=== PATIENT | male | born 1965 | race Caucasian/White ===

== ENCOUNTER 2017-05-11 16:53 | Inpatient (IN) | payer BC, OTHER ==
[~2017-05-11] VITALS: Ht 193 cm; Wt 111.5 kg
[2017-05-11] MEDS ORDERED: SOD CHLORIDE 0.9% 1,000 ML IV STA (21:09)
[2017-05-11] MEDS ORDERED: ONDANSETRON 4 MG INJ IV STA (21:09)
[2017-05-11] MEDS ORDERED: morphine 4 MG/ML VIAL IV STA (21:09)
[2017-05-11 21:40] LABS: ADD SCAN DIFF NO
[2017-05-11 21:49] LABS: ABNORMAL IP MESSAGE 1; HEMATOCRIT 42.6 % (42.0-52.0); MEAN CORPUSCULAR HEMOGLOBIN 31.4 pg (29.0-33.0); MEAN CORPUSCULAR HGB CONC 35.2 g/dl (32.0-37.0); MEAN CORPUSCULAR VOLUME 89.3 fl (82.0-101.0); MEAN PLATELET VOLUME 13.9 fl (7.4-10.4); PLATELET COUNT 180 10^3/UL (140-415); RED BLOOD COUNT 4.77 10^6/ul (4.70-6.10); RED CELL DISTRIBUTION WIDTH 12.6 % (11.5-14.5); WHITE BLOOD COUNT 10.9 10^3/ul (4.8-10.8)
[2017-05-11 22:00] LABS: INR 0.99; PROTIME 13.1 Sec (12.2-14.2)
[2017-05-11 22:01] LABS: PARTIAL THROMBOPLASTIN TIME 26.3 Sec (25.0-35.0)
[2017-05-11 22:02] LABS: ALBUMIN 4.5 g/dl (3.3-4.9); ALBUMIN/GLOBULIN RATIO 1.6; BILIRUBIN,INDIRECT 0.2 mg/dl (0-1.1); BILIRUBIN,TOTAL 0.2 mg/dl (0.2-1.3); CALCIUM 9.9 mg/dl (8.4-10.2); CREATININE 0.79 mg/dl (0.61-1.24); POTASSIUM 3.8 mmol/L (3.5-5.1); TOTAL PROTEIN 7.3 g/dl (6.1-8.1)
[2017-05-11] MEDS ORDERED: IOHEXOL 300MG/ML 150 ML BTL ONE (22:27)
[2017-05-11] MEDS ORDERED: SOD CHLORIDE 0.9% 100 ML ONE (22:27)
[2017-05-11] MEDS ORDERED: HYDROmorphONE 1 MG/ML SYG IV STA (22:30)
[2017-05-11 22:58] LABS: EOSINOPHILS # 0.3 10^3/ul (0.0-0.5); LYMPHOCYTES # 3.5 10^3/ul (0.8-2.9); MONOCYTE # 0.8 10^3/ul (0.3-0.9); NEUTROPHIL # 6.3 10^3/ul (1.6-7.5)
--- NOTE | 2017-05-11 23:10 | RADRPT ---
PROCEDURE: XR Chest. CLINICAL INDICATION: Abdominal Pain TECHNIQUE: Single frontal view of the chest. COMPARISON: None. FINDINGS: The cardiomediastinal silhouette is within normal limits. Pulmonary vascular ingestion and bilateral lung base atelectasis versus airspace disease. findings suggest mild failure versus mild bilateral lung base pneumonias, left greater than right. No signs of pleural fluid or pneumothorax are seen. The osseous structures and soft tissues are unremarkable. IMPRESSION: Mild failure versus mild bilateral lung base pneumonias, left greater than right. RPTAT: [facility] Physician Asael Date Time Electronically viewed and signed by Physician Asael on 05/11/2017 23:10 RS/
--- NOTE | 2017-05-11 23:50 | RADRPT ---
PROCEDURE: CT Abdomen and Pelvis with contrast. CLINICAL INDICATION: Abdominal and back pain. TECHNIQUE: A CT scan of the abdomen and pelvis was performed with intravenous contrast. The patie nt was scanned following the uncomplicated intravenous administration of 100 cc of Omnipaque-300. C oronal and sagittal reformatted images were obtained from the axial source images. Images were revie wed on a high-resolution PACS workstation. CTDIvol: 21.28 mGy. DLP: 1440.07 mGy-cm. One or more of the following dose reduction techniques were used: - Automated exposure control. - Adjustment of the mA and/or kV according to patient size. - Use of iterative reconstruction technique. COMPARISON: None. FINDINGS: There is mild atelectasis in both lower lungs. A trace right pleural effusion is noted. There are scattered low attenuation hepatic lesions measuring up to 3.2 cm in the right hepatic lobe , nonspecific. The gallbladder is normal in appearance. The common bile duct is not dilated. A nonsp ecific 1.0 cm low-attenuation lesion is noted in the posterior spleen. There is a 4.6 x 6.5 x 4.9 cm hypoenhancing mass in the pancreas body and tail, suspicious for adeno carcinoma. The mass broadly abuts the posterior gastric body and encases the celiac and proximal spl enic arteries, without evidence of arterial occlusion. The splenic vein appears completely occluded as it courses through the lesion. Venous collaterals are noted in the left upper quadrant. The sup erior mesenteric and portal veins are widely patent. Several small peripancreatic and gastrohepatic lymph nodes are identified in the region of the mass. These are nonspecific but at least some of th em appear suspicious for metastatic disease. The kidneys are normal in size. There is no perinephric fat stranding. No hydronephrosis is seen. Th e adrenal glands are unremarkable. The small and large bowel are normal in caliber. There is no bowel wall thickening. The appendix is normal. The urinary bladder is unremarkable. The pelvic organs are within normal limits. There is no ascites. No pneumoperitoneum is seen. There are mild arterial calcifications. There is a very small fat-containing umbilical hernia. There are calcified injection granulomas in the subcutaneous fat of both buttocks. No suspicious osseous lesion is idenitified. Degenerative changes are noted at L5-S1, with moderate to severe bilateral neural foraminal narrowing. The patient status post prior internal fixation of the left femur. IMPRESSION: 1. 4.6 x 6.5 x 4.9 cm hypoenhancing mass in the pancreas body and tail, suspicious for adenocarcino ma. The mass broadly abuts the posterior gastric body and encases the celiac and proximal splenic ar teries, without evidence of arterial occlusion. The splenic vein appears completely occluded as it c ourses through the lesion. 2. Several small peripancreatic and gastrohepatic lymph nodes in the region of the mass. These are nonspecific but at least some of them appear suspicious for metastatic disease. 3. Scattered low attenuation hepatic lesions measuring up to 3.2 cm in the right hepatic lobe, nons pecific but suspicious for metastases. These could be further evaluated with [address] or contrast enhanced MRI if clinically warranted. 4. Nonspecific 1.0 cm low-attenuation lesion in the posterior spleen, also possibly representing a metastasis. This could be further evaluated with ultrasound or contrast enhanced MRI if clinically warranted. 5. Mild atherosclerotic arterial calcifications. 6. Moderate to severe bilateral neural foraminal narrowing at L5-S1. Call report: A call report of the findings was made to Dr. Everett at 11:46 p.m. on 05/11/2017. RPTAT: HTAR .[place] Londono MD, Date Time Electronically viewed and signed by .[place] Londono MD, MD on 05/11/2017 23:50 .R/
[2017-05-12] MEDS ORDERED: ACETAMINOPHEN 325 MG TAB PO PRN ×2 (00:30→03:00)
[2017-05-12] MEDS ORDERED: ONDANSETRON 4 MG INJ IV PRN (00:30)
[2017-05-12] MEDS ORDERED: HYDROmorphONE 1 MG/ML SYG IV STA (00:44)
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
[2017-05-12] MEDS ORDERED: DOCUSATE SODIUM 100 MG CAP PO PRN (03:00)
[2017-05-12] MEDS ORDERED: DEXTROSE 5%-0.9% NACL 1,000 ML IV SCH (03:00)
[2017-05-12] MEDS ORDERED: DEXTROSE 50% 50 ML SYRINGE IV PRN ×2 (03:15)
[2017-05-12] MEDS ORDERED: GLUCAGON 1 MG INJ IM PRN (03:15)
[2017-05-12] MEDS ORDERED: GLUCOSE GEL 15 GRAM TUBE BUCCAL PRN (03:15)
[2017-05-12] MEDS ORDERED: GLUCOSE GEL 15 GRAM TUBE PO PRN ×2 (03:15)
[2017-05-12] MEDS: HYDROmorphONE 1 MG/ML SYG IV PRN ×3 (03:22→09:40)
[2017-05-12 04:32] LABS: ADD SCAN DIFF NO
[2017-05-12 04:43] LABS: ABNORMAL IP MESSAGE 1; BASOPHILS % 0.4 % (0.0-2.0); EOSINOPHILS # 0.2 10^3/ul (0.0-0.5); EOSINOPHILS % 2.1 % (0.0-7.0); HEMATOCRIT 40.5 % (42.0-52.0); HEMOGLOBIN 13.5 g/dl (14.0-18.0); LYMPHOCYTES # 2.7 10^3/ul (0.8-2.9); LYMPHOCYTES % 26.3 % (15.0-51.0); MEAN CORPUSCULAR HEMOGLOBIN 30.4 pg (29.0-33.0); MEAN CORPUSCULAR HGB CONC 33.3 g/dl (32.0-37.0); MEAN CORPUSCULAR VOLUME 91.2 fl (82.0-101.0); MEAN PLATELET VOLUME 13.4 fl (7.4-10.4); MONOCYTE # 0.7 10^3/ul (0.3-0.9); MONOCYTES % 7.1 % (0.0-11.0); NEUTROPHIL # 6.6 10^3/ul (1.6-7.5); NEUTROPHILS % 63.3 % (39.0-77.0); PLATELET COUNT 174 10^3/UL (140-415); RED BLOOD COUNT 4.44 10^6/ul (4.70-6.10); RED CELL DISTRIBUTION WIDTH 12.7 % (11.5-14.5); WHITE BLOOD COUNT 10.4 10^3/ul (4.8-10.8)
[2017-05-12 04:58] LABS: ALBUMIN/GLOBULIN RATIO 1.66; BILIRUBIN,INDIRECT 0.1 mg/dl (0-1.1); BILIRUBIN,TOTAL 0.1 mg/dl (0.2-1.3); CALCIUM 8.8 mg/dl (8.4-10.2); CREATININE 0.83 mg/dl (0.61-1.24); POTASSIUM 4.1 mmol/L (3.5-5.1); TOTAL PROTEIN 6.4 g/dl (6.1-8.1)
[2017-05-12 06:13] LABS: ADD UMIC NO; UR ASCORBIC ACID NEGATIVE (NEGATIVE); UR BILIRUBIN (Dip) NEGATIVE (NEGATIVE); UR BLOOD (Dip) NEGATIVE (NEGATIVE); UR CLARITY CLEAR (CLEAR); UR COLOR YELLOW (YELLOW); UR GLUCOSE (Dip) NEGATIVE (NEGATIVE); UR KETONES (Dip) TRACE mg/dL (NEGATIVE); UR LEUKOCYTE ESTERASE (Dip) NEGATIVE Leu/ul (NEGATIVE); UR NITRITE (Dip) NEGATIVE (NEGATIVE); UR SPECIFIC GRAVITY (Dip) 1.059 (1.003-1.030); UR TOTAL PROTEIN (Dip) NEGATIVE (NEGATIVE); UR UROBILINOGEN (Dip) NEGATIVE (NEGATIVE)
[2017-05-12] MEDS: PANTOPRAZOLE 40 MG INJ IV SCH (06:28)
[2017-05-12 07:43] VITALS: BP 137/89; RESP 18
[2017-05-12] MEDS: NICOTINE (21 MG/24 HR) PATCH TRANSDERM SCH (08:49)
[2017-05-12] MEDS: INSULIN ASPART [NOVOLOG] 3 ML PEN SC SCH ×4 (08:49→21:00)
[2017-05-12] MEDS ORDERED: HYDROmorphONE 1 MG/ML SYG IV PRN (12:00)
[2017-05-12] MEDS: SOD CHLORIDE 0.9% 1,000 ML IV SCH (12:27)
[2017-05-12] MEDS: HYDROmorphONE 0.2 MG/ML PCA IV SCH ×2 (13:38→21:26)
[2017-05-12] MEDS: IBUPROFEN 400 MG TAB PO SCH ×2 (13:39→17:58)
--- NOTE | 2017-05-12 15:59 | QN ---
Documentation Comment [id number] ENRIQUE LOPEZ MD May 12, 2017 15:59
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
[2017-05-12 20:24] VITALS: BP 154/83; RESP 22
[2017-05-13] VITALS (7 sets, daily range): BP systolic 126–164; BP diastolic 77–94; PULSE 52–62; RESP 16–20
[2017-05-13] MEDS: IBUPROFEN 400 MG TAB PO SCH ×4 (00:59→17:54)
[2017-05-13] MEDS: ACCU-CHEK XX SCH (02:00)
[2017-05-13 05:02] LABS: ADD SCAN DIFF NO
[2017-05-13] MEDS: SOD CHLORIDE 0.9% 1,000 ML IV SCH ×3 (05:05→22:33)
[2017-05-13 05:06] LABS: ABNORMAL IP MESSAGE 1; BASOPHILS % 0.5 % (0.0-2.0); EOSINOPHILS # 0.2 10^3/ul (0.0-0.5); EOSINOPHILS % 2.2 % (0.0-7.0); HEMATOCRIT 38.4 % (42.0-52.0); HEMOGLOBIN 12.6 g/dl (14.0-18.0); LYMPHOCYTES # 2.6 10^3/ul (0.8-2.9); LYMPHOCYTES % 31.1 % (15.0-51.0); MEAN CORPUSCULAR HEMOGLOBIN 29.9 pg (29.0-33.0); MEAN CORPUSCULAR HGB CONC 32.8 g/dl (32.0-37.0); MEAN CORPUSCULAR VOLUME 91.2 fl (82.0-101.0); MEAN PLATELET VOLUME 13.7 fl (7.4-10.4); MONOCYTE # 0.6 10^3/ul (0.3-0.9); MONOCYTES % 7.2 % (0.0-11.0); NEUTROPHILS % 58.3 % (39.0-77.0); PLATELET COUNT 162 10^3/UL (140-415); RED BLOOD COUNT 4.21 10^6/ul (4.70-6.10); RED CELL DISTRIBUTION WIDTH 12.9 % (11.5-14.5); WHITE BLOOD COUNT 8.5 10^3/ul (4.8-10.8)
[2017-05-13 05:52] LABS: ALBUMIN 3.7 g/dl (3.3-4.9); ALBUMIN/GLOBULIN RATIO 1.54; BILIRUBIN,INDIRECT 0.1 mg/dl (0-1.1); BILIRUBIN,TOTAL 0.1 mg/dl (0.2-1.3); CREATININE 0.76 mg/dl (0.61-1.24); POTASSIUM 3.6 mmol/L (3.5-5.1); TOTAL PROTEIN 6.1 g/dl (6.1-8.1)
[2017-05-13] MEDS: HYDROmorphONE 0.2 MG/ML PCA IV SCH ×3 (06:04→22:30)
[2017-05-13] MEDS: PANTOPRAZOLE 40 MG INJ IV SCH (06:10)
[2017-05-13] MEDS: INSULIN ASPART [NOVOLOG] 3 ML PEN SC SCH ×4 (07:50→21:00)
[2017-05-13] MEDS: HYDROmorphONE 1 MG/ML SYG IV PRN ×2 (07:54→14:15)
[2017-05-13] MEDS ORDERED: NALOXONE (0.4 MG/ML) INJ IV PRN (08:00)
[2017-05-13] MEDS: NICOTINE (21 MG/24 HR) PATCH TRANSDERM SCH (08:22)
--- NOTE | 2017-05-13 10:45 | RADRPT ---
Echocardiogram Report Patient Name: ОЛЕГ ROBERTS Gender: Male Date: 1965 Study Date: 13-May-2017 Parts Counter Specialist: Joseph [facility] Location: [id number] Ref. Physician: ENRIQEU LOPEZ Quality: Adequate Procedures: Transthoracic echocardiogram with complete 2D, M-Mode, and doppler examination. Indications: Bradycardia. 2D/M Mode Doppler Measurement Value Normal Ranges Measurement Value Normal Ranges LVIDd 2D 4.7 3.5 - 5.6 cm AV Peak [place] 1.5 m/sec LVIDs 2D 3.2 2.1 - 4.1 cm AV Peak PG 9.0 mmHg FS 2D 31.0 % LVOT Peak [place] 1.3 m/sec LVPWd 2D 1.3 0.6 - 1.1 cm LVOT Peak PG 6.0 mmHg IVSd 2D 1.3 0.6 - 1.1 cm MV E Peak [place] 1.0 m/sec IVS/LVPW 2D 1.0 MV A Peak [place] 0.5 m/sec AoR Diam 2D 3.0 2.0 - 3.7 cm MV E/A 2.0 LA/Ao 2D 1 0 - 1 MV Decel Time 243 msec EDV 2D 101.0 cm3 MV E/A 2.0 ESV 2D 33.1 cm3 TR Peak [place] 2.8 m/sec LA Dimen 2D 4.0 2.3 - 4.0 cm TR Peak PG 31.0 mmHg RVSP 46.0 mmHg Findings Left Ventricle: Normal left ventricular systolic function. Normal left ventricular cavity size. Mild concentric left ventricular hypertrophy. Ejection fraction is visually estimated at 60 %. Abnormal Diastolic Function. Right Ventricle: Normal right ventricular size. Normal right ventricular systolic function. Left Atrium: The left atrium is normal in size. Right Atrium: The right atrium is normal in size. Mitral Valve: Mild mitral leaflet calcification. Mild mitral annular calcification. Trace mitral regurgitation. Aortic Valve: Normal appearance of the aortic valve. No significant aortic stenosis or insufficiency. Tricuspid Valve: Normal appearance of the tricuspid valve. Estimated peak PA systolic pressure 46 mmHg. There is mild tricuspid regurgitation. Pericardium: Normal pericardium with no significant pericardial effusion. Aorta: Normal aortic root. IVC: Dilated inferior vena cava with poor inspiratory collapse consistent with elevated right atrial pressures. Conclusions Normal left ventricular systolic function. Normal left ventricular cavity size. Mild concentric left ventricular hypertrophy. Ejection fraction is visually estimated at 60 %. Abnormal Diastolic Function. Mild mitral leaflet calcification. Mild mitral annular calcification. Trace mitral regurgitation. Normal appearance of the tricuspid valve. Estimated peak PA systolic pressure 46 mmHg. There is mild tricuspid regurgitation. Electronically Signed By: Juan Duval 13-May-2017 10:44:16 -0700 Patient Name: ОЛЕГ ROBERTS Study Date: 13-May-2017 [id number]
[2017-05-13 11:23] LABS: T3 UPTAKE 36.2 % (23.5-40.5)
[2017-05-13] MEDS ORDERED: DIPHENHYDRAMINE 50 MG INJ ONE (11:35)
[2017-05-13] MEDS ORDERED: MIDAZOLAM 1 MG/ML 2 ML INJ ONE (11:35)
[2017-05-13] MEDS ORDERED: LIDOCAINE 1% (MDV) 20 ML INJ ONE (11:35)
[2017-05-13] MEDS ORDERED: FENTAnyl 50 MCG/ML VIAL ONE (11:35)
[2017-05-13 11:37] LABS: TRIIODOTHYRONINE 1.39 ng/ml (0.97-1.69)
--- NOTE | 2017-05-13 11:54 | CONS ---
Date/Time of Note Date/Time of Note DATE: 05/13/17 TIME: 11:49 Assessment/Plan Assessment/Plan Chief Complaint/Hosp Course 51 yo male with a 4.6 x 6.5 x 4.9 cm hypoenhancing mass in the pancreas body and tail, suspicious for adenocarcinoma with several small peripancreatic and gastrohepatic lymph nodes in the region of the mass as well as scattered low attenuation hepatic lesions measuring up to 3.2 cm in the right hepatic lobe suspicious for metastases. CA 19-9 elevated at 2800 which is also very concerning for pancreatic adenocarcinoma -pt has been scheduled for a CT guided liver biopsy by IR -will f/w results -will consult hepatobiliary surgery to definitively rule out surgery as an option. -if confirmed to have pancreatic adenoca pt will need systemic chemotherapy , likely Folfirinox -will consult palliative care to assist with pain management Problems: Consultation Date/Type/Reason Admit Date/Time May 12, 2017 at 00:19 Initial Consult Date 05/12/17 Type of Consultation: oncology Reason for Consultation pancreatic mass and liver mass Referring Provider: ENRIQUE LOPEZ MD 24 HR Interval Summary Free Text/Dictation pt was in excruciating pain this morning. Dilaudid QUALITY CONTROL SUPERVISOR was increased. Bx done today Exam/Review of Systems Vital Signs Vitals Vital Signs Date Time Temp Pulse Resp B/P Pulse Ox O2 Delivery O2 Flow Rate FiO2 05/13/17 08:04 97.8 51 18 128/81 94 05/12/17 00:52 Room Air Intake and Output 05/12/17 05/12/17 05/13/17 15:00 23:00 07:00 Intake Total 490 ml 3950 ml 0 ml Output Total 800 ml Balance 490 ml 3950 ml -800 ml Exam Constitutional: alert, oriented Psych: no complaints Head: atraumatic, normocephalic ENMT: nl external ears & nose Neck: non-tender, supple Respiratory: clear to auscultation, normal air movement Cardiovascular: regular rate and rhythm Gastrointestinal: distended, tender Musculoskeletal: nl extremities to inspection Results Result Diagram: 05/13/17 0415 05/13/17 0415 Results 24 hrs Laboratory Tests Test 05/12/17 12:26 05/12/17 14:20 05/12/17 17:35 05/12/17 21:28 Bedside Glucose 123 137 135 CA 19-9 Antigen 2800.0 H Test 05/13/17 04:15 05/13/17 08:15 White Blood Count 8.5 Red Blood Count 4.21 L Hemoglobin 12.6 L Hematocrit 38.4 L Mean Corpuscular Volume 91.2 Mean Corpuscular Hemoglobin 29.9 Mean Corpuscular Hemoglobin Concent 32.8 Red Cell Distribution Width 12.9 Platelet Count 162 Mean Platelet Volume 13.7 H Neutrophils % 58.3 Lymphocytes % 31.1 Monocytes % 7.2 Eosinophils % 2.2 Basophils % 0.5 Nucleated Red Blood Cells % 0.0 Neutrophils # 5.0 Lymphocytes # 2.6 Monocytes # 0.6 Eosinophils # 0.2 Basophils # 0.0 Nucleated Red Blood Cells # 0.0 Sodium Level 139 Potassium Level 3.6 Chloride Level 99 Carbon Dioxide Level 27 Anion Gap 17 #H Blood Urea Nitrogen 12 Creatinine 0.76 Glucose Level 136 Calcium Level 9.0 Total Bilirubin 0.1 L Direct Bilirubin 0.00 Indirect Bilirubin 0.1 Aspartate Amino Transf (AST/SGOT) 19 Alanine Aminotransferase (ALT/SGPT) 36 Alkaline Phosphatase 94 Total Protein 6.1 Albumin 3.7 Globulin 2.40 Albumin/Globulin Ratio 1.54 Bedside Glucose 130 Medications Medications Current Medications Diagnostic Test (Pha) (Accu-Chek) 1 ea 02 XX ; Start 05/13/17 at 02:00 Hydromorphone HCl (Dilaudid) 0.5 mg Q3H PRN IV SEVERE PAIN LEVEL 7-10 Last administered on 05/13/17 07:54; Admin Dose 0.5 MG; Start 05/12/17 at 03:00 Ondansetron HCl (Zofran Inj) 4 mg Q4H PRN IV NAUSEA AND/OR VOMITING; Start 05/12 at 03:00 Bisacodyl (Dulcolax) 10 mg BID PRN PO CONSTIPATION; Start 05/12/17 at 03:00 Nicotine (Nicoderm 21 Mg/ 24hr) 1 patch DAILY TRANSDERM ; Start 05/12/17 at 09:00 Docusate Sodium (Colace) 100 mg BID PRN PO CONSTIPATION; Start 05/12/17 at 03:00 Acetaminophen (Tylenol Tab) 650 mg Q6H PRN PO PAIN AND OR ELEVATED TEMP Last administered on 05/12/17 11:52; Admin Dose 650 MG; Start 05/12/17 at 03:00 Pantoprazole (Protonix Iv) 40 mg DAILY@06 IV Last administered on 05/13/17 06: 10; Admin Dose 40 MG; Start 05/12/17 at 06:00 Miscellaneous Information 1 ea NOTE XX ; Start 05/12/17 at 03:15 Glucose (Glutose) 15 gm Q15M PRN PO DECREASED GLUCOSE; Start 05/12/17 at 03:15 Glucose (Glutose) 22.5 gm Q15M PRN PO DECREASED GLUCOSE; Start 05/12/17 at 03:15 Dextrose (D50w Syringe) 25 ml Q15M PRN IV DECREASED GLUCOSE; Start 05/12/17 at 03:15 Dextrose (D50w Syringe) 50 ml Q15M PRN IV DECREASED GLUCOSE; Start 05/12/17 at 03:15 Glucagon (Glucagen) 1 mg Q15M PRN IM DECREASED GLUCOSE; Start 05/12/17 at 03:15 Glucose 15 gm 15 gm Q15M PRN BUCCAL DECREASED GLUCOSE; Start 05/12/17 at 03:15 Sodium Chloride (NS) 1,000 ml @ 70 mls/hr [id number] IV Last administered on 05:05; Admin Dose 70 MLS/HR; Start 05/12/17 at 12:00 Hydromorphone HCl (Dilaudid) 1 mg Q3H PRN IV PAIN Last administered on 12:25; Admin Dose 1 MG; Start 05/12/17 at 12:00 Hydromorphone HCl (Dilaudid QUALITY CONTROL SUPERVISOR) 0.5 MG/HR CONTINUOUS R... Q4PCA IV Last administered on 05/13/17 06:04; Admin Dose 6 MG; Start 05/12/17 at 13:00 Ibuprofen (Motrin) 400 mg Q6 PO Last administered on 05/13/17 00:59; Admin Dose 400 MG; Start 05/12/17 at 13:00 Naloxone HCl (Narcan) 0.2 mg Q2M PRN IV DECREASED REPIRATORY RATE; Start at 08:00 PUJA ROMERO M.D. May 13, 2017 11:53
--- NOTE | 2017-05-13 13:45 | RADRPT ---
PROCEDURE: CT Chest with contrast. CLINICAL INDICATION: Pancreatic lesion. There is a question of metastatic disease. TECHNIQUE: CT scan of the chest was performed after the uneventful intravenous administration of 90 cc of Omnip aque-350 contrast. Coronal and sagittal reformatted images were obtained from the axial source imag es. The total exam CTDI equals 15.75 mGy and the total exam DLP equals 601.8 mGy-cm. One or more of the following dose reduction techniques were used: - Automated exposure control. - Adjustment of the mA and/or kV according to patient size. - Use of iterative reconstruction technique. COMPARISON: CT of the abdomen and pelvis dated 05/11/2017. FINDINGS: Lungs, pleura, airways, and thoracic inlet: There is a small to moderate right and a trace left pleural effusion with associated bibasilar compr essive atelectasis. There are scattered areas of ground-glass opacity with superimposed interlobular septal thickening in the left suprahilar region and bilateral lateral lung apices, left greater leyda n right. There are additional smaller scattered areas of ground-glass opacity with superimposed inte rlobular septal thickening scattered throughout both lungs. There is no pneumothorax. There is abno rmal nodularity along the right minor and major fissures. The tracheobronchial tree is patent and no rmal in course and caliber. Cardiovascular system, mediastinum, and lymphatics: The heart is normal in size without pericardial thickening or effusion. There are multivessel alonzo ry artery calcifications. The aorta is nonaneurysmal. There is no axillary, hilar, or mediastinal ad enopathy. Visualized upper abdomen: There is a 12 mm hypodense lesion with peripheral enhancement in segment 8 of the liver and a 3 cm l esion with similar imaging characteristics in segment 7. There are additional sub-centimeter hypode nsities in the liver that are too small to further characterize. A hypodense mass centered in the p ancreas body and tail is again identified. Peripancreatic and gastrohepatic ligament lymph nodes ar e again identified. There are multiple varices in the upper abdomen. Musculoskeletal system: There is mild to moderate multilevel degenerative spondylosis. There are no concerning osseous lesio ns. IMPRESSION: 1. Small to moderate right and small left pleural effusions with associated bibasilar compressive a telectasis. 2. Abnormal nodularity along the right minor and major fissures, which is nonspecific, but suspicio us for metastatic disease. attention on follow-up is recommended. 3. Patchy ground-glass opacity with superimposed interlobular septal thickening in the left suprahi lar region and at both lung apices, left greater than right, with additional smaller areas scattered throughout both lungs. This is nonspecific and could reflect early infection. 4. Hypodense mass centered in the pancreatic body and tail, highly concerning for pancreatic adenoc arcinoma. 5. Peripherally enhancing events hepatic lesions, the largest measuring 3 cm in segment 7, highly s uspicious for metastatic disease. Additional sub-centimeter hypodense lesions in the liver, also mendoza spicious for metastatic disease. these can be further characterize with MRI with E[facility]. 6. Nonspecific prominent peripancreatic and gastrohepatic ligament lymph nodes, also suspicious for metastatic disease. RPTAT: GG .Kush Do MD, MD Date Time Electronically viewed and signed by .Kush Do MD, on 05/13/2017 13:44 .P/
--- NOTE | 2017-05-13 13:54 | PN ---
Date/Time of Note Date/Time of Note DATE: 05/13/17 TIME: 13:51 Assessment/Plan VTE Prophylaxis VTE Prophylaxis Intervention: ambulation Lines/Catheters IV Catheter Type (from Nrs): Peripheral IV Urinary Cath still in place: No Assessment/Plan Chief Complaint/Hosp Course 1. DM uncontrolled 2. Possible adenocarcinoma of the pancreas with lymphadenopathy 3. S/p biopsy of abdomen 4. Obesity 5. Nocturnal bradycardia 6. Hepatic lesions Problems: Assessment/Plan 1. Pain control by dr Floyd 2. Consult by dr Duval Subjective 24 Hr Interval Summary Musculoskeletal: other (pain in right flank and avdomen) Exam/Review of Systems Vital Signs Vitals Vital Signs Date Time Temp Pulse Resp B/P Pulse Ox O2 Delivery O2 Flow Rate FiO2 05/13/17 08:04 97.8 51 18 128/81 94 05/12/17 00:52 Room Air Intake and Output 05/12/17 05/12/17 05/13/17 15:00 23:00 07:00 Intake Total 490 ml 3950 ml 0 ml Output Total 800 ml Balance 490 ml 3950 ml -800 ml Exam Constitutional: alert, oriented, well developed Psych: nl mood/affect, no complaints Head: atraumatic, normocephalic Eyes: EOMI, nl conjunctiva ENMT: nl external ears & nose, nl lips & teeth Neck: supple Respiratory: clear to auscultation Cardiovascular: regular rate and rhythm Gastrointestinal: soft Genitourinary - Male: nl penis Extremities: normal pulses Results Result Diagram: 05/13/17 0415 05/13/17 0415 Results 24 hrs Laboratory Tests Test 05/12/17 14:20 05/12/17 17:35 05/12/17 21:28 05/13/17 04:15 CA 19-9 Antigen 2800.0 H Bedside Glucose 137 135 White Blood Count 8.5 Red Blood Count 4.21 L Hemoglobin 12.6 L Hematocrit 38.4 L Mean Corpuscular Volume 91.2 Mean Corpuscular Hemoglobin 29.9 Mean Corpuscular Hemoglobin Concent 32.8 Red Cell Distribution Width 12.9 Platelet Count 162 Mean Platelet Volume 13.7 H Neutrophils % 58.3 Lymphocytes % 31.1 Monocytes % 7.2 Eosinophils % 2.2 Basophils % 0.5 Nucleated Red Blood Cells % 0.0 Neutrophils # 5.0 Lymphocytes # 2.6 Monocytes # 0.6 Eosinophils # 0.2 Basophils # 0.0 Nucleated Red Blood Cells # 0.0 Sodium Level 139 Potassium Level 3.6 Chloride Level 99 Carbon Dioxide Level 27 Anion Gap 17 #H Blood Urea Nitrogen 12 Creatinine 0.76 Glucose Level 136 Calcium Level 9.0 Total Bilirubin 0.1 L Direct Bilirubin 0.00 Indirect Bilirubin 0.1 Aspartate Amino Transf (AST/SGOT) 19 Alanine Aminotransferase (ALT/SGPT) 36 Alkaline Phosphatase 94 Total Protein 6.1 Albumin 3.7 Globulin 2.40 Albumin/Globulin Ratio 1.54 Test 05/13/17 08:15 05/13/17 09:11 05/13/17 13:32 Bedside Glucose 130 135 Free Thyroxine Index 4.49 H Thyroxine (T4) 12.4 H Total Triiodothyronine 1.39 Triiodothyronine (T3) Uptake 36.2 Medications Medications Current Medications Diagnostic Test (Pha) (Accu-Chek) 1 ea 02 XX ; Start 05/13/17 at 02:00 Hydromorphone HCl (Dilaudid) 0.5 mg Q3H PRN IV SEVERE PAIN LEVEL 7-10 Last administered on 05/13/17 07:54; Admin Dose 0.5 MG; Start 05/12/17 at 03:00 Ondansetron HCl (Zofran Inj) 4 mg Q4H PRN IV NAUSEA AND/OR VOMITING; Start 05/12 at 03:00 Bisacodyl (Dulcolax) 10 mg BID PRN PO CONSTIPATION; Start 05/12/17 at 03:00 Nicotine (Nicoderm 21 Mg/ 24hr) 1 patch DAILY TRANSDERM ; Start 05/12/17 at 09:00 Docusate Sodium (Colace) 100 mg BID PRN PO CONSTIPATION; Start 05/12/17 at 03:00 Acetaminophen (Tylenol Tab) 650 mg Q6H PRN PO PAIN AND OR ELEVATED TEMP Last administered on 05/12/17 11:52; Admin Dose 650 MG; Start 05/12/17 at 03:00 Pantoprazole (Protonix Iv) 40 mg DAILY@06 IV Last administered on 05/13/17 06: 10; Admin Dose 40 MG; Start 05/12/17 at 06:00 Miscellaneous Information 1 ea NOTE XX ; Start 05/12/17 at 03:15 Glucose (Glutose) 15 gm Q15M PRN PO DECREASED GLUCOSE; Start 05/12/17 at 03:15 Glucose (Glutose) 22.5 gm Q15M PRN PO DECREASED GLUCOSE; Start 05/12/17 at 03:15 Dextrose (D50w Syringe) 25 ml Q15M PRN IV DECREASED GLUCOSE; Start 05/12/17 at 03:15 Dextrose (D50w Syringe) 50 ml Q15M PRN IV DECREASED GLUCOSE; Start 05/12/17 at 03:15 Glucagon (Glucagen) 1 mg Q15M PRN IM DECREASED GLUCOSE; Start 05/12/17 at 03:15 Glucose 15 gm 15 gm Q15M PRN BUCCAL DECREASED GLUCOSE; Start 05/12/17 at 03:15 Sodium Chloride (NS) 1,000 ml @ 70 mls/hr [id number] IV Last administered on 05:05; Admin Dose 70 MLS/HR; Start 05/12/17 at 12:00 Hydromorphone HCl (Dilaudid) 1 mg Q3H PRN IV PAIN Last administered on 12:25; Admin Dose 1 MG; Start 05/12/17 at 12:00 Hydromorphone HCl (Dilaudid INFORMATION SUPPORT PROJECT MANAGER) 0.5 MG/HR CONTINUOUS R... Q4PCA IV Last administered on 05/13/17 06:04; Admin Dose 6 MG; Start 05/12/17 at 13:00 Ibuprofen (Motrin) 400 mg Q6 PO Last administered on 05/13/17 00:59; Admin Dose 400 MG; Start 05/12/17 at 13:00 Naloxone HCl (Narcan) 0.2 mg Q2M PRN IV DECREASED REPIRATORY RATE; Start at 08:00 ELIZABET ESPINOZA May 13, 2017 13:53
--- NOTE | 2017-05-13 14:22 | RADRPT ---
PROCEDURE: CT guided pancreas mass biopsy. CLINICAL INDICATION: Ass in the body of the pancreas. TECHNIQUE: Informed consent was obtained. The procedure, risks, benefits, complications and alternatives were e xplained to the patient. Risks including bleeding and infection were explained. The patient understo od and was willing to proceed. A procedural pause was performed. The patient's name, date of , and procedure to be performed were verified. One or more of the following dose reduction techniqu es were used: Automated exposure control, adjustment of the mA and/or kV according to patient size, use of iterative reconstruction technique. Using local anesthetic, sterile technique and CT guidance, a 20-gauge automated core biopsy needle w as used to biopsy the mass in the body of the pancreas. Multiple passes were made. Adequate tissue was obtained according to the pathologist present during the procedure. The needle was removed. A postprocedural scan was performed. A dressing was applied. The patient tolerated procedure well. COMPARISON: None. FINDINGS: Initial images demonstrate the tip of the needle at the anterior edge of the lesion in question. Post biopsy images demonstrate no immediate complication. IMPRESSION: 1. Successful CT guided pancreas mass biopsy. RPTAT: QQ .Douglas Archibald MD, MD Date Time Electronically viewed and signed by .Douglas Archibald MD, on 05/13/2017 14:22 .R/
[2017-05-13] MEDS: METHADONE (1 MG/ML 5 ML PO UD SYG) PO SCH ×2 (16:41→22:28)
--- NOTE | 2017-05-13 16:57 | RADRPT ---
Vent Rate: 53 bpm RR Interval: 0 msec [place] Interval: 124 msec QRS Duration: 92 msec QT Interval: 438 msec QTC Interval: 410 msec P-R-T Vernal: 39 - 52 - 58 degrees Sinus bradycardia Otherwise normal ECG Electronically Signed By: Armin Mcdowell [phone]
[2017-05-14] MEDS: IBUPROFEN 400 MG TAB PO SCH ×5 (00:12→23:48)
[2017-05-14] MEDS: ACCU-CHEK XX SCH (02:00)
[2017-05-14] MEDS: HYDROmorphONE 1 MG/ML SYG IV PRN (02:36)
[2017-05-14] MEDS: HYDROmorphONE 0.2 MG/ML PCA IV SCH ×5 (02:49→23:55)
[2017-05-14 05:23] LABS: ADD SCAN DIFF NO
[2017-05-14 05:30] LABS: ABNORMAL IP MESSAGE 1; BASOPHILS % 0.3 % (0.0-2.0); EOSINOPHILS # 0.1 10^3/ul (0.0-0.5); EOSINOPHILS % 1.1 % (0.0-7.0); HEMOGLOBIN 13.7 g/dl (14.0-18.0); LYMPHOCYTES # 1.8 10^3/ul (0.8-2.9); LYMPHOCYTES % 15.6 % (15.0-51.0); MEAN CORPUSCULAR HEMOGLOBIN 30.5 pg (29.0-33.0); MEAN CORPUSCULAR HGB CONC 34.3 g/dl (32.0-37.0); MEAN CORPUSCULAR VOLUME 89.1 fl (82.0-101.0); MEAN PLATELET VOLUME 14.1 fl (7.4-10.4); MONOCYTE # 0.8 10^3/ul (0.3-0.9); MONOCYTES % 7.1 % (0.0-11.0); NEUTROPHIL # 8.6 10^3/ul (1.6-7.5); NEUTROPHILS % 75.5 % (39.0-77.0); PLATELET COUNT 145 10^3/UL (140-415); RED BLOOD COUNT 4.49 10^6/ul (4.70-6.10); RED CELL DISTRIBUTION WIDTH 12.5 % (11.5-14.5); WHITE BLOOD COUNT 11.5 10^3/ul (4.8-10.8)
[2017-05-14 05:53] LABS: CALCIUM 9.2 mg/dl (8.4-10.2); CREATININE 0.75 mg/dl (0.61-1.24)
[2017-05-14 06:07] LABS: CHOL/HDL RATIO 7.1 RATIO
[2017-05-14] MEDS: PANTOPRAZOLE 40 MG INJ IV SCH (06:25)
[2017-05-14 07:00] VITALS: BP 127/83; RESP 18
--- NOTE | 2017-05-14 07:47 | CONS ---
Date/Time of Note Date/Time of Note DATE: 05/14/17 TIME: 07:42 Assessment/Plan Assessment/Plan Chief Complaint/Hosp Course IMP: 1.Bradycardia-NL TSH/trop negative x 2, overall improved 2.HTN 3.CHF-diatoloic acute on chronic 4.pancreatic mass 5.abd pain Recc: -Continue to follow HR closely -F/U path on pancreatic BX -Gentle lasix diuresis -Pain control Problems: Consultation Date/Type/Reason Admit Date/Time May 12, 2017 at 00:19 Initial Consult Date 05/12/17 Type of Consultation: cardiology Reason for Consultation Bradycardia Referring Provider: ENRIQUE LOPEZ MD Exam/Review of Systems Vital Signs Vitals Vital Signs Date Time Temp Pulse Resp B/P Pulse Ox O2 Delivery O2 Flow Rate FiO2 05/14/17 07:00 98.7 76 18 127/83 96 05/13/17 20:00 Nasal Cannula 2.0 Intake and Output 05/13/17 05/13/17 05/14/17 15:00 23:00 07:00 Intake Total 140 ml 1000 ml 500 ml Output Total 400 ml 800 ml Balance 140 ml 600 ml -300 ml Exam Review of Systems: CONSTITUTIONAL: No fevers, chills. PULMONARY: No sob CARDIOVASCULAR: No chest pain/palpitations GASTROINTESTINAL: No nausea/vomiting. GENITOURINARY: No hematuria/dysuria. MUSCULOSKELETAL: No myagias/arthalgias. PSYCHIATRIC: The patient denies depression. NEUROLOGIC: No weakness Constitutional: alert, oriented Psych: no complaints ENMT: mucosa pink and moist Neck: jvd (8-9 cm water), supple Respiratory: diminished breath sounds (at bases/B) Cardiovascular: regular rate and rhythm Gastrointestinal: non-tender, soft Musculoskeletal: muscle tone (normal) Extremities: edema (none) Neurological: other (No focal deficits) Results Result Diagram: 05/14/17 0455 05/14/17 0455 Results 24 hrs Laboratory Tests Test 05/13/17 08:15 05/13/17 09:11 05/13/17 13:32 05/13/17 17:57 Bedside Glucose 130 135 125 Thyroid Stimulating Hormone (TSH) 3.540 Free Thyroxine Index 4.49 H Thyroxine (T4) 12.4 H Total Triiodothyronine 1.39 Triiodothyronine (T3) Uptake 36.2 Test 05/13/17 18:10 05/13/17 21:26 05/14/17 00:50 05/14/17 04:55 Troponin I < 0.012 < 0.012 Bedside Glucose 132 White Blood Count 11.5 #H Red Blood Count 4.49 L Hemoglobin 13.7 L Hematocrit 40.0 L Mean Corpuscular Volume 89.1 Mean Corpuscular Hemoglobin 30.5 Mean Corpuscular Hemoglobin Concent 34.3 Red Cell Distribution Width 12.5 Platelet Count 145 Mean Platelet Volume 14.1 H Neutrophils % 75.5 Lymphocytes % 15.6 Monocytes % 7.1 Eosinophils % 1.1 Basophils % 0.3 Nucleated Red Blood Cells % 0.0 Neutrophils # 8.6 H Lymphocytes # 1.8 Monocytes # 0.8 Eosinophils # 0.1 Basophils # 0.0 Nucleated Red Blood Cells # 0.0 Sodium Level 139 Potassium Level 4.0 Chloride Level 100 Carbon Dioxide Level 25 Anion Gap 18 H Blood Urea Nitrogen 12 Creatinine 0.75 Glucose Level 132 Calcium Level 9.2 Triglycerides Level 168 H Cholesterol Level 186 LDL Cholesterol, Calculated 126 HDL Cholesterol 26 L Cholesterol/HDL Ratio 7.1 Medications Medications Current Medications Diagnostic Test (Pha) (Accu-Chek) 1 ea 02 XX ; Start 05/13/17 at 02:00 Ondansetron HCl (Zofran Inj) 4 mg Q4H PRN IV NAUSEA AND/OR VOMITING; Start 05/12 at 03:00 Bisacodyl (Dulcolax) 10 mg BID PRN PO CONSTIPATION; Start 05/12/17 at 03:00 Nicotine (Nicoderm 21 Mg/ 24hr) 1 patch DAILY TRANSDERM ; Start 05/12/17 at 09:00 Docusate Sodium (Colace) 100 mg BID PRN PO CONSTIPATION; Start 05/12/17 at 03:00 Acetaminophen (Tylenol Tab) 650 mg Q6H PRN PO PAIN AND OR ELEVATED TEMP Last administered on 05/12/17 11:52; Admin Dose 650 MG; Start 05/12/17 at 03:00 Pantoprazole (Protonix Iv) 40 mg DAILY@06 IV Last administered on 05/14/17 06: 25; Admin Dose 40 MG; Start 05/12/17 at 06:00 Miscellaneous Information 1 ea NOTE XX ; Start 05/12/17 at 03:15 Glucose (Glutose) 15 gm Q15M PRN PO DECREASED GLUCOSE; Start 05/12/17 at 03:15 Glucose (Glutose) 22.5 gm Q15M PRN PO DECREASED GLUCOSE; Start 05/12/17 at 03:15 Dextrose (D50w Syringe) 25 ml Q15M PRN IV DECREASED GLUCOSE; Start 05/12/17 at 03:15 Dextrose (D50w Syringe) 50 ml Q15M PRN IV DECREASED GLUCOSE; Start 05/12/17 at 03:15 Glucagon (Glucagen) 1 mg Q15M PRN IM DECREASED GLUCOSE; Start 05/12/17 at 03:15 Glucose 15 gm 15 gm Q15M PRN BUCCAL DECREASED GLUCOSE; Start 05/12/17 at 03:15 Sodium Chloride (NS) 1,000 ml @ 70 mls/hr [id number] IV Last administered on 22:33; Admin Dose 70 MLS/HR; Start 05/12/17 at 12:00 Hydromorphone HCl (Dilaudid PROVIDER ENGAGEMENT EXECUTIVE) 0.5 MG/HR CONTINUOUS RATE ... Q4PCA IV Last administered on 05/14/17 02:49; Admin Dose 6 MG; Start 05/12/17 at 13:00 Ibuprofen (Motrin) 400 mg Q6 PO Last administered on 05/14/17 06:25; Admin Dose 400 MG; Start 05/12/17 at 13:00 Naloxone HCl (Narcan) 0.2 mg Q2M PRN IV DECREASED REPIRATORY RATE; Start at 08:00 Methadone HCl (Methadone Liq) 3 mg BID PO Last administered on 05/13/17 22:28; Admin Dose 3 MG; Start 05/13/17 at 15:49 Hydromorphone HCl (Dilaudid) 0.5 mg Q1H PRN IV SEVERE PAIN LEVEL 7-10 Last administered on 05/14/17 02:36; Admin Dose 0.5 MG; Start 05/14/17 at 02:30 VASHTI KING May 14, 2017 07:47
[2017-05-14] MEDS: INSULIN ASPART [NOVOLOG] 3 ML PEN SC SCH ×4 (07:50→21:00)
[2017-05-14] MEDS: NICOTINE (21 MG/24 HR) PATCH TRANSDERM SCH (09:00)
[2017-05-14] MEDS: METHADONE (1 MG/ML 5 ML PO UD SYG) PO SCH ×2 (09:18→21:18)
[2017-05-14 12:00] VITALS: BP 138/80; PULSE 80; RESP 18
--- NOTE | 2017-05-14 12:54 | PN ---
Date/Time of Note Date/Time of Note DATE: 05/14/17 TIME: 12:53 Assessment/Plan VTE Prophylaxis VTE Prophylaxis Intervention: ambulation Lines/Catheters IV Catheter Type (from [facility]): Peripheral IV Urinary Cath still in place: No Assessment/Plan Chief Complaint/Hosp Course 1. DM uncontrolled 2. Possible adenocarcinoma of the pancreas with lymphadenopathy 3. S/p biopsy of abdomen 4. Obesity 5. Nocturnal bradycardia 6. Hepatic lesions 7. Dyslipidemia 8. SIRS Problems: Assessment/Plan 1. Better lipids control 2. Pain control 3. Stop IV fluids 4. Start a/b Subjective 24 Hr Interval Summary Constitutional: improved, no complaints Cardiovascular: no complaints Gastrointestinal: pain Genitourinary: no complaints Musculoskeletal: no complaints Exam/Review of Systems Vital Signs Vitals Vital Signs Date Time Temp Pulse Resp B/P Pulse Ox O2 Delivery O2 Flow Rate FiO2 05/14/17 07:00 98.7 76 18 127/83 96 05/13/17 20:00 Nasal Cannula 2.0 Intake and Output 05/13/17 05/13/17 05/14/17 15:00 23:00 07:00 Intake Total 140 ml 1000 ml 500 ml Output Total 400 ml 800 ml Balance 140 ml 600 ml -300 ml Exam ENMT: nl external ears & nose Neck: supple Respiratory: clear to auscultation Gastrointestinal: surgical scars Musculoskeletal: nl extremities to inspection Results Result Diagram: 05/14/17 0455 05/14/17 0455 Results 24 hrs Laboratory Tests Test 05/13/17 13:32 05/13/17 17:57 05/13/17 18:10 05/13/17 21:26 Bedside Glucose 135 125 132 Troponin I < 0.012 Test 05/14/17 00:50 05/14/17 04:55 05/14/17 08:03 05/14/17 12:01 Troponin I < 0.012 White Blood Count 11.5 #H Red Blood Count 4.49 L Hemoglobin 13.7 L Hematocrit 40.0 L Mean Corpuscular Volume 89.1 Mean Corpuscular Hemoglobin 30.5 Mean Corpuscular Hemoglobin Concent 34.3 Red Cell Distribution Width 12.5 Platelet Count 145 Mean Platelet Volume 14.1 H Neutrophils % 75.5 Lymphocytes % 15.6 Monocytes % 7.1 Eosinophils % 1.1 Basophils % 0.3 Nucleated Red Blood Cells % 0.0 Neutrophils # 8.6 H Lymphocytes # 1.8 Monocytes # 0.8 Eosinophils # 0.1 Basophils # 0.0 Nucleated Red Blood Cells # 0.0 Sodium Level 139 Potassium Level 4.0 Chloride Level 100 Carbon Dioxide Level 25 Anion Gap 18 H Blood Urea Nitrogen 12 Creatinine 0.75 Glucose Level 132 Calcium Level 9.2 Triglycerides Level 168 H Cholesterol Level 186 LDL Cholesterol, Calculated 126 HDL Cholesterol 26 L Cholesterol/HDL Ratio 7.1 Bedside Glucose 128 171 Medications Medications Current Medications Diagnostic Test (Pha) (Accu-Chek) 1 ea 02 XX ; Start 05/13/17 at 02:00 Ondansetron HCl (Zofran Inj) 4 mg Q4H PRN IV NAUSEA AND/OR VOMITING; Start 05/12 at 03:00 Bisacodyl (Dulcolax) 10 mg BID PRN PO CONSTIPATION; Start 05/12/17 at 03:00 Nicotine (Nicoderm 21 Mg/ 24hr) 1 patch DAILY TRANSDERM ; Start 05/12/17 at 09:00 Docusate Sodium (Colace) 100 mg BID PRN PO CONSTIPATION; Start 05/12/17 at 03:00 Acetaminophen (Tylenol Tab) 650 mg Q6H PRN PO PAIN AND OR ELEVATED TEMP Last administered on 05/12/17t 11:52; Admin Dose 650 MG; Start 05/12/17 at 03:00 Pantoprazole (Protonix Iv) 40 mg DAILY@06 IV Last administered on 05/14/17 06: 25; Admin Dose 40 MG; Start 05/12/17 at 06:00 Miscellaneous Information 1 ea NOTE XX ; Start 05/12/17 at 03:15 Glucose (Glutose) 15 gm Q15M PRN PO DECREASED GLUCOSE; Start 05/12/17 at 03:15 Glucose (Glutose) 22.5 gm Q15M PRN PO DECREASED GLUCOSE; Start 05/12/17 at 03:15 Dextrose (D50w Syringe) 25 ml Q15M PRN IV DECREASED GLUCOSE; Start 05/12/17 at 03:15 Dextrose (D50w Syringe) 50 ml Q15M PRN IV DECREASED GLUCOSE; Start 05/12/17 at 03:15 Glucagon (Glucagen) 1 mg Q15M PRN IM DECREASED GLUCOSE; Start 05/12/17 at 03:15 Glucose 15 gm 15 gm Q15M PRN BUCCAL DECREASED GLUCOSE; Start 05/12/17 at 03:15 Sodium Chloride (NS) 1,000 ml @ 10 mls/hr Q24H IV Last administered on 22:33; Admin Dose 70 MLS/HR; Start 05/12/17 at 12:00 Hydromorphone HCl (Dilaudid CALCINER OPERATOR) 0.5 MG/HR CONTINUOUS RATE ... Q4PCA IV Last administered on 05/14/17 08:07; Admin Dose 6 MG; Start 05/12/17 at 13:00 Ibuprofen (Motrin) 400 mg Q6 PO Last administered on 05/14/17 06:25; Admin Dose 400 MG; Start 05/12/17 at 13:00 Naloxone HCl (Narcan) 0.2 mg Q2M PRN IV DECREASED REPIRATORY RATE; Start at 08:00 Methadone HCl (Methadone Liq) 3 mg BID PO Last administered on 05/14/17 09:18; Admin Dose 3 MG; Start 05/13/17 at 15:49 Hydromorphone HCl (Dilaudid) 0.5 mg Q1H PRN IV SEVERE PAIN LEVEL 7-10 Last administered on 05/14/17 02:36; Admin Dose 0.5 MG; Start 05/14/17 at 02:30 ELIZABET ESPINOZA May 14, 2017 12:54
[2017-05-14] MEDS: FISH OIL 1,000 MG CAP PO SCH ×2 (13:09→21:18)
[2017-05-14] MEDS: CEFTRIAXONE 1 GM/50 ML (PMX) 50 ML IVPB SCH (13:09)
[2017-05-14] MEDS ORDERED: LINAGLIPTIN 5 MG TABLET PO SCH (14:00)
--- NOTE | 2017-05-14 14:23 | CONS ---
Date/Time of Note Date/Time of Note DATE: 05/14/17 TIME: 14:22 Assessment/Plan Assessment/Plan Chief Complaint/Hosp Course Mr. Hatfield is a pleasant 51 yo male with likely metastatic pancreatic cancer. Given these findings, pt will unfortunately not be a candidate for surgical intervention. Pt does however, have a strong family history of cancer, in particular breast cancer of her mother, sister, and aunt as well as others with thyroid disorders. Given his findings of pancreatic malignancy, pt should definitely be evaluated by genetics. Having his tumor evaluated by [facility] can definitely assist in treatment protocols. He has three children, and thus evaluation of his children may also be necessary at some point. For now I will follow along, patient and would like to follow up with me as an outpatient and I have provided them with my office information. I want to thank Dr. Pelayo for allowing me to partake in the care of this very pleasant but unfortunate man. Problems: Consultation Date/Type/Reason Admit Date/Time May 12, 2017 at 00:19 Date of Consultation: May 14, 2017 Type of Consultation: [facility] Surgery Reason for Consultation Pancreatic Body Mass Referring Provider: ANALILIA MUNOZ MD Hx of Present Illness Pt is a pleasant 51 yo male with findings of a large pancreatic body mass with multiple lesions in the liver and lungs concerning for malignancy. I have been asked to evaluate this pleasant 51 yo male from [facility] who presented with 3 months history of abdominal pain. The pain was localized to the epigastric area with radiation to the mid back. On presentation and workup he was found to have a 4.6 x 6.5 x 4.9 cm hypoenhancing mass in the pancreas body and tail, suspicious for adenocarcinoma with several small peripancreatic and gastrohepatic lymph nodes in the region of the mass as well as scattered low attenuation hepatic lesions measuring up to 3.2 cm in the right hepatic lobe suspicious for metastases. Lenoardo relates that he has been experiencing epigastric pain since January of this year. His pain was associated with occasional nausea, but no vomiting, diarrhea. No history of Jaundice, hepatitis, colitis, melena, hematemesis. His CA 19-9 on admission was 2800 and HgbA1C was 8.7 He is an active smoker 2 packs per day x >35 years. He currently drinks socially, but has a history of heavy drinking. He relates some weight loss of about 3-4 lbs. He initially self treated this with PPI's over the counter but to no avail. He then was seen at the ER in [place] where a CT scan was done which demonstrated a questionable mass vs pancreatitis. He was supposed to see a GI as an out patient but was not able to see the senior integration developer. He then presented to Dr. Munoz as an out patient where he was noted to have intractable abdominal pain. He was then admitted to [facility] for pain control and to establish a diagnosis. As stated above he had an Abdominal Pelvis CT which revealed the followin.A 4.6 x 6.5 x 4.9 cm hypoenhancing mass in the pancreas body and tail, suspicious for adenocarcinoma. The mass broadly abuts the posterior gastric body and encases the celiac and proximal splenic arteries, without evidence of arterial occlusion. The splenic vein appears completely occluded as it courses through the lesion. 2. Several small peripancreatic and gastrohepatic lymph nodes in the region of the mass. These are nonspecific but at least some of them appear suspicious for metastatic disease. 3. Scattered low attenuation hepatic lesions measuring up to 3.2 cm in the right hepatic lobe, nonspecific but suspicious for metastases. Of note, he was diagnosed with being christie-Diabetic about [address] Chest: IMPRESSION: 1. Small to moderate right and small left pleural effusions with associated bibasilar compressive atelectasis. 2. Abnormal nodularity along the right minor and major fissures, which is nonspecific, but suspicious for metastatic disease. attention on follow-up is recommended. 3. Patchy ground-glass opacity with superimposed interlobular septal thickening in the left suprahilar region and at both lung apices, left greater than right, with additional smaller areas scattered throughout both lungs. This is nonspecific and could reflect early infection. 4. Hypodense mass centered in the pancreatic body and tail, highly concerning for pancreatic adenocarcinoma. 5. Peripherally enhancing events hepatic lesions, the largest measuring 3 cm in segment 7, highly suspicious for metastatic disease. Additional sub- centimeter hypodense lesions in the liver, also suspicious for metastatic disease. these can be further characterize with MRI with [facility]. 6. Nonspecific prominent peripancreatic and gastrohepatic ligament lymph nodes , also suspicious for metastatic disease. Constitutional: improved, no complaints Eyes: no complaints ENT: no complaints Respiratory: no complaints Cardiovascular: no complaints Gastrointestinal: pain Genitourinary: no complaints Musculoskeletal: no complaints Skin: no complaints Neurologic: no complaints Psychological: no complaints Past Medical History Medical History: diabetes Past Surgical History Past Surgical Hx: no surgical history Family History Significant Family History: cancer (Mother had Breast cancer, so did his sister and maternal grandmother. There is also significant history of thyroid disease in the family. ) Social History Alcohol Use: occasionally Smoking Status: Current every day smoker (2 packs per day (>35 years)) Drug Use: none Exam/Review of Systems Vital Signs Vitals Vital Signs Date Time Temp Pulse Resp B/P Pulse Ox O2 Delivery O2 Flow Rate FiO2 05/14/17 13:15 18 05/14/17 07:00 98.7 76 127/83 96 05/13/17 20:00 Nasal Cannula 2.0 Intake and Output 05/13/17 05/13/17 05/14/17 15:00 23:00 07:00 Intake Total 140 ml 1000 ml 500 ml Output Total 400 ml 800 ml Balance 140 ml 600 ml -300 ml Exam Constitutional: alert, oriented, well developed Psych: anxiety Head: normocephalic Eyes: EOMI, nl conjunctiva ENMT: nl external ears & nose Neck: supple Respiratory: clear to auscultation, normal air movement Cardiovascular: nl pulses, regular rate and rhythm Gastrointestinal: bowel sounds (normal), non-tender, soft Musculoskeletal: nl extremities to inspection, nl gait and stance Extremities: normal pulses Neurological: LOAN TELLER II-XII intact, nl mental status, nl speech Skin: nl turgor Lymph: nl lymph nodes Results Result Diagram: 05/14/17 0455 05/14/17 0455 Results 24 hrs Laboratory Tests Test 05/13/17 17:57 05/13/17 18:10 05/13/17 21:26 05/14/17 00:50 Bedside Glucose 125 132 Troponin I < 0.012 < 0.012 Test 05/14/17 04:55 05/14/17 08:03 05/14/17 12:01 White Blood Count 11.5 #H Red Blood Count 4.49 L Hemoglobin 13.7 L Hematocrit 40.0 L Mean Corpuscular Volume 89.1 Mean Corpuscular Hemoglobin 30.5 Mean Corpuscular Hemoglobin Concent 34.3 Red Cell Distribution Width 12.5 Platelet Count 145 Mean Platelet Volume 14.1 H Neutrophils % 75.5 Lymphocytes % 15.6 Monocytes % 7.1 Eosinophils % 1.1 Basophils % 0.3 Nucleated Red Blood Cells % 0.0 Neutrophils # 8.6 H Lymphocytes # 1.8 Monocytes # 0.8 Eosinophils # 0.1 Basophils # 0.0 Nucleated Red Blood Cells # 0.0 Sodium Level 139 Potassium Level 4.0 Chloride Level 100 Carbon Dioxide Level 25 Anion Gap 18 H Blood Urea Nitrogen 12 Creatinine 0.75 Glucose Level 132 Calcium Level 9.2 Triglycerides Level 168 H Cholesterol Level 186 LDL Cholesterol, Calculated 126 HDL Cholesterol 26 L Cholesterol/HDL Ratio 7.1 Bedside Glucose 128 171 Medications Medications Current Medications Diagnostic Test (Pha) (Accu-Chek) 1 ea 02 XX ; Start 05/13/17 at 02:00 Ondansetron HCl (Zofran Inj) 4 mg Q4H PRN IV NAUSEA AND/OR VOMITING; Start 05/12 at 03:00 Bisacodyl (Dulcolax) 10 mg BID PRN PO CONSTIPATION; Start 05/12/17 at 03:00 Nicotine (Nicoderm 21 Mg/ 24hr) 1 patch DAILY TRANSDERM ; Start 05/12/17 at 09:00 Docusate Sodium (Colace) 100 mg BID PRN PO CONSTIPATION; Start 05/12/17 at 03:00 Acetaminophen (Tylenol Tab) 650 mg Q6H PRN PO PAIN AND OR ELEVATED TEMP Last administered on 05/12/17 11:52; Admin Dose 650 MG; Start 05/12/17 at 03:00 Pantoprazole (Protonix Iv) 40 mg DAILY@06 IV Last administered on 05/14/17 06: 25; Admin Dose 40 MG; Start 05/12/17 at 06:00 Miscellaneous Information 1 ea NOTE XX ; Start 05/12/17 at 03:15 Glucose (Glutose) 15 gm Q15M PRN PO DECREASED GLUCOSE; Start 05/12/17 at 03:15 Glucose (Glutose) 22.5 gm Q15M PRN PO DECREASED GLUCOSE; Start 05/12/17 at 03:15 Dextrose (D50w Syringe) 25 ml Q15M PRN IV DECREASED GLUCOSE; Start 05/12/17 at 03:15 Dextrose (D50w Syringe) 50 ml Q15M PRN IV DECREASED GLUCOSE; Start 05/12/17 at 03:15 Glucagon (Glucagen) 1 mg Q15M PRN IM DECREASED GLUCOSE; Start 05/12/17 at 03:15 Glucose 15 gm 15 gm Q15M PRN BUCCAL DECREASED GLUCOSE; Start 05/12/17 at 03:15 Sodium Chloride (NS) 1,000 ml @ 10 mls/hr Q24H IV Last administered on 22:33; Admin Dose 70 MLS/HR; Start 05/12/17 at 12:00 Hydromorphone HCl (Dilaudid LAND SURVEYING SURVEY WORKER) 0.5 MG/HR CONTINUOUS RATE ... Q4PCA IV Last administered on 05/14/17 13:00; Admin Dose 6 MG; Start 05/12/17 at 13:00 Ibuprofen (Motrin) 400 mg Q6 PO Last administered on 05/14/17 13:00; Admin Dose 400 MG; Start 05/12/17 at 13:00 Naloxone HCl (Narcan) 0.2 mg Q2M PRN IV DECREASED REPIRATORY RATE; Start at 08:00 Methadone HCl (Methadone Liq) 3 mg BID PO Last administered on 05/14/17 09:18; Admin Dose 3 MG; Start 05/13/17 at 15:49 Hydromorphone HCl (Dilaudid) 0.5 mg Q1H PRN IV SEVERE PAIN LEVEL 7-10 Last administered on 05/14/17 02:36; Admin Dose 0.5 MG; Start 05/14/17 at 02:30 Fish Oil 1000 mg 1,000 mg BID PO Last administered on 05/14/17 13:09; Admin Dose 1,000 MG; Start 05/14/17 at 13:00 Ceftriaxone Sodium (Rocephin) 50 ml @ 100 mls/hr Q24H IVPB Last administered on 05/14/17 13:09; Admin Dose 100 MLS/HR; Start 05/14/17 at 13:00 Linagliptin (Tradjenta) 5 mg DAILY PO ; Start 05/14/17 at 14:00 MIRIAM PIERSON May 14, 2017 14:22 MIRIAM PIERSON May 14, 2017 14:22
[2017-05-14 16:00] VITALS: BP 138/84; PULSE 84; RESP 18
[2017-05-14] MEDS ORDERED: MAGNESIUM HYDROXIDE 30ML CUP PO PRN (17:00)
[2017-05-14] MEDS ORDERED: DOCUSATE SODIUM 100 MG CAP PO ONE (17:00)
[2017-05-14] MEDS: SOD CHLORIDE 0.9% 1,000 ML IV SCH (17:53)
[2017-05-14 20:00] VITALS: BP 139/92; RESP 19
[2017-05-14] MEDS: DOCUSATE SODIUM 100 MG CAP PO SCH (21:18)
[2017-05-15] MEDS: ACCU-CHEK XX SCH (02:00)
[2017-05-15 05:36] LABS: ADD SCAN DIFF NO
[2017-05-15 05:42] LABS: ABNORMAL IP MESSAGE 1; BASOPHILS % 0.2 % (0.0-2.0); EOSINOPHILS # 0.1 10^3/ul (0.0-0.5); HEMOGLOBIN 13.3 g/dl (14.0-18.0); LYMPHOCYTES # 1.5 10^3/ul (0.8-2.9); LYMPHOCYTES % 11.1 % (15.0-51.0); MEAN CORPUSCULAR HEMOGLOBIN 30.2 pg (29.0-33.0); MEAN CORPUSCULAR HGB CONC 34.1 g/dl (32.0-37.0); MEAN CORPUSCULAR VOLUME 88.4 fl (82.0-101.0); MEAN PLATELET VOLUME 14.4 fl (7.4-10.4); MONOCYTE # 0.9 10^3/ul (0.3-0.9); MONOCYTES % 6.8 % (0.0-11.0); NEUTROPHIL # 10.5 10^3/ul (1.6-7.5); NEUTROPHILS % 80.5 % (39.0-77.0); PLATELET COUNT 140 10^3/UL (140-415); RED BLOOD COUNT 4.41 10^6/ul (4.70-6.10); RED CELL DISTRIBUTION WIDTH 12.7 % (11.5-14.5)
[2017-05-15] MEDS: HYDROmorphONE 0.2 MG/ML PCA IV SCH ×3 (05:45→20:14)
[2017-05-15] MEDS: SOD CHLORIDE 0.9% 1,000 ML IV SCH ×2 (06:00→12:36)
[2017-05-15] MEDS: PANTOPRAZOLE 40 MG INJ IV SCH (06:07)
[2017-05-15] MEDS: IBUPROFEN 400 MG TAB PO SCH ×3 (06:07→19:30)
[2017-05-15 06:12] LABS: CREATININE 0.72 mg/dl (0.61-1.24); POTASSIUM 3.8 mmol/L (3.5-5.1)
[2017-05-15] MEDS: INSULIN ASPART [NOVOLOG] 3 ML PEN SC SCH ×4 (08:50→21:32)
[2017-05-15] MEDS: FISH OIL 1,000 MG CAP PO SCH ×2 (08:56→21:20)
[2017-05-15] MEDS: DOCUSATE SODIUM 100 MG CAP PO SCH ×2 (08:56→21:20)
[2017-05-15] MEDS: METHADONE (1 MG/ML 5 ML PO UD SYG) PO SCH ×2 (08:57→21:21)
[2017-05-15] MEDS: NICOTINE (21 MG/24 HR) PATCH TRANSDERM SCH (08:58)
[2017-05-15] MEDS: CEFTRIAXONE 1 GM/50 ML (PMX) 50 ML IVPB SCH (12:34)
--- NOTE | 2017-05-15 12:39 | CONS ---
Date/Time of Note Date/Time of Note DATE: 05/15/17 TIME: 12:35 Assessment/Plan Assessment/Plan Chief Complaint/Hosp Course IMP: 1.Bradycardia-NL TSH/trop negative x 2, overall improved 2.HTN-labile somewhat? component of pain 3.CHF-diatoloic acute on chronic 4.pancreatic mass 5.abd pain Recc: -Continue to follow HR closely -F/U path on pancreatic BX/ongoing surgical eval -Follow volume status closely -start low dose ACEI to improve overall BP control -Pain control as you are doing Problems: Consultation Date/Type/Reason Admit Date/Time May 12, 2017 at 00:19 Initial Consult Date 05/12/17 Type of Consultation: cardiology Reason for Consultation bradycardia Referring Provider: ANALILIA GUEVARA MD Exam/Review of Systems Vital Signs Vitals Vital Signs Date Time Temp Pulse Resp B/P Pulse Ox O2 Delivery O2 Flow Rate FiO2 05/15/17 05:47 16 05/14/17 20:00 97.6 70 139/92 93 05/14/17 16:00 Nasal Cannula 2.0 Intake and Output 05/14/17 05/14/17 05/15/17 15:00 23:00 07:00 Intake Total 1910 ml 1200 ml Output Total 1200 ml 1300 ml Balance 710 ml -100 ml Exam Review of Systems: CONSTITUTIONAL: No fevers, chills. PULMONARY: No sob CARDIOVASCULAR: No chest pain/palpitations GASTROINTESTINAL: mild abd pain GENITOURINARY: No hematuria/dysuria. MUSCULOSKELETAL: No myagias/arthalgias. PSYCHIATRIC: The patient denies depression. NEUROLOGIC: No weakness Constitutional: alert Psych: no complaints Head: normocephalic ENMT: mucosa pink and moist Neck: jvd (8 cm water), supple Respiratory: clear to auscultation Cardiovascular: regular rate and rhythm Gastrointestinal: other (mild TTP), soft Musculoskeletal: muscle tone (normal) Extremities: edema (none) Neurological: other (No focal deficits) Results Result Diagram: 05/15/17 0425 05/15/17 0425 Results 24 hrs Laboratory Tests Test 05/14/17 17:45 05/14/17 21:22 05/15/17 04:25 05/15/17 08:44 Bedside Glucose 136 148 161 White Blood Count 13.0 H Red Blood Count 4.41 L Hemoglobin 13.3 L Hematocrit 39.0 L Mean Corpuscular Volume 88.4 Mean Corpuscular Hemoglobin 30.2 Mean Corpuscular Hemoglobin Concent 34.1 Red Cell Distribution Width 12.7 Platelet Count 140 Mean Platelet Volume 14.4 H Neutrophils % 80.5 H Lymphocytes % 11.1 L Monocytes % 6.8 Eosinophils % 1.0 Basophils % 0.2 Nucleated Red Blood Cells % 0.0 Neutrophils # 10.5 H Lymphocytes # 1.5 Monocytes # 0.9 Eosinophils # 0.1 Basophils # 0.0 Nucleated Red Blood Cells # 0.0 Sodium Level 138 Potassium Level 3.8 Chloride Level 97 Carbon Dioxide Level 27 Anion Gap 18 H Blood Urea Nitrogen 11 Creatinine 0.72 Glucose Level 165 Calcium Level 9.0 Medications Medications Current Medications Diagnostic Test (Pha) (Accu-Chek) 1 ea 02 XX ; Start 05/13/17 at 02:00 Ondansetron HCl (Zofran Inj) 4 mg Q4H PRN IV NAUSEA AND/OR VOMITING; Start 05/12 at 03:00 Bisacodyl (Dulcolax) 10 mg BID PRN PO CONSTIPATION; Start 05/12/17 at 03:00 Nicotine (Nicoderm 21 Mg/ 24hr) 1 patch DAILY TRANSDERM ; Start 05/12/17 at 09:00 Docusate Sodium (Colace) 100 mg BID PRN PO CONSTIPATION; Start 05/12/17 at 03:00 Acetaminophen (Tylenol Tab) 650 mg Q6H PRN PO PAIN AND OR ELEVATED TEMP Last administered on 05/12/17 11:52; Admin Dose 650 MG; Start 05/12/17 at 03:00 Pantoprazole (Protonix Iv) 40 mg DAILY@06 IV Last administered on 05/15/17 06: 07; Admin Dose 40 MG; Start 05/12/17 at 06:00 Miscellaneous Information 1 ea NOTE XX ; Start 05/12/17 at 03:15 Glucose (Glutose) 15 gm Q15M PRN PO DECREASED GLUCOSE; Start 05/12/17 at 03:15 Glucose (Glutose) 22.5 gm Q15M PRN PO DECREASED GLUCOSE; Start 05/12/17 at 03:15 Dextrose (D50w Syringe) 25 ml Q15M PRN IV DECREASED GLUCOSE; Start 05/12/17 at 03:15 Dextrose (D50w Syringe) 50 ml Q15M PRN IV DECREASED GLUCOSE; Start 05/12/17 at 03:15 Glucagon (Glucagen) 1 mg Q15M PRN IM DECREASED GLUCOSE; Start 05/12/17 at 03:15 Glucose 15 gm 15 gm Q15M PRN BUCCAL DECREASED GLUCOSE; Start 05/12/17 at 03:15 Sodium Chloride (NS) 1,000 ml @ 10 mls/hr Q24H IV Last administered on 06:00; Admin Dose 100 MLS/HR; Start 05/12/17 at 12:00 Hydromorphone HCl (Dilaudid LOGISTICS VICE PRESIDENT) 0.5 MG/HR CONTINUOUS RATE ... Q4PCA IV Last administered on 05/15/17 05:45; Admin Dose 6 MG; Start 05/12/17 at 13:00 Ibuprofen (Motrin) 400 mg Q6 PO Last administered on 05/15/17 06:07; Admin Dose 400 MG; Start 05/12/17 at 13:00 Naloxone HCl (Narcan) 0.2 mg Q2M PRN IV DECREASED REPIRATORY RATE; Start at 08:00 Methadone HCl (Methadone Liq) 3 mg BID PO Last administered on 05/15/17 08:57; Admin Dose 3 MG; Start 05/13/17 at 15:49 Hydromorphone HCl (Dilaudid) 0.5 mg Q1H PRN IV SEVERE PAIN LEVEL 7-10 Last administered on 05/14/17 02:36; Admin Dose 0.5 MG; Start 05/14/17 at 02:30 Fish Oil 1000 mg 1,000 mg BID PO Last administered on 05/15/17 08:56; Admin Dose 1,000 MG; Start 05/14/17 at 13:00 Ceftriaxone Sodium (Rocephin) 50 ml @ 100 mls/hr Q24H IVPB Last administered on 05/14/17 13:09; Admin Dose 100 MLS/HR; Start 05/14/17 at 13:00 Docusate Sodium (Colace) 200 mg BID PO Last administered on 05/15/17 08:56; Admin Dose 200 MG; Start 05/14/17 at 21:00 Magnesium Hydroxide (Milk Of Mag) 30 ml DAILY PRN PO CONSTIPATION; Start at 17:00 VASHTI KING 9, 2017 12:38
--- NOTE | 2017-05-15 14:50 | PN ---
Date/Time of Note Date/Time of Note DATE: 05/15/17 TIME: 14:49 Assessment/Plan VTE Prophylaxis VTE Prophylaxis Intervention: other Lines/Catheters IV Catheter Type (from Nrs): Peripheral IV Urinary Cath still in place: No Assessment/Plan Chief Complaint/Hosp Course PANCREATIC MASS PNEUMONIA LEUCOCYTOSIS PLAN ANTIBIOTIC PER SURGERY Problems: Subjective 24 Hr Interval Summary Respiratory: no complaints Cardiovascular: no complaints Exam/Review of Systems Vital Signs Vitals Vital Signs Date Time Temp Pulse Resp B/P Pulse Ox O2 Delivery O2 Flow Rate FiO2 05/15/17 13:55 18 05/14/17 20:00 97.6 70 139/92 93 05/14/17 16:00 Nasal Cannula 2.0 Intake and Output 05/14/17 05/14/17 05/15/17 15:00 23:00 07:00 Intake Total 1910 ml 1200 ml Output Total 1200 ml 1300 ml Balance 710 ml -100 ml Exam Neck: supple Respiratory: diminished breath sounds Cardiovascular: regular rate and rhythm Gastrointestinal: bowel sounds (+), soft Musculoskeletal: nl extremities to inspection Results Result Diagram: 05/15/17 0425 05/15/17 0425 Results 24 hrs Laboratory Tests Test 05/14/17 17:45 05/14/17 21:22 05/15/17 04:25 05/15/17 08:44 Bedside Glucose 136 148 161 White Blood Count 13.0 H Red Blood Count 4.41 L Hemoglobin 13.3 L Hematocrit 39.0 L Mean Corpuscular Volume 88.4 Mean Corpuscular Hemoglobin 30.2 Mean Corpuscular Hemoglobin Concent 34.1 Red Cell Distribution Width 12.7 Platelet Count 140 Mean Platelet Volume 14.4 H Neutrophils % 80.5 H Lymphocytes % 11.1 L Monocytes % 6.8 Eosinophils % 1.0 Basophils % 0.2 Nucleated Red Blood Cells % 0.0 Neutrophils # 10.5 H Lymphocytes # 1.5 Monocytes # 0.9 Eosinophils # 0.1 Basophils # 0.0 Nucleated Red Blood Cells # 0.0 Sodium Level 138 Potassium Level 3.8 Chloride Level 97 Carbon Dioxide Level 27 Anion Gap 18 H Blood Urea Nitrogen 11 Creatinine 0.72 Glucose Level 165 Calcium Level 9.0 Test 05/15/17 13:05 Bedside Glucose 129 Medications Medications Current Medications Diagnostic Test (Pha) (Accu-Chek) 1 ea 02 XX ; Start 05/13/17 at 02:00 Ondansetron HCl (Zofran Inj) 4 mg Q4H PRN IV NAUSEA AND/OR VOMITING; Start 05/12 at 03:00 Bisacodyl (Dulcolax) 10 mg BID PRN PO CONSTIPATION; Start 05/12/17 at 03:00 Nicotine (Nicoderm 21 Mg/ 24hr) 1 patch DAILY TRANSDERM ; Start 05/12/17 at 09:00 Docusate Sodium (Colace) 100 mg BID PRN PO CONSTIPATION; Start 05/12/17 at 03:00 Acetaminophen (Tylenol Tab) 650 mg Q6H PRN PO PAIN AND OR ELEVATED TEMP Last administered on 05/12/17 11:52; Admin Dose 650 MG; Start 05/12/17 at 03:00 Pantoprazole (Protonix Iv) 40 mg DAILY@06 IV Last administered on 05/15/17 06: 07; Admin Dose 40 MG; Start 05/12/17 at 06:00 Miscellaneous Information 1 ea NOTE XX ; Start 05/12/17 at 03:15 Glucose (Glutose) 15 gm Q15M PRN PO DECREASED GLUCOSE; Start 05/12/17 at 03:15 Glucose (Glutose) 22.5 gm Q15M PRN PO DECREASED GLUCOSE; Start 05/12/17 at 03:15 Dextrose (D50w Syringe) 25 ml Q15M PRN IV DECREASED GLUCOSE; Start 05/12/17 at 03:15 Dextrose (D50w Syringe) 50 ml Q15M PRN IV DECREASED GLUCOSE; Start 05/12/17 at 03:15 Glucagon (Glucagen) 1 mg Q15M PRN IM DECREASED GLUCOSE; Start 05/12/17 at 03:15 Glucose 15 gm 15 gm Q15M PRN BUCCAL DECREASED GLUCOSE; Start 05/12/17 at 03:15 Sodium Chloride (NS) 1,000 ml @ 10 mls/hr Q24H IV Last administered on 12:36; Admin Dose 10 MLS/HR; Start 05/12/17 at 12:00 Hydromorphone HCl (Dilaudid PROP WORKER) 0.5 MG/HR CONTINUOUS RATE ... Q4PCA IV Last administered on 05/15/17 13:49; Admin Dose 6 MG; Start 05/12/17 at 13:00 Ibuprofen (Motrin) 400 mg Q6 PO Last administered on 05/15/17 12:34; Admin Dose 400 MG; Start 05/12/17 at 13:00 Naloxone HCl (Narcan) 0.2 mg Q2M PRN IV DECREASED REPIRATORY RATE; Start at 08:00 Methadone HCl (Methadone Liq) 3 mg BID PO Last administered on 05/15/17 08:57; Admin Dose 3 MG; Start 05/13/17 at 15:49 Hydromorphone HCl (Dilaudid) 0.5 mg Q1H PRN IV SEVERE PAIN LEVEL 7-10 Last administered on 05/14/17 02:36; Admin Dose 0.5 MG; Start 05/14/17 at 02:30 Fish Oil 1000 mg 1,000 mg BID PO Last administered on 05/15/17 08:56; Admin Dose 1,000 MG; Start 05/14/17 at 13:00 Ceftriaxone Sodium (Rocephin) 50 ml @ 100 mls/hr Q24H IVPB Last administered on 05/15/17 12:34; Admin Dose 100 MLS/HR; Start 05/14/17 at 13:00 Docusate Sodium (Colace) 200 mg BID PO Last administered on 05/15/17 08:56; Admin Dose 200 MG; Start 05/14/17 at 21:00 Magnesium Hydroxide (Milk Of Mag) 30 ml DAILY PRN PO CONSTIPATION; Start at 17:00 Benazepril HCl (Lotensin) 10 mg BID PO ; Start 05/15/17 at 21:00 ENRIQUE LOPEZ MD May 15, 2017 14:50
[2017-05-15 19:18] VITALS: BP 139/87; RESP 18
[2017-05-15] MEDS: BENAZEPRIL 10 MG TAB PO SCH (21:21)
[2017-05-15] MEDS: BISACODYL (EC) 5 MG TAB PO PRN (21:21)
[2017-05-16] MEDS: IBUPROFEN 400 MG TAB PO SCH ×4 (00:49→17:24)
[2017-05-16] MEDS: ACCU-CHEK XX SCH (02:34)
[2017-05-16] MEDS: HYDROmorphONE 0.2 MG/ML PCA IV SCH ×3 (03:17→17:05)
[2017-05-16 05:05] LABS: ADD SCAN DIFF NO
[2017-05-16 05:12] LABS: ABNORMAL IP MESSAGE 1; BASOPHILS % 0.3 % (0.0-2.0); EOSINOPHILS # 0.2 10^3/ul (0.0-0.5); EOSINOPHILS % 1.5 % (0.0-7.0); HEMATOCRIT 38.4 % (42.0-52.0); HEMOGLOBIN 12.9 g/dl (14.0-18.0); LYMPHOCYTES # 1.9 10^3/ul (0.8-2.9); LYMPHOCYTES % 13.6 % (15.0-51.0); MEAN CORPUSCULAR HEMOGLOBIN 30.1 pg (29.0-33.0); MEAN CORPUSCULAR HGB CONC 33.6 g/dl (32.0-37.0); MEAN CORPUSCULAR VOLUME 89.5 fl (82.0-101.0); MEAN PLATELET VOLUME 14.2 fl (7.4-10.4); MONOCYTES % 7.2 % (0.0-11.0); NEUTROPHIL # 10.4 10^3/ul (1.6-7.5); NEUTROPHILS % 76.9 % (39.0-77.0); PLATELET COUNT 133 10^3/UL (140-415); RED BLOOD COUNT 4.29 10^6/ul (4.70-6.10); RED CELL DISTRIBUTION WIDTH 12.9 % (11.5-14.5); WHITE BLOOD COUNT 13.6 10^3/ul (4.8-10.8)
[2017-05-16 05:36] LABS: ALBUMIN 3.7 g/dl (3.3-4.9); ALBUMIN/GLOBULIN RATIO 1.48; BILIRUBIN,INDIRECT 0.2 mg/dl (0-1.1); BILIRUBIN,TOTAL 0.2 mg/dl (0.2-1.3); CALCIUM 8.8 mg/dl (8.4-10.2); CREATININE 0.68 mg/dl (0.61-1.24); POTASSIUM 3.6 mmol/L (3.5-5.1); TOTAL PROTEIN 6.2 g/dl (6.1-8.1)
[2017-05-16] MEDS: PANTOPRAZOLE 40 MG INJ IV SCH (06:13)
[2017-05-16] MEDS: SOD CHLORIDE 0.9% 1,000 ML IV SCH (06:54)
[2017-05-16] MEDS: INSULIN ASPART [NOVOLOG] 3 ML PEN SC SCH ×4 (08:17→21:00)
[2017-05-16] MEDS: NICOTINE (21 MG/24 HR) PATCH TRANSDERM SCH (09:00)
[2017-05-16 09:04] VITALS: BP 131/78; RESP 20
[2017-05-16] MEDS: METHADONE (1 MG/ML 5 ML PO UD SYG) PO SCH ×2 (09:09→21:03)
[2017-05-16] MEDS: FISH OIL 1,000 MG CAP PO SCH ×2 (09:09→21:02)
[2017-05-16] MEDS: DOCUSATE SODIUM 100 MG CAP PO SCH ×2 (09:10→21:00)
[2017-05-16] MEDS: BENAZEPRIL 10 MG TAB PO SCH ×2 (09:11→21:02)
[2017-05-16] MEDS: BISACODYL (EC) 5 MG TAB PO PRN (09:17)
[2017-05-16] MEDS ORDERED: BISACODYL 10 MG SUPP PR PRN (12:00)
[2017-05-16] MEDS: CEFTRIAXONE 1 GM/50 ML (PMX) 50 ML IVPB SCH (12:32)
[2017-05-16 14:17] VITALS: Ht 193 cm; Wt 111.5 kg
--- NOTE | 2017-05-16 14:35 | CONS ---
Date/Time of Note Date/Time of Note DATE: 05/16/17 TIME: 14:31 Assessment/Plan Assessment/Plan Chief Complaint/Hosp Course 51 yo male with a 4.6 x 6.5 x 4.9 cm hypoenhancing mass in the pancreas body and tail, suspicious for adenocarcinoma with several small peripancreatic and gastrohepatic lymph nodes in the region of the mass as well as scattered low attenuation hepatic lesions measuring up to 3.2 cm in the right hepatic lobe suspicious for metastases. CA 19-9 elevated at 2800 which is also very concerning for pancreatic adenocarcinoma. Preliminary path consistent with pancreatic ca, Extensive family discussion was had with patient , and son regarding the poor prognosis of pancreatic ca. I did discuss that chemotherapy could help to alleviate some pain and control the disease. they understand the risks and benefits of chemotherapy and would like to start chemotherapy in the hospital -port a cath ordered -Folfirinox ordered. to start tomorrow. orders sent to pharmacy -will consult palliative care to assist with pain management. pt is currently on very high doses of dilaudid LENS COATER. will need to transition to oral medications so he can go home later this week Problems: Consultation Date/Type/Reason Admit Date/Time May 12, 2017 at 00:19 Initial Consult Date 05/12/17 Type of Consultation: hematology/oncology Reason for Consultation pancreatic ca Referring Provider: ANALILIA GUEVARA MD 24 HR Interval Summary Free Text/Dictation preliminary path consistent with adenocarcinoma Exam/Review of Systems Vital Signs Vitals Vital Signs Date Time Temp Pulse Resp B/P Pulse Ox O2 Delivery O2 Flow Rate FiO2 05/16/17 09:04 98.3 77 20 131/78 99 05/14/17 16:00 Nasal Cannula 2.0 Intake and Output 05/15/17 05/15/17 05/16/17 15:00 23:00 07:00 Intake Total 550 ml 1470 ml 920 ml Balance 550 ml 1470 ml 920 ml Exam Constitutional: alert, oriented Psych: anxiety, no complaints Head: normocephalic Eyes: nl conjunctiva ENMT: nl external ears & nose Neck: non-tender, supple Respiratory: clear to auscultation, normal air movement Cardiovascular: regular rate and rhythm Gastrointestinal: soft Musculoskeletal: nl extremities to inspection, nl gait and stance Extremities: normal pulses Results Result Diagram: 05/16/17 0415 05/16/17 0415 Results 24 hrs Laboratory Tests Test 05/15/17 18:07 05/15/17 21:29 05/16/17 02:17 05/16/17 04:15 Bedside Glucose 118 184 176 White Blood Count 13.6 H Red Blood Count 4.29 L Hemoglobin 12.9 L Hematocrit 38.4 L Mean Corpuscular Volume 89.5 Mean Corpuscular Hemoglobin 30.1 Mean Corpuscular Hemoglobin Concent 33.6 Red Cell Distribution Width 12.9 Platelet Count 133 L Mean Platelet Volume 14.2 H Neutrophils % 76.9 Lymphocytes % 13.6 L Monocytes % 7.2 Eosinophils % 1.5 Basophils % 0.3 Nucleated Red Blood Cells % 0.0 Neutrophils # 10.4 H Lymphocytes # 1.9 Monocytes # 1.0 H Eosinophils # 0.2 Basophils # 0.0 Nucleated Red Blood Cells # 0.0 Sodium Level 138 Potassium Level 3.6 Chloride Level 98 Carbon Dioxide Level 28 Anion Gap 16 Blood Urea Nitrogen 12 Creatinine 0.68 Glucose Level 153 Calcium Level 8.8 Total Bilirubin 0.2 Direct Bilirubin 0.00 Indirect Bilirubin 0.2 Aspartate Amino Transf (AST/SGOT) 26 Alanine Aminotransferase (ALT/SGPT) 41 Alkaline Phosphatase 121 Total Protein 6.2 Albumin 3.7 Globulin 2.50 Albumin/Globulin Ratio 1.48 Test 05/16/17 07:29 05/16/17 12:29 Bedside Glucose 147 180 Medications Medications Current Medications Diagnostic Test (Pha) (Accu-Chek) 1 ea 02 XX Last administered on 05/16/17 02: 34; Admin Dose 1 EA; Start 05/13/17 at 02:00 Ondansetron HCl (Zofran Inj) 4 mg Q4H PRN IV NAUSEA AND/OR VOMITING; Start 05/12 at 03:00 Bisacodyl (Dulcolax) 10 mg BID PRN PO CONSTIPATION Last administered on 09:17; Admin Dose 10 MG; Start 05/12/17 at 03:00 Nicotine (Nicoderm 21 Mg/ 24hr) 1 patch DAILY TRANSDERM ; Start 05/12/17 at 09:00 Docusate Sodium (Colace) 100 mg BID PRN PO CONSTIPATION; Start 05/12/17 at 03:00 Acetaminophen (Tylenol Tab) 650 mg Q6H PRN PO PAIN AND OR ELEVATED TEMP Last administered on 05/12/17 11:52; Admin Dose 650 MG; Start 05/12/17 at 03:00 Miscellaneous Information 1 ea NOTE XX ; Start 05/12/17 at 03:15 Glucose (Glutose) 15 gm Q15M PRN PO DECREASED GLUCOSE; Start 05/12/17 at 03:15 Glucose (Glutose) 22.5 gm Q15M PRN PO DECREASED GLUCOSE; Start 05/12/17 at 03:15 Dextrose (D50w Syringe) 25 ml Q15M PRN IV DECREASED GLUCOSE; Start 05/12/17 at 03:15 Dextrose (D50w Syringe) 50 ml Q15M PRN IV DECREASED GLUCOSE; Start 05/12/17 at 03:15 Glucagon (Glucagen) 1 mg Q15M PRN IM DECREASED GLUCOSE; Start 05/12/17 at 03:15 Glucose 15 gm 15 gm Q15M PRN BUCCAL DECREASED GLUCOSE; Start 05/12/17 at 03:15 Sodium Chloride (NS) 1,000 ml @ 10 mls/hr Q24H IV Last administered on 12:36; Admin Dose 10 MLS/HR; Start 05/12/17 at 12:00 Hydromorphone HCl (Dilaudid LENS COATER) 0.5 MG/HR CONTINUOUS RATE ... Q4PCA IV Last administered on 05/16/17 09:28; Admin Dose 6 MG; Start 05/12/17 at 13:00 Ibuprofen (Motrin) 400 mg Q6 PO Last administered on 05/16/17 12:32; Admin Dose 400 MG; Start 05/12/17 at 13:00 Naloxone HCl (Narcan) 0.2 mg Q2M PRN IV DECREASED REPIRATORY RATE; Start at 08:00 Methadone HCl (Methadone Liq) 3 mg BID PO Last administered on 05/16/17 09:09 ; Admin Dose 3 MG; Start 05/13/17 at 15:49 Hydromorphone HCl (Dilaudid) 0.5 mg Q1H PRN IV SEVERE PAIN LEVEL 7-10 Last administered on 05/14/17 02:36; Admin Dose 0.5 MG; Start 05/14/17 at 02:30 Fish Oil 1000 mg 1,000 mg BID PO Last administered on 05/16/17 09:09; Admin Dose 1,000 MG; Start 05/14/17 at 13:00 Ceftriaxone Sodium (Rocephin) 50 ml @ 100 mls/hr Q24H IVPB Last administered on 05/16/17 12:32; Admin Dose 100 MLS/HR; Start 05/14/17 at 13:00 Docusate Sodium (Colace) 200 mg BID PO Last administered on 05/16/17 09:10; Admin Dose 200 MG; Start 05/14/17 at 21:00 Magnesium Hydroxide (Milk Of Mag) 30 ml DAILY PRN PO CONSTIPATION Last administered on 05/15/17 15:12; Admin Dose 30 ML; Start 05/14/17 at 17:00 Benazepril HCl (Lotensin) 10 mg BID PO Last administered on 05/16/17 09:11; Admin Dose 10 MG; Start 05/15/17 at 21:00 Bisacodyl (Dulcolax Supp) 10 mg DAILY PRN [place] CONSTIPATION; Start 05/16/17 at 12 :00 Pantoprazole (Protonix Tab) 40 mg DAILY@06 PO ; Start 05/17/17 at 06:00 PUJA ROMERO M.D. May 16, 2017 14:35
--- NOTE | 2017-05-16 17:50 | CONS ---
Date/Time of Note Date/Time of Note DATE: 05/16/17 TIME: 17:47 Assessment/Plan Assessment/Plan Chief Complaint/Hosp Course IMP: 1.Bradycardia-NL TSH/trop negative x 2, overall improved 2.HTN-reasonable control 3.CHF-diatoloic acute on chronic 4.pancreatic mass 5.abd pain Recc: -Continue to follow HR closely -To be started on CTX -ONC following -Follow volume status closely -Continue ACEI -Pain control as you are doing Problems: Consultation Date/Type/Reason Admit Date/Time May 12, 2017 at 00:19 Initial Consult Date 05/12/17 Type of Consultation: cardiology Reason for Consultation BRadycardia Referring Provider: ANALILIA GUEVARA MD Exam/Review of Systems Vital Signs Vitals Vital Signs Date Time Temp Pulse Resp B/P Pulse Ox O2 Delivery O2 Flow Rate FiO2 05/16/17 17:00 16 05/16/17 09:04 98.3 77 131/78 99 05/14/17 16:00 Nasal Cannula 2.0 Intake and Output 05/15/17 05/15/17 05/16/17 15:00 23:00 07:00 Intake Total 550 ml 1470 ml 920 ml Balance 550 ml 1470 ml 920 ml Exam Review of Systems: CONSTITUTIONAL: No fevers, chills. PULMONARY: No sob CARDIOVASCULAR: No chest pain/palpitations GASTROINTESTINAL: pos abd pain GENITOURINARY: No hematuria/dysuria. MUSCULOSKELETAL: No myagias/arthalgias. PSYCHIATRIC: The patient denies depression. NEUROLOGIC: No weakness Constitutional: alert Psych: no complaints Head: normocephalic ENMT: mucosa pink and moist Neck: jvd (9 cm water), supple Respiratory: clear to auscultation Cardiovascular: regular rate and rhythm Gastrointestinal: other (mild TTP), soft Musculoskeletal: muscle tone (normal) Extremities: edema (none) Neurological: other (NO focal deficits) Results Result Diagram: 05/16/17 0415 05/16/17 0415 Results 24 hrs Laboratory Tests Test 05/15/17 18:07 05/15/17 21:29 05/16/17 02:17 05/16/17 04:15 Bedside Glucose 118 184 176 White Blood Count 13.6 H Red Blood Count 4.29 L Hemoglobin 12.9 L Hematocrit 38.4 L Mean Corpuscular Volume 89.5 Mean Corpuscular Hemoglobin 30.1 Mean Corpuscular Hemoglobin Concent 33.6 Red Cell Distribution Width 12.9 Platelet Count 133 L Mean Platelet Volume 14.2 H Neutrophils % 76.9 Lymphocytes % 13.6 L Monocytes % 7.2 Eosinophils % 1.5 Basophils % 0.3 Nucleated Red Blood Cells % 0.0 Neutrophils # 10.4 H Lymphocytes # 1.9 Monocytes # 1.0 H Eosinophils # 0.2 Basophils # 0.0 Nucleated Red Blood Cells # 0.0 Sodium Level 138 Potassium Level 3.6 Chloride Level 98 Carbon Dioxide Level 28 Anion Gap 16 Blood Urea Nitrogen 12 Creatinine 0.68 Glucose Level 153 Calcium Level 8.8 Total Bilirubin 0.2 Direct Bilirubin 0.00 Indirect Bilirubin 0.2 Aspartate Amino Transf (AST/SGOT) 26 Alanine Aminotransferase (ALT/SGPT) 41 Alkaline Phosphatase 121 Total Protein 6.2 Albumin 3.7 Globulin 2.50 Albumin/Globulin Ratio 1.48 Test 05/16/17 07:29 05/16/17 12:29 05/16/17 17:17 Bedside Glucose 147 180 166 Medications Medications Current Medications Diagnostic Test (Pha) (Accu-Chek) 1 ea 02 XX Last administered on 05/16/17 02: 34; Admin Dose 1 EA; Start 05/13/17 at 02:00 Ondansetron HCl (Zofran Inj) 4 mg Q4H PRN IV NAUSEA AND/OR VOMITING; Start 05/12 at 03:00 Bisacodyl (Dulcolax) 10 mg BID PRN PO CONSTIPATION Last administered on 09:17; Admin Dose 10 MG; Start 05/12/17 at 03:00 Nicotine (Nicoderm 21 Mg/ 24hr) 1 patch DAILY TRANSDERM ; Start 05/12/17 at 09:00 Docusate Sodium (Colace) 100 mg BID PRN PO CONSTIPATION; Start 05/12/17 at 03:00 Acetaminophen (Tylenol Tab) 650 mg Q6H PRN PO PAIN AND OR ELEVATED TEMP Last administered on 05/12/17 11:52; Admin Dose 650 MG; Start 05/12/17 at 03:00 Miscellaneous Information 1 ea NOTE XX ; Start 05/12/17 at 03:15 Glucose (Glutose) 15 gm Q15M PRN PO DECREASED GLUCOSE; Start 05/12/17 at 03:15 Glucose (Glutose) 22.5 gm Q15M PRN PO DECREASED GLUCOSE; Start 05/12/17 at 03:15 Dextrose (D50w Syringe) 25 ml Q15M PRN IV DECREASED GLUCOSE; Start 05/12/17 at 03:15 Dextrose (D50w Syringe) 50 ml Q15M PRN IV DECREASED GLUCOSE; Start 05/12/17 at 03:15 Glucagon (Glucagen) 1 mg Q15M PRN IM DECREASED GLUCOSE; Start 05/12/17 at 03:15 Glucose 15 gm 15 gm Q15M PRN BUCCAL DECREASED GLUCOSE; Start 05/12/17 at 03:15 Sodium Chloride (NS) 1,000 ml @ 10 mls/hr Q24H IV Last administered on 12:36; Admin Dose 10 MLS/HR; Start 05/12/17 at 12:00 Hydromorphone HCl (Dilaudid DEPUTY COMMISSIONER) 0.5 MG/HR CONTINUOUS RATE ... Q4PCA IV Last administered on 05/16/17 17:05; Admin Dose 6 MG; Start 05/12/17 at 13:00 Ibuprofen (Motrin) 400 mg Q6 PO Last administered on 05/16/17 17:24; Admin Dose 400 MG; Start 05/12/17 at 13:00 Naloxone HCl (Narcan) 0.2 mg Q2M PRN IV DECREASED REPIRATORY RATE; Start at 08:00 Methadone HCl (Methadone Liq) 3 mg BID PO Last administered on 05/16/17 09:09 ; Admin Dose 3 MG; Start 05/13/17 at 15:49 Hydromorphone HCl (Dilaudid) 0.5 mg Q1H PRN IV SEVERE PAIN LEVEL 7-10 Last administered on 05/14/17 02:36; Admin Dose 0.5 MG; Start 05/14/17 at 02:30 Fish Oil 1000 mg 1,000 mg BID PO Last administered on 05/16/17 09:09; Admin Dose 1,000 MG; Start 05/14/17 at 13:00 Ceftriaxone Sodium (Rocephin) 50 ml @ 100 mls/hr Q24H IVPB Last administered on 05/16/17 12:32; Admin Dose 100 MLS/HR; Start 05/14/17 at 13:00 Docusate Sodium (Colace) 200 mg BID PO Last administered on 05/16/17 09:10; Admin Dose 200 MG; Start 05/14/17 at 21:00 Magnesium Hydroxide (Milk Of Mag) 30 ml DAILY PRN PO CONSTIPATION Last administered on 05/15/17 15:12; Admin Dose 30 ML; Start 05/14/17 at 17:00 Benazepril HCl (Lotensin) 10 mg BID PO Last administered on 05/16/17 09:11; Admin Dose 10 MG; Start 05/15/17 at 21:00 Bisacodyl (Dulcolax Supp) 10 mg DAILY PRN [place] CONSTIPATION Last administered on 05/16/17 17:30; Admin Dose 10 MG; Start 05/16/17 at 12:00 Pantoprazole (Protonix Tab) 40 mg DAILY@06 PO ; Start 05/17/17 at 06:00 VASHTI KING May 16, 2017 17:50
[2017-05-16 19:38] VITALS: BP 131/78; RESP 18
--- NOTE | 2017-05-16 20:53 | PN ---
Date/Time of Note Date/Time of Note DATE: 05/16/17 TIME: 20:52 Assessment/Plan VTE Prophylaxis VTE Prophylaxis Intervention: other Lines/Catheters [facility] IV Urinary Cath still in place: No Assessment/Plan Chief Complaint/Hosp Course PANCREATIC MASS PNEUMONIA LEUCOCYTOSIS PLAN ANTIBIOTIC PER SURGERY chemo soon Problems: Subjective 24 Hr Interval Summary Cardiovascular: no complaints Gastrointestinal: no complaints Exam/Review of Systems Vital Signs Vitals Vital Signs Date Time Temp Pulse Resp B/P Pulse Ox O2 Delivery O2 Flow Rate FiO2 05/16/17 19:38 97.8 75 18 131/78 93 05/14/17 16:00 Nasal Cannula 2.0 Intake and Output 05/15/17 05/15/17 05/16/17 15:00 23:00 07:00 Intake Total 550 ml 1470 ml 920 ml Balance 550 ml 1470 ml 920 ml Exam Respiratory: clear to auscultation Cardiovascular: regular rate and rhythm Gastrointestinal: soft Musculoskeletal: nl extremities to inspection Extremities: normal pulses Results Result Diagram: 05/16/17 0415 05/16/17 0415 Results 24 hrs Laboratory Tests Test 05/15/17 21:29 05/16/17 02:17 05/16/17 04:15 05/16/17 07:29 Bedside Glucose 184 176 147 White Blood Count 13.6 H Red Blood Count 4.29 L Hemoglobin 12.9 L Hematocrit 38.4 L Mean Corpuscular Volume 89.5 Mean Corpuscular Hemoglobin 30.1 Mean Corpuscular Hemoglobin Concent 33.6 Red Cell Distribution Width 12.9 Platelet Count 133 L Mean Platelet Volume 14.2 H Neutrophils % 76.9 Lymphocytes % 13.6 L Monocytes % 7.2 Eosinophils % 1.5 Basophils % 0.3 Nucleated Red Blood Cells % 0.0 Neutrophils # 10.4 H Lymphocytes # 1.9 Monocytes # 1.0 H Eosinophils # 0.2 Basophils # 0.0 Nucleated Red Blood Cells # 0.0 Sodium Level 138 Potassium Level 3.6 Chloride Level 98 Carbon Dioxide Level 28 Anion Gap 16 Blood Urea Nitrogen 12 Creatinine 0.68 Glucose Level 153 Calcium Level 8.8 Total Bilirubin 0.2 Direct Bilirubin 0.00 Indirect Bilirubin 0.2 Aspartate Amino Transf (AST/SGOT) 26 Alanine Aminotransferase (ALT/SGPT) 41 Alkaline Phosphatase 121 Total Protein 6.2 Albumin 3.7 Globulin 2.50 Albumin/Globulin Ratio 1.48 Test 05/16/17 12:29 05/16/17 17:17 Bedside Glucose 180 166 Medications Medications Current Medications Diagnostic Test (Pha) (Accu-Chek) 1 ea 02 XX Last administered on 05/16/17 02: 34; Admin Dose 1 EA; Start 05/13/17 at 02:00 Ondansetron HCl (Zofran Inj) 4 mg Q4H PRN IV NAUSEA AND/OR VOMITING; Start 05/12 at 03:00 Bisacodyl (Dulcolax) 10 mg BID PRN PO CONSTIPATION Last administered on 09:17; Admin Dose 10 MG; Start 05/12/17 at 03:00 Nicotine (Nicoderm 21 Mg/ 24hr) 1 patch DAILY TRANSDERM ; Start 05/12/17 at 09:00 Docusate Sodium (Colace) 100 mg BID PRN PO CONSTIPATION; Start 05/12/17 at 03:00 Acetaminophen (Tylenol Tab) 650 mg Q6H PRN PO PAIN AND OR ELEVATED TEMP Last administered on 05/12/17 11:52; Admin Dose 650 MG; Start 05/12/17 at 03:00 Miscellaneous Information 1 ea NOTE XX ; Start 05/12/17 at 03:15 Glucose (Glutose) 15 gm Q15M PRN PO DECREASED GLUCOSE; Start 05/12/17 at 03:15 Glucose (Glutose) 22.5 gm Q15M PRN PO DECREASED GLUCOSE; Start 05/12/17 at 03:15 Dextrose (D50w Syringe) 25 ml Q15M PRN IV DECREASED GLUCOSE; Start 05/12/17 at 03:15 Dextrose (D50w Syringe) 50 ml Q15M PRN IV DECREASED GLUCOSE; Start 05/12/17 at 03:15 Glucagon (Glucagen) 1 mg Q15M PRN IM DECREASED GLUCOSE; Start 05/12/17 at 03:15 Glucose 15 gm 15 gm Q15M PRN BUCCAL DECREASED GLUCOSE; Start 05/12/17 at 03:15 Sodium Chloride (NS) 1,000 ml @ 10 mls/hr Q24H IV Last administered on 12:36; Admin Dose 10 MLS/HR; Start 05/12/17 at 12:00 Hydromorphone HCl (Dilaudid COLLAR RUNNER) 0.5 MG/HR CONTINUOUS RATE ... Q4PCA IV Last administered on 05/16/17 17:05; Admin Dose 6 MG; Start 05/12/17 at 13:00 Ibuprofen (Motrin) 400 mg Q6 PO Last administered on 05/16/17 17:24; Admin Dose 400 MG; Start 05/12/17 at 13:00 Naloxone HCl (Narcan) 0.2 mg Q2M PRN IV DECREASED REPIRATORY RATE; Start at 08:00 Methadone HCl (Methadone Liq) 3 mg BID PO Last administered on 05/16/17 09:09 ; Admin Dose 3 MG; Start 05/13/17 at 15:49 Hydromorphone HCl (Dilaudid) 0.5 mg Q1H PRN IV SEVERE PAIN LEVEL 7-10 Last administered on 05/14/17 02:36; Admin Dose 0.5 MG; Start 05/14/17 at 02:30 Fish Oil 1000 mg 1,000 mg BID PO Last administered on 05/16/17 09:09; Admin Dose 1,000 MG; Start 05/14/17 at 13:00 Ceftriaxone Sodium (Rocephin) 50 ml @ 100 mls/hr Q24H IVPB Last administered on 05/16/17 12:32; Admin Dose 100 MLS/HR; Start 05/14/17 at 13:00 Docusate Sodium (Colace) 200 mg BID PO Last administered on 05/16/17 09:10; Admin Dose 200 MG; Start 05/14/17 at 21:00 Magnesium Hydroxide (Milk Of Mag) 30 ml DAILY PRN PO CONSTIPATION Last administered on 05/15/17 15:12; Admin Dose 30 ML; Start 05/14/17 at 17:00 Benazepril HCl (Lotensin) 10 mg BID PO Last administered on 05/16/17 09:11; Admin Dose 10 MG; Start 05/15/17 at 21:00 Bisacodyl (Dulcolax Supp) 10 mg DAILY PRN [place] CONSTIPATION Last administered on 05/16/17 17:30; Admin Dose 10 MG; Start 05/16/17 at 12:00 Pantoprazole (Protonix Tab) 40 mg DAILY@06 PO ; Start 05/17/17 at 06:00 ENRIQUE LOPEZ MD May 16, 2017 20:53
[2017-05-17] VITALS (19 sets, daily range): BP systolic 123–162; BP diastolic 64–96; PULSE 58–82; RESP 18–20
[2017-05-17] MEDS: HYDROmorphONE 0.2 MG/ML PCA IV SCH ×4 (00:44→20:23)
[2017-05-17] MEDS: ACCU-CHEK XX SCH (01:39)
[2017-05-17] MEDS: PANTOPRAZOLE (EC) 40 MG TAB PO SCH (06:00)
[2017-05-17] MEDS: IBUPROFEN 400 MG TAB PO SCH ×5 (06:00→23:28)
[2017-05-17] MEDS: SOD CHLORIDE 0.9% 1,000 ML IV SCH ×2 (07:09→18:17)
[2017-05-17] MEDS: INSULIN ASPART [NOVOLOG] 3 ML PEN SC SCH ×4 (07:50→20:27)
[2017-05-17] MEDS ORDERED: POLYMYXIN/BACITRACIN 1L IRRIG IRR SCH (08:30)
[2017-05-17] MEDS: FISH OIL 1,000 MG CAP PO SCH ×2 (09:00→20:19)
[2017-05-17] MEDS: DOCUSATE SODIUM 100 MG CAP PO SCH ×2 (09:00→20:19)
[2017-05-17] MEDS: METHADONE (1 MG/ML 5 ML PO UD SYG) PO SCH ×2 (09:27→20:20)
[2017-05-17] MEDS: NICOTINE (21 MG/24 HR) PATCH TRANSDERM SCH (09:29)
[2017-05-17] MEDS: BENAZEPRIL 10 MG TAB PO SCH ×2 (09:29→20:19)
[2017-05-17] MEDS ORDERED: HEPARIN 1000 UNITS/ML 10 ML INJ ONE (11:04)
[2017-05-17] MEDS ORDERED: LIDOCAINE 2%/EPI 30 ML INJ ONE (11:04)
[2017-05-17] MEDS ORDERED: FENTAnyl 50 MCG/ML VIAL ONE (11:36)
[2017-05-17] MEDS ORDERED: CEFAZOLIN 1 GM/50 ML (PMX) 50 ML IVPB ONE (11:36)
[2017-05-17] MEDS ORDERED: MIDAZOLAM 1 MG/ML 2 ML INJ ONE (11:36)
[2017-05-17] MEDS ORDERED: DIPHENHYDRAMINE 50 MG INJ ONE (11:36)
--- NOTE | 2017-05-17 13:11 | RADRPT ---
PROCEDURE: FLUOROSCOPIC AND ULTRASONOGRAPHIC-GUIDED PLACEMENT OF RIGHT CHEST PORT. CLINICAL INDICATION: History of pancreas cancer. Venous access for chemotherapy. TECHNIQUE: INTRAPROCEDURE MEDICATIONS: PB antibiotic solution 40 cc applied topically. 1 gram Ancef intravenous ly, intra-op. IV Versed and Fentanyl per protocol. Informed consent was obtained. The procedure, risks, benefits, complications and alternatives were explained to the patient. Risks including bleeding, infection, and pneumothorax were explained. The patient understood and was willing to proceed. A procedural pause was performed. The patient's name , date of , and procedure to be performed were verified. The central line was inserted with al l elements of maximal sterile barrier technique. All of the following were used: head covering, faci al mask, sterile gown, sterile gloves, a large sterile sheet, hand hygiene, and 2% chlorhexidine fo r cutaneous antisepsis. The right neck and anterior/superior chest wall were prepped and draped in usual sterile fashion. Limited sonography of the right neck was then performed. Noted is a patent right internal jugular ve in. Following the local injection of 1% lidocaine, the right internal jugular vein was punctured under s onographic guidance with a 20-gauge needle through which a 0.018 inch floppy tip guidewire was advan ross into the superior vena cava with fluoroscopic guidance. The tract was dilated to 5 Cymro and the wire was then replaced with a 0.035 in Amplatz guidewire. Serial dilatation was then performed and a 7 Cymro peel away sheath was introduced. A site just inferior to the clavicle in the superior anterior right chest wall was localized. One pe rcent lidocaine was used as local anesthesia. A transverse 2.5 cm incision was made utilizing a 15 b lade scalpel. Utilizing blunt dissection a subcutaneous pocket was created inferior to the incision. The cavity was flushed with approximately 40 cc of PB antibiotic solution. The catheter was tunneled underneath the skin from the newly created pocket to the puncture site in the neck. The central line catheter was pulled through the tract. The catheter was then advanced thr ough the sheath until the tip was positioned in the right atrium. The peel-away sheath was removed. The catheter was flushed and clamped. The 6.6 Cymro catheter was then connected to the Angiodynamics power port. The port was then placed into the pocket. Prior to closing the instrument and sponge count was verified and was correct. The subcutaneous tissue was closed with 3-0 Vicryl interrupted suture. The skin at the site of the pock et and in the neck was closed with 4-0 Vicryl suture in a running subcuticular technique. The port w as flushed with 1500 units of heparin in 1.5 cc utilizing a Campos needle. The needle was removed. A dressing was applied. The patient tolerated procedure well. COMPARISON: None. FINDINGS: Ultrasound images were recorded and stored in the patient's medical record. Final radiographic images demonstrate the tip of the catheter in the upper right atrium. A total of 0.2 minutes of fluoroscopy time was used. 5 images were obtained with the image intensifier. The ultrasound images demonstrate the needle entering the internal jugular vein. IMPRESSION: 1. Successful ultrasonographic and fluoroscopic guided placement of right chest power port. RPTAT: QQ .Douglas Archibald MD, MD Date Time Electronically viewed and signed by .Douglas Archibald MD, on 05/17/2017 13:11 .R/
--- NOTE | 2017-05-17 13:12 | RADRPT ---
PROCEDURE: Ultrasound guidance for placement of needle in right internal jugular vein. CLINICAL INDICATION: Venous access. TECHNIQUE: Prior to the procedure, informed consent was obtained. Risks including bleeding, infection, and pneu mothorax were explained to the patient. The patient understood and was willing to proceed. A procedu ral pause was performed. The patient's name, date of , and procedure to be performed were verif ied. The central line was inserted with all elements of maximal sterile barrier technique. All of th e following were used: head covering, facial mask, sterile gown, sterile gloves, a large sterile she et, hand hygiene, and 2% chlorhexidine for cutaneous antisepsis. The right neck and anterior/super ior chest wall was prepped and draped in usual sterile fashion. Limited sonography of the right neck was then performed. Noted is a patent right internal jugular ve in. Ultrasound images were recorded and stored in the patient's medical record. Following the local injection of Xylocaine, the right internal jugular vein was punctured under sono graphic guidance with a 20-gauge needle through which a 0.018 inch floppy tip guidewire was advanced into the superior vena cava. The patient tolerated the procedure well. The remainder of the proce dure was performed and dictated under separate cover. COMPARISON: None. FINDINGS: The ultrasound images demonstrate a patent right internal jugular vein. The subsequent images demon strate the needle entering the right internal jugular vein. IMPRESSION: 1. Ultrasound guidance for a needle placement in right internal jugular vein. RPTAT: QQ .Douglas Archibald MD, Date Time Electronically viewed and signed by .Douglas Archibald MD, on 05/17/2017 13:11 .R/
[2017-05-17] MEDS: CEFTRIAXONE 1 GM/50 ML (PMX) 50 ML IVPB SCH (13:32)
--- NOTE | 2017-05-17 14:04 | CONS ---
Date/Time of Note Date/Time of Note DATE: 05/17/17 TIME: 14:02 Assessment/Plan Assessment/Plan Chief Complaint/Hosp Course 51 yo male with a 4.6 x 6.5 x 4.9 cm hypoenhancing mass in the pancreas body and tail, suspicious for adenocarcinoma with several small peripancreatic and gastrohepatic lymph nodes in the region of the mass as well as scattered low attenuation hepatic lesions measuring up to 3.2 cm in the right hepatic lobe suspicious for metastases. CA 19-9 elevated at 2800 which is also very concerning for pancreatic adenocarcinoma. Preliminary path consistent with pancreatic ca, Extensive family discussion was had with patient , and son regarding the poor prognosis of pancreatic ca. I did discuss that chemotherapy could help to alleviate some pain and control the disease. they understand the risks and benefits of chemotherapy and would like to start chemotherapy in the hospital -port a cath ordered -Folfirinox ordered. to start this evening or tomorrow. Chemotherapy based on BSA of 2.3 -will consult palliative care to assist with pain management. 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 will need to transition to oral medications so he can go home later this week Problems: Consultation Date/Type/Reason Admit Date/Time May 12, 2017 at 00:19 Initial Consult Date 05/12/17 Type of Consultation: Hematology Reason for Consultation pancreatic cancer Referring Provider: ANALILIA GUEVARA MD 24 HR Interval Summary Free Text/Dictation pt remains on his PHP MAGENTO DEVELOPER,. port a cath was placed Exam/Review of Systems Vital Signs Vitals Vital Signs Date Time Temp Pulse Resp B/P Pulse Ox O2 Delivery O2 Flow Rate FiO2 05/17/17 08:42 98.7 77 20 147/78 99 05/17/17 03:08 Nasal Cannula 3.0 Intake and Output 05/16/17 05/16/17 05/17/17 15:00 23:00 07:00 Intake Total 750 ml 770 ml Balance 750 ml 770 ml Exam Constitutional: alert, oriented Psych: nl mood/affect, no complaints Head: normocephalic Eyes: nl conjunctiva ENMT: nl external ears & nose Neck: non-tender, supple Respiratory: clear to auscultation, normal air movement, other (port a cath in place) Cardiovascular: nl pulses, regular rate and rhythm Gastrointestinal: soft Musculoskeletal: nl extremities to inspection, nl gait and stance Results Result Diagram: 05/16/17 0415 05/16/17 0415 Results 24 hrs Laboratory Tests Test 05/16/17 17:17 05/16/17 21:06 05/17/17 08:03 05/17/17 11:10 Bedside Glucose 166 108 128 110 Medications Medications Current Medications Diagnostic Test (Pha) (Accu-Chek) 1 ea 02 XX Last administered on 05/16/17 02: 34; Admin Dose 1 EA; Start 05/13/17 at 02:00 Ondansetron HCl (Zofran Inj) 4 mg Q4H PRN IV NAUSEA AND/OR VOMITING; Start 05/12 at 03:00 Bisacodyl (Dulcolax) 10 mg BID PRN PO CONSTIPATION Last administered on 09:17; Admin Dose 10 MG; Start 05/12/17 at 03:00 Nicotine (Nicoderm 21 Mg/ 24hr) 1 patch DAILY TRANSDERM Last administered on 09:29; Admin Dose 1 PATCH; Start 05/12/17 at 09:00 Docusate Sodium (Colace) 100 mg BID PRN PO CONSTIPATION; Start 05/12/17 at 03:00 Acetaminophen (Tylenol Tab) 650 mg Q6H PRN PO PAIN AND OR ELEVATED TEMP Last administered on 05/12/17 11:52; Admin Dose 650 MG; Start 05/12/17 at 03:00 Miscellaneous Information 1 ea NOTE XX ; Start 05/12/17 at 03:15 Glucose (Glutose) 15 gm Q15M PRN PO DECREASED GLUCOSE; Start 05/12/17 at 03:15 Glucose (Glutose) 22.5 gm Q15M PRN PO DECREASED GLUCOSE; Start 05/12/17 at 03:15 Dextrose (D50w Syringe) 25 ml Q15M PRN IV DECREASED GLUCOSE; Start 05/12/17 at 03:15 Dextrose (D50w Syringe) 50 ml Q15M PRN IV DECREASED GLUCOSE; Start 05/12/17 at 03:15 Glucagon (Glucagen) 1 mg Q15M PRN IM DECREASED GLUCOSE; Start 05/12/17 at 03:15 Glucose 15 gm 15 gm Q15M PRN BUCCAL DECREASED GLUCOSE; Start 05/12/17 at 03:15 Sodium Chloride (NS) 1,000 ml @ 10 mls/hr Q24H IV Last administered on 07:09; Admin Dose 10 MLS/HR; Start 05/12/17 at 12:00 Hydromorphone HCl (Dilaudid PHP MAGENTO DEVELOPER) 0.5 MG/HR CONTINUOUS RATE ... Q4PCA IV Last administered on 05/17/17 10:52; Admin Dose 6 MG; Start 05/12/17 at 13:00 Ibuprofen (Motrin) 400 mg Q6 PO Last administered on 05/16/17 17:24; Admin Dose 400 MG; Start 05/12/17 at 13:00 Naloxone HCl (Narcan) 0.2 mg Q2M PRN IV DECREASED REPIRATORY RATE; Start at 08:00 Methadone HCl (Methadone Liq) 3 mg BID PO Last administered on 05/17/17 09:27 ; Admin Dose 3 MG; Start 05/13/17 at 15:49 Hydromorphone HCl (Dilaudid) 0.5 mg Q1H PRN IV SEVERE PAIN LEVEL 7-10 Last administered on 05/14/17 02:36; Admin Dose 0.5 MG; Start 05/14/17 at 02:30 Fish Oil 1000 mg 1,000 mg BID PO Last administered on 05/16/17 21:02; Admin Dose 1,000 MG; Start 05/14/17 at 13:00 Ceftriaxone Sodium (Rocephin) 50 ml @ 100 mls/hr Q24H IVPB Last administered on 05/17/17 13:32; Admin Dose 100 MLS/HR; Start 05/14/17 at 13:00 Docusate Sodium (Colace) 200 mg BID PO Last administered on 05/16/17 09:10; Admin Dose 200 MG; Start 05/14/17 at 21:00 Magnesium Hydroxide (Milk Of Mag) 30 ml DAILY PRN PO CONSTIPATION Last administered on 05/15/17 15:12; Admin Dose 30 ML; Start 05/14/17 at 17:00 Benazepril HCl (Lotensin) 10 mg BID PO Last administered on 05/17/17 09:29; Admin Dose 10 MG; Start 05/15/17 at 21:00 Bisacodyl (Dulcolax Supp) 10 mg DAILY PRN [place] CONSTIPATION Last administered on 05/16/17 17:30; Admin Dose 10 MG; Start 05/16/17 at 12:00 Pantoprazole (Protonix Tab) 40 mg DAILY@06 PO ; Start 05/17/17 at 06:00 PUJA ROMERO M.D. May 17, 2017 14:03
--- NOTE | 2017-05-17 17:17 | RADRPT ---
Vent Rate: 68 bpm RR Interval: 0 msec SC Interval: 114 msec QRS Duration: 94 msec QT Interval: 396 msec QTC Interval: 421 msec P-R-T [place]: 23 - 30 - 35 degrees Normal sinus rhythm Normal ECG Electronically Signed By: aLwrence Jenkins [id number]
--- NOTE | 2017-05-17 20:44 | PN ---
Date/Time of Note Date/Time of Note DATE: 05/17/17 TIME: 20:43 Assessment/Plan VTE Prophylaxis VTE Prophylaxis Intervention: other Lines/Catheters IV Catheter Type (from Nrsg): Peripheral IV Urinary Cath still in place: No Assessment/Plan Chief Complaint/Hosp Course PANCREATIC MASS metastatic ca pancrease PNEUMONIA LEUCOCYTOSIS pul edema PLAN ANTIBIOTIC PER SURGERY chemo cardio f/u Problems: Subjective 24 Hr Interval Summary Cardiovascular: other (cw pain+) Exam/Review of Systems Vital Signs Vitals Vital Signs Date Time Temp Pulse Resp B/P Pulse Ox O2 Delivery O2 Flow Rate FiO2 05/17/17 20:28 18 05/17/17 19:36 98.2 82 134/80 97 05/17/17 15:00 Nasal Cannula 2.0 Intake and Output 05/16/17 05/16/17 05/17/17 15:00 23:00 07:00 Intake Total 750 ml 770 ml Balance 750 ml 770 ml Exam Neck: supple Respiratory: diminished breath sounds Cardiovascular: regular rate and rhythm Gastrointestinal: soft Musculoskeletal: nl extremities to inspection Extremities: normal pulses Results Result Diagram: 05/16/17 0415 05/16/17 0415 Results 24 hrs Laboratory Tests Test 05/16/17 21:06 05/17/17 08:03 05/17/17 11:10 05/17/17 17:41 Bedside Glucose 108 128 110 165 Test 05/17/17 20:26 Bedside Glucose 160 Medications Medications Current Medications Diagnostic Test (Pha) (Accu-Chek) 1 ea 02 XX Last administered on 05/16/17 02: 34; Admin Dose 1 EA; Start 05/13/17 at 02:00 Ondansetron HCl (Zofran Inj) 4 mg Q4H PRN IV NAUSEA AND/OR VOMITING; Start 05/12 at 03:00 Bisacodyl (Dulcolax) 10 mg BID PRN PO CONSTIPATION Last administered on 09:17; Admin Dose 10 MG; Start 05/12/17 at 03:00 Nicotine (Nicoderm 21 Mg/ 24hr) 1 patch DAILY TRANSDERM Last administered on 09:29; Admin Dose 1 PATCH; Start 05/12/17 at 09:00 Docusate Sodium (Colace) 100 mg BID PRN PO CONSTIPATION; Start 05/12/17 at 03:00 Acetaminophen (Tylenol Tab) 650 mg Q6H PRN PO PAIN AND OR ELEVATED TEMP Last administered on 05/12/17 11:52; Admin Dose 650 MG; Start 05/12/17 at 03:00 Miscellaneous Information 1 ea NOTE XX ; Start 05/12/17 at 03:15 Glucose (Glutose) 15 gm Q15M PRN PO DECREASED GLUCOSE; Start 05/12/17 at 03:15 Glucose (Glutose) 22.5 gm Q15M PRN PO DECREASED GLUCOSE; Start 05/12/17 at 03:15 Dextrose (D50w Syringe) 25 ml Q15M PRN IV DECREASED GLUCOSE; Start 05/12/17 at 03:15 Dextrose (D50w Syringe) 50 ml Q15M PRN IV DECREASED GLUCOSE; Start 05/12/17 at 03:15 Glucagon (Glucagen) 1 mg Q15M PRN IM DECREASED GLUCOSE; Start 05/12/17 at 03:15 Glucose 15 gm 15 gm Q15M PRN BUCCAL DECREASED GLUCOSE; Start 05/12/17 at 03:15 Sodium Chloride (NS) 1,000 ml @ 10 mls/hr Q24H IV Last administered on 07:09; Admin Dose 10 MLS/HR; Start 05/12/17 at 12:00 Hydromorphone HCl (Dilaudid DRUPAL PROGRAMMER) 0.5 MG/HR CONTINUOUS RATE ... Q4PCA IV Last administered on 05/17/17 20:23; Admin Dose 6 MG; Start 05/12/17 at 13:00 Ibuprofen (Motrin) 400 mg Q6 PO Last administered on 05/17/17 18:10; Admin Dose 400 MG; Start 05/12/17 at 13:00 Naloxone HCl (Narcan) 0.2 mg Q2M PRN IV DECREASED REPIRATORY RATE; Start at 08:00 Methadone HCl (Methadone Liq) 3 mg BID PO Last administered on 05/17/17 20:20 ; Admin Dose 3 MG; Start 05/13/17 at 15:49 Hydromorphone HCl (Dilaudid) 0.5 mg Q1H PRN IV SEVERE PAIN LEVEL 7-10 Last administered on 05/14/17 02:36; Admin Dose 0.5 MG; Start 05/14/17 at 02:30 Fish Oil 1000 mg 1,000 mg BID PO Last administered on 05/17/17 20:19; Admin Dose 1,000 MG; Start 05/14/17 at 13:00 Ceftriaxone Sodium (Rocephin) 50 ml @ 100 mls/hr Q24H IVPB Last administered on 05/17/17 13:32; Admin Dose 100 MLS/HR; Start 05/14/17 at 13:00 Docusate Sodium (Colace) 200 mg BID PO Last administered on 05/17/17 20:19; Admin Dose 200 MG; Start 05/14/17 at 21:00 Magnesium Hydroxide (Milk Of Mag) 30 ml DAILY PRN PO CONSTIPATION Last administered on 05/15/17 15:12; Admin Dose 30 ML; Start 05/14/17 at 17:00 Benazepril HCl (Lotensin) 10 mg BID PO Last administered on 05/17/17 20:19; Admin Dose 10 MG; Start 05/15/17 at 21:00 Bisacodyl (Dulcolax Supp) 10 mg DAILY PRN [place] CONSTIPATION Last administered on 05/16/17 17:30; Admin Dose 10 MG; Start 05/16/17 at 12:00 Pantoprazole 40 mg 40 mg DAILY@06 PO ; Start 05/17/17 at 06:00 Sodium Chloride 1,000 ml @ 100 mls/hr Q10H IV Last administered on 05/17/17 18:17; Admin Dose 100 MLS/HR; Start 05/17/17 at 19:00 Ondansetron HCl/ Dexamethasone/ Dextrose (Zofran Inj/ Decadron/D5W) 60.5 ml @ 252 mls/hr ONCE IV ; Start 05/17/17 at 20:45; Stop 05/17/17 at 21:00 Diphenhydramine HCl 25 mg 25 mg 2045 IV ; Start 05/17/17 at 20:45; Stop at 20:46 Oxaliplatin 195 mg/Dextrose 250 ml @ 125 mls/hr 21 IV ; Start 05/17/17 at 21:00 ; Stop 05/17/17 at 22:59 Leucovorin Calcium 920 mg/ Sodium Chloride 250 ml @ 125 mls/hr 23 IV ; Start at 23:00; Stop 05/18/17 at 00:59 Irinotecan HCl 400 mg/Dextrose 270 ml @ 180 mls/hr 2330 IV ; Start 05/17/17 at 23:30; Stop 05/18/17 at 00:59 Fluorouracil 920 mg/Sodium Chloride 118.4 ml @ 473.6 mls/ hr IV IVPB ; Start at 01:00; Stop 05/18/17 at 01:14 Fluorouracil/ Sodium Chloride (Fluorouracil/NS) 550 ml @ 23.913 mls/ hr Q23H IVPB ; Start 05/18/17 at 01:15; Stop 05/19/17 at 23:14 ENRIQUE LOEPZ MD May 17, 2017 20:44
[2017-05-17] MEDS ORDERED: ONDANSETRON INJ 16 MG, DEXAMETHASONE 4 MG/ML 10 MG in DEXTROSE 5% 50 ML IV SCH (20:45)
[2017-05-17] MEDS ORDERED: DIPHENHYDRAMINE 50 MG INJ IV SCH (20:45)
[2017-05-17] MEDS ORDERED: OXALIPLATIN IV SCH (21:00)
[2017-05-17] MEDS ORDERED: DEXTROSE 5% IV SCH ×2 (21:00→23:30)
[2017-05-17] MEDS ORDERED: SOD CHLORIDE 0.9% IV SCH (23:00)
[2017-05-17] MEDS ORDERED: LEUCOVORIN CALCIUM IV SCH (23:00)
[2017-05-17] MEDS ORDERED: IRINOTECAN IV SCH (23:30)
[2017-05-18] VITALS (12 sets, daily range): BP systolic 122–143; BP diastolic 68–81; PULSE 52–72; RESP 18–20
[2017-05-18] MEDS ORDERED: SOD CHLORIDE 0.9% IVPB SCH (01:00)
[2017-05-18] MEDS ORDERED: FLUOROURACIL IVPB SCH (01:00)
[2017-05-18] MEDS: ACCU-CHEK XX SCH (02:40)
[2017-05-18] MEDS: ONDANSETRON 4 MG INJ IV PRN (03:05)
[2017-05-18] MEDS: HYDROmorphONE 0.2 MG/ML PCA IV SCH ×3 (03:34→17:32)
[2017-05-18] MEDS: FLUOROURACIL IVPB SCH (03:52)
[2017-05-18] MEDS: SOD CHLORIDE 0.9% IVPB SCH (03:52)
[2017-05-18] MEDS: IBUPROFEN 400 MG TAB PO SCH ×3 (06:00→18:08)
[2017-05-18] MEDS: PANTOPRAZOLE (EC) 40 MG TAB PO SCH (06:24)
[2017-05-18] MEDS: SOD CHLORIDE 0.9% 1,000 ML IV SCH ×4 (06:24→16:37)
[2017-05-18] MEDS: FISH OIL 1,000 MG CAP PO SCH ×2 (08:55→20:51)
[2017-05-18] MEDS: INSULIN ASPART [NOVOLOG] 3 ML PEN SC SCH ×4 (08:56→20:54)
[2017-05-18] MEDS: DOCUSATE SODIUM 100 MG CAP PO SCH ×2 (09:00→20:51)
[2017-05-18] MEDS: NICOTINE (21 MG/24 HR) PATCH TRANSDERM SCH (09:00)
[2017-05-18] MEDS: METHADONE (1 MG/ML 5 ML PO UD SYG) PO SCH ×2 (09:01→20:51)
[2017-05-18] MEDS: BENAZEPRIL 10 MG TAB PO SCH ×2 (09:02→20:48)
[2017-05-18] MEDS ORDERED: DIPHENHYDRAMINE 50 MG INJ IV PRN (09:30)
[2017-05-18] MEDS ORDERED: METHYLPREDNISOLONE 125 MG INJ IV PRN (09:30)
[2017-05-18] MEDS: CEFTRIAXONE 1 GM/50 ML (PMX) 50 ML IVPB SCH (13:13)
--- NOTE | 2017-05-18 14:32 | CONS ---
Date/Time of Note Date/Time of Note DATE: 05/18/17 TIME: 14:31 Assessment/Plan Assessment/Plan Chief Complaint/Hosp Course 51 yo male with a 4.6 x 6.5 x 4.9 cm hypoenhancing mass in the pancreas body and tail, suspicious for adenocarcinoma with several small peripancreatic and gastrohepatic lymph nodes in the region of the mass as well as scattered low attenuation hepatic lesions measuring up to 3.2 cm in the right hepatic lobe suspicious for metastases. CA 19-9 elevated at 2800 which is also very concerning for pancreatic adenocarcinoma. Preliminary path consistent with pancreatic ca, Extensive family discussion was had with patient , and son regarding the poor prognosis of pancreatic ca. I did discuss that chemotherapy could help to alleviate some pain and control the disease. they understand the risks and benefits of chemotherapy and would like to start chemotherapy in the hospital -Folfirinox ordered. continue with day 2 Chemotherapy based on BSA of 2.3 -will consult palliative care to assist with pain management. 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 will need to transition to oral medications so he can go home later this week Problems: Consultation Date/Type/Reason Admit Date/Time May 12, 2017 at 00:19 Initial Consult Date 05/12/17 Type of Consultation: Hematology Reason for Consultation pancreatic ca Referring Provider: ANALILIA GUEVARA MD 24 HR Interval Summary Free Text/Dictation pt was started on chemotherapy yesterday. states pain is under control Exam/Review of Systems Vital Signs Vitals Vital Signs Date Time Temp Pulse Resp B/P Pulse Ox O2 Delivery O2 Flow Rate FiO2 05/18/17 08:00 Simple Mask 5.0 05/18/17 07:00 97.7 68 20 124/70 94 Intake and Output 05/17/17 05/17/17 05/18/17 15:00 23:00 07:00 Intake Total 800 ml 2912.3 ml Output Total 1550 ml Balance 800 ml 1362.3 ml Exam Constitutional: alert, oriented Psych: nl mood/affect, no complaints Head: atraumatic, normocephalic Eyes: nl conjunctiva ENMT: nl external ears & nose Neck: non-tender, supple Respiratory: clear to auscultation, normal air movement Cardiovascular: nl pulses, regular rate and rhythm Gastrointestinal: soft Musculoskeletal: nl extremities to inspection, nl gait and stance Results Result Diagram: 05/16/17 0415 05/16/17 0415 Results 24 hrs Laboratory Tests Test 05/17/17 17:41 05/17/17 20:26 05/18/17 08:45 05/18/17 12:55 Bedside Glucose 165 160 195 147 Medications Medications Current Medications Diagnostic Test (Pha) (Accu-Chek) 1 ea 02 XX Last administered on 05/16/17 02: 34; Admin Dose 1 EA; Start 05/13/17 at 02:00 Ondansetron HCl (Zofran Inj) 4 mg Q4H PRN IV NAUSEA AND/OR VOMITING Last administered on 05/18/17 03:05; Admin Dose 4 MG; Start 05/12/17 at 03:00 Bisacodyl (Dulcolax) 10 mg BID PRN PO CONSTIPATION Last administered on 09:17; Admin Dose 10 MG; Start 05/12/17 at 03:00 Nicotine (Nicoderm 21 Mg/ 24hr) 1 patch DAILY TRANSDERM Last administered on 09:29; Admin Dose 1 PATCH; Start 05/12/17 at 09:00 Docusate Sodium (Colace) 100 mg BID PRN PO CONSTIPATION; Start 05/12/17 at 03:00 Acetaminophen (Tylenol Tab) 650 mg Q6H PRN PO PAIN AND OR ELEVATED TEMP Last administered on 05/12/17 11:52; Admin Dose 650 MG; Start 05/12/17 at 03:00 Miscellaneous Information 1 ea NOTE XX ; Start 05/12/17 at 03:15 Glucose (Glutose) 15 gm Q15M PRN PO DECREASED GLUCOSE; Start 05/12/17 at 03:15 Glucose (Glutose) 22.5 gm Q15M PRN PO DECREASED GLUCOSE; Start 05/12/17 at 03:15 Dextrose (D50w Syringe) 25 ml Q15M PRN IV DECREASED GLUCOSE; Start 05/12/17 at 03:15 Dextrose (D50w Syringe) 50 ml Q15M PRN IV DECREASED GLUCOSE; Start 05/12/17 at 03:15 Glucagon (Glucagen) 1 mg Q15M PRN IM DECREASED GLUCOSE; Start 05/12/17 at 03:15 Glucose 15 gm 15 gm Q15M PRN BUCCAL DECREASED GLUCOSE; Start 05/12/17 at 03:15 Sodium Chloride (NS) 1,000 ml @ 10 mls/hr Q24H IV Last administered on 07:09; Admin Dose 10 MLS/HR; Start 05/12/17 at 12:00 Hydromorphone HCl (Dilaudid PHYSICIAN EXECUTIVE) 0.5 MG/HR CONTINUOUS RATE ... Q4PCA IV Last administered on 05/18/17 11:51; Admin Dose 6 MG; Start 05/12/17 at 13:00 Ibuprofen (Motrin) 400 mg Q6 PO Last administered on 05/18/17 11:51; Admin Dose 400 MG; Start 05/12/17 at 13:00 Naloxone HCl (Narcan) 0.2 mg Q2M PRN IV DECREASED REPIRATORY RATE; Start at 08:00 Methadone HCl (Methadone Liq) 3 mg BID PO Last administered on 05/18/17 09:01 ; Admin Dose 3 MG; Start 05/13/17 at 15:49 Hydromorphone HCl (Dilaudid) 0.5 mg Q1H PRN IV SEVERE PAIN LEVEL 7-10 Last administered on 05/14/17 02:36; Admin Dose 0.5 MG; Start 05/14/17 at 02:30 Fish Oil 1000 mg 1,000 mg BID PO Last administered on 05/18/17 08:55; Admin Dose 1,000 MG; Start 05/14/17 at 13:00 Ceftriaxone Sodium (Rocephin) 50 ml @ 100 mls/hr Q24H IVPB Last administered on 05/18/17 13:13; Admin Dose 100 MLS/HR; Start 05/14/17 at 13:00 Docusate Sodium (Colace) 200 mg BID PO Last administered on 05/17/17 20:19; Admin Dose 200 MG; Start 05/14/17 at 21:00 Magnesium Hydroxide (Milk Of Mag) 30 ml DAILY PRN PO CONSTIPATION Last administered on 05/15/17 15:12; Admin Dose 30 ML; Start 05/14/17 at 17:00 Benazepril HCl (Lotensin) 10 mg BID PO Last administered on 05/18/17 09:02; Admin Dose 10 MG; Start 05/15/17 at 21:00 Bisacodyl (Dulcolax Supp) 10 mg DAILY PRN [place] CONSTIPATION Last administered on 05/16/17 17:30; Admin Dose 10 MG; Start 05/16/17 at 12:00 Pantoprazole 40 mg 40 mg DAILY@06 PO Last administered on 05/18/17 06:24; Admin Dose 40 MG; Start 05/17/17 at 06:00 Sodium Chloride 1,000 ml @ 100 mls/hr Q10H IV Last administered on 05/18/17 06:24; Admin Dose 100 MLS/HR; Start 05/17/17 at 19:00 Fluorouracil/ Sodium Chloride (Fluorouracil/NS) 550 ml @ 23.913 mls/ hr Q23H IVPB Last administered on 05/18/17 03:52; Admin Dose 23.913 MLS/HR; Start 10/23 at 01:15; Stop 05/19/17 at 23:14 Methylprednisolone Sodium Succinate (Solu-Medrol) 60 mg Q2H PRN IV ALLERGIC REACTION; Start 05/18/17 at 09:30 Diphenhydramine HCl (Benadryl) 25 mg Q2H PRN IV ALLERGIC REACTION; Start at 09:30 PUJA ROMERO M.D. May 18, 2017 14:32
--- NOTE | 2017-05-18 14:45 | CONS ---
Date/Time of Note Date/Time of Note DATE: 05/18/17 TIME: 14:42 Assessment/Plan Assessment/Plan Chief Complaint/Hosp Course IMP: 1.Bradycardia-NL TSH/trop negative x 2, overall improved 2.HTN-reasonable control 3.CHF-diatoloic acute on chronic 4.pancreatic mass 5.abd pain 6. chest pain-of onset 05/17 now improving Recc: -Continue to follow HR closely -Continue CTX/steroids -Continue abx's -ONC following -Follow volume status closely -Continue ACEI -Pain control as you are doing -check trop Q6 x 2/serial ecg/PRN SL NTG Problems: Consultation Date/Type/Reason Admit Date/Time May 12, 2017 at 00:19 Initial Consult Date 05/12/17 Type of Consultation: cardiology Reason for Consultation bradycardia/chest pain Referring Provider: ANALILIA GUEVARA MD Exam/Review of Systems Vital Signs Vitals Vital Signs Date Time Temp Pulse Resp B/P Pulse Ox O2 Delivery O2 Flow Rate FiO2 05/18/17 08:00 Simple Mask 5.0 05/18/17 07:00 97.7 68 20 124/70 94 Intake and Output 05/17/17 05/17/17 05/18/17 15:00 23:00 07:00 Intake Total 800 ml 2912.3 ml Output Total 1550 ml Balance 800 ml 1362.3 ml Exam Review of Systems: CONSTITUTIONAL: No fevers, chills. PULMONARY: No sob CARDIOVASCULAR: No chest pain/palpitations GASTROINTESTINAL: No nausea/vomiting. GENITOURINARY: No hematuria/dysuria. MUSCULOSKELETAL: No myagias/arthalgias. PSYCHIATRIC: The patient denies depression. NEUROLOGIC: No weakness Constitutional: alert Psych: no complaints Head: normocephalic ENMT: mucosa pink and moist Neck: jvd (9 cm water), supple Respiratory: diminished breath sounds (at bases/B) Cardiovascular: regular rate and rhythm Gastrointestinal: non-tender, soft Musculoskeletal: muscle tone (normal) Extremities: edema (none) Neurological: other (No focal deficts) Results Result Diagram: 05/16/17 0415 05/16/17 0415 Results 24 hrs Laboratory Tests Test 05/17/17 17:41 05/17/17 20:26 05/18/17 08:45 05/18/17 12:55 Bedside Glucose 165 160 195 147 Medications Medications Current Medications Diagnostic Test (Pha) (Accu-Chek) 1 ea 02 XX Last administered on 05/16/17 02: 34; Admin Dose 1 EA; Start 05/13/17 at 02:00 Ondansetron HCl (Zofran Inj) 4 mg Q4H PRN IV NAUSEA AND/OR VOMITING Last administered on 05/18/17 03:05; Admin Dose 4 MG; Start 05/12/17 at 03:00 Bisacodyl (Dulcolax) 10 mg BID PRN PO CONSTIPATION Last administered on 09:17; Admin Dose 10 MG; Start 05/12/17 at 03:00 Nicotine (Nicoderm 21 Mg/ 24hr) 1 patch DAILY TRANSDERM Last administered on 09:29; Admin Dose 1 PATCH; Start 05/12/17 at 09:00 Docusate Sodium (Colace) 100 mg BID PRN PO CONSTIPATION; Start 05/12/17 at 03:00 Acetaminophen (Tylenol Tab) 650 mg Q6H PRN PO PAIN AND OR ELEVATED TEMP Last administered on 05/12/17 11:52; Admin Dose 650 MG; Start 05/12/17 at 03:00 Miscellaneous Information 1 ea NOTE XX ; Start 05/12/17 at 03:15 Glucose (Glutose) 15 gm Q15M PRN PO DECREASED GLUCOSE; Start 05/12/17 at 03:15 Glucose (Glutose) 22.5 gm Q15M PRN PO DECREASED GLUCOSE; Start 05/12/17 at 03:15 Dextrose (D50w Syringe) 25 ml Q15M PRN IV DECREASED GLUCOSE; Start 05/12/17 at 03:15 Dextrose (D50w Syringe) 50 ml Q15M PRN IV DECREASED GLUCOSE; Start 05/12/17 at 03:15 Glucagon (Glucagen) 1 mg Q15M PRN IM DECREASED GLUCOSE; Start 05/12/17 at 03:15 Glucose 15 gm 15 gm Q15M PRN BUCCAL DECREASED GLUCOSE; Start 05/12/17 at 03:15 Sodium Chloride (NS) 1,000 ml @ 10 mls/hr Q24H IV Last administered on 07:09; Admin Dose 10 MLS/HR; Start 05/12/17 at 12:00 Hydromorphone HCl (Dilaudid LIQUID WASTE TREATMENT PLANT OPERATOR) 0.5 MG/HR CONTINUOUS RATE ... Q4PCA IV Last administered on 05/18/17 11:51; Admin Dose 6 MG; Start 05/12/17 at 13:00 Ibuprofen (Motrin) 400 mg Q6 PO Last administered on 05/18/17 11:51; Admin Dose 400 MG; Start 05/12/17 at 13:00 Naloxone HCl (Narcan) 0.2 mg Q2M PRN IV DECREASED REPIRATORY RATE; Start at 08:00 Methadone HCl (Methadone Liq) 3 mg BID PO Last administered on 05/18/17 09:01 ; Admin Dose 3 MG; Start 05/13/17 at 15:49 Hydromorphone HCl (Dilaudid) 0.5 mg Q1H PRN IV SEVERE PAIN LEVEL 7-10 Last administered on 05/14/17 02:36; Admin Dose 0.5 MG; Start 05/14/17 at 02:30 Fish Oil 1000 mg 1,000 mg BID PO Last administered on 05/18/17 08:55; Admin Dose 1,000 MG; Start 05/14/17 at 13:00 Ceftriaxone Sodium (Rocephin) 50 ml @ 100 mls/hr Q24H IVPB Last administered on 05/18/17 13:13; Admin Dose 100 MLS/HR; Start 05/14/17 at 13:00 Docusate Sodium (Colace) 200 mg BID PO Last administered on 05/17/17 20:19; Admin Dose 200 MG; Start 05/14/17 at 21:00 Magnesium Hydroxide (Milk Of Mag) 30 ml DAILY PRN PO CONSTIPATION Last administered on 05/15/17 15:12; Admin Dose 30 ML; Start 05/14/17 at 17:00 Benazepril HCl (Lotensin) 10 mg BID PO Last administered on 05/18/17 09:02; Admin Dose 10 MG; Start 05/15/17 at 21:00 Bisacodyl (Dulcolax Supp) 10 mg DAILY PRN OR CONSTIPATION Last administered on 05/16/17 17:30; Admin Dose 10 MG; Start 05/16/17 at 12:00 Pantoprazole 40 mg 40 mg DAILY@06 PO Last administered on 05/18/17 06:24; Admin Dose 40 MG; Start 05/17/17 at 06:00 Sodium Chloride 1,000 ml @ 100 mls/hr Q10H IV Last administered on 05/18/17 06:24; Admin Dose 100 MLS/HR; Start 05/17/17 at 19:00 Fluorouracil/ Sodium Chloride (Fluorouracil/NS) 550 ml @ 23.913 mls/ hr Q23H IVPB Last administered on 05/18/17 03:52; Admin Dose 23.913 MLS/HR; Start 10/23 at 01:15; Stop 05/19/17 at 23:14 Methylprednisolone Sodium Succinate (Solu-Medrol) 60 mg Q2H PRN IV ALLERGIC REACTION; Start 05/18/17 at 09:30 Diphenhydramine HCl (Benadryl) 25 mg Q2H PRN IV ALLERGIC REACTION; Start at 09:30 VASHTI KING May 18, 2017 14:44
[2017-05-18] MEDS ORDERED: NITROGLYCERIN (SL) 0.4 MG TAB SL PRN (15:00)
--- NOTE | 2017-05-18 20:41 | PN ---
Date/Time of Note Date/Time of Note DATE: 05/18/17 TIME: 20:40 Assessment/Plan VTE Prophylaxis VTE Prophylaxis Intervention: other Lines/Catheters IV Catheter Type (from Nrs): port-a-cath Urinary Cath still in place: No Assessment/Plan Chief Complaint/Hosp Course PANCREATIC MASS metastatic ca pancrease PNEUMONIA LEUCOCYTOSIS pul edema PLAN ANTIBIOTIC PER SURGERY chemo cardio f/u Problems: Subjective 24 Hr Interval Summary Subjective hx not possible: other (on chemo) Exam/Review of Systems Vital Signs Vitals Vital Signs Date Time Temp Pulse Resp B/P Pulse Ox O2 Delivery O2 Flow Rate FiO2 05/18/17 19:30 97.6 56 18 143/81 95 05/18/17 16:00 Nasal Cannula 3.0 Intake and Output 05/17/17 05/17/17 05/18/17 15:00 23:00 07:00 Intake Total 800 ml 2912.3 ml Output Total 1550 ml Balance 800 ml 1362.3 ml Exam Neck: supple Respiratory: clear to auscultation Cardiovascular: regular rate and rhythm Gastrointestinal: soft Musculoskeletal: nl extremities to inspection Extremities: normal pulses Results Result Diagram: 05/16/17 0415 05/16/17 0415 Results 24 hrs Laboratory Tests Test 05/18/17 08:45 05/18/17 12:55 05/18/17 17:40 05/18/17 18:15 Bedside Glucose 195 147 138 Troponin I < 0.012 Medications Medications Current Medications Diagnostic Test (Pha) (Accu-Chek) 1 ea 02 XX Last administered on 05/16/17 02: 34; Admin Dose 1 EA; Start 05/13/17 at 02:00 Ondansetron HCl (Zofran Inj) 4 mg Q4H PRN IV NAUSEA AND/OR VOMITING Last administered on 05/18/17 03:05; Admin Dose 4 MG; Start 05/12/17 at 03:00 Bisacodyl (Dulcolax) 10 mg BID PRN PO CONSTIPATION Last administered on 09:17; Admin Dose 10 MG; Start 05/12/17 at 03:00 Nicotine (Nicoderm 21 Mg/ 24hr) 1 patch DAILY TRANSDERM Last administered on 09:29; Admin Dose 1 PATCH; Start 05/12/17 at 09:00 Docusate Sodium (Colace) 100 mg BID PRN PO CONSTIPATION; Start 05/12/17 at 03:00 Acetaminophen (Tylenol Tab) 650 mg Q6H PRN PO PAIN AND OR ELEVATED TEMP Last administered on 05/12/17 11:52; Admin Dose 650 MG; Start 05/12/17 at 03:00 Miscellaneous Information 1 ea NOTE XX ; Start 05/12/17 at 03:15 Glucose (Glutose) 15 gm Q15M PRN PO DECREASED GLUCOSE; Start 05/12/17 at 03:15 Glucose (Glutose) 22.5 gm Q15M PRN PO DECREASED GLUCOSE; Start 05/12/17 at 03:15 Dextrose (D50w Syringe) 25 ml Q15M PRN IV DECREASED GLUCOSE; Start 05/12/17 at 03:15 Dextrose (D50w Syringe) 50 ml Q15M PRN IV DECREASED GLUCOSE; Start 05/12/17 at 03:15 Glucagon (Glucagen) 1 mg Q15M PRN IM DECREASED GLUCOSE; Start 05/12/17 at 03:15 Glucose 15 gm 15 gm Q15M PRN BUCCAL DECREASED GLUCOSE; Start 05/12/17 at 03:15 Sodium Chloride (NS) 1,000 ml @ 10 mls/hr Q24H IV Last administered on 07:09; Admin Dose 10 MLS/HR; Start 05/12/17 at 12:00 Hydromorphone HCl (Dilaudid PARTS COUNTER SALES PERSON) 0.5 MG/HR CONTINUOUS RATE ... Q4PCA IV Last administered on 05/18/17 17:32; Admin Dose 6 MG; Start 05/12/17 at 13:00 Ibuprofen (Motrin) 400 mg Q6 PO Last administered on 05/18/17 18:08; Admin Dose 400 MG; Start 05/12/17 at 13:00 Naloxone HCl (Narcan) 0.2 mg Q2M PRN IV DECREASED REPIRATORY RATE; Start at 08:00 Methadone HCl (Methadone Liq) 3 mg BID PO Last administered on 05/18/17 09:01 ; Admin Dose 3 MG; Start 05/13/17 at 15:49 Hydromorphone HCl (Dilaudid) 0.5 mg Q1H PRN IV SEVERE PAIN LEVEL 7-10 Last administered on 05/14/17 02:36; Admin Dose 0.5 MG; Start 05/14/17 at 02:30 Fish Oil 1000 mg 1,000 mg BID PO Last administered on 05/18/17 08:55; Admin Dose 1,000 MG; Start 05/14/17 at 13:00 Ceftriaxone Sodium (Rocephin) 50 ml @ 100 mls/hr Q24H IVPB Last administered on 05/18/17 13:13; Admin Dose 100 MLS/HR; Start 05/14/17 at 13:00 Docusate Sodium (Colace) 200 mg BID PO Last administered on 05/17/17 20:19; Admin Dose 200 MG; Start 05/14/17 at 21:00 Magnesium Hydroxide (Milk Of Mag) 30 ml DAILY PRN PO CONSTIPATION Last administered on 05/15/17 15:12; Admin Dose 30 ML; Start 05/14/17 at 17:00 Benazepril HCl (Lotensin) 10 mg BID PO Last administered on 05/18/17 09:02; Admin Dose 10 MG; Start 05/15/17 at 21:00 Bisacodyl (Dulcolax Supp) 10 mg DAILY PRN [place] CONSTIPATION Last administered on 05/16/17 17:30; Admin Dose 10 MG; Start 05/16/17 at 12:00 Pantoprazole 40 mg 40 mg DAILY@06 PO Last administered on 05/18/17 06:24; Admin Dose 40 MG; Start 05/17/17 at 06:00 Sodium Chloride 1,000 ml @ 100 mls/hr Q10H IV Last administered on 05/18/17 16:37; Admin Dose 100 MLS/HR; Start 05/17/17 at 19:00 Fluorouracil/ Sodium Chloride (Fluorouracil/NS) 550 ml @ 23.913 mls/ hr Q23H IVPB Last administered on 05/18/17 03:52; Admin Dose 23.913 MLS/HR; Start 10/23 at 01:15; Stop 05/19/17 at 23:14 Methylprednisolone Sodium Succinate (Solu-Medrol) 60 mg Q2H PRN IV ALLERGIC REACTION; Start 05/18/17 at 09:30 Diphenhydramine HCl (Benadryl) 25 mg Q2H PRN IV ALLERGIC REACTION; Start at 09:30 Nitroglycerin (Nitroglycerin (Sl Tab) 0.4 Mg) 1 tab Q5M PRN SL ANGINA; Start at 15:00 ENRIQUE LOPEZ MD May 18, 2017 20:41
[2017-05-19] VITALS (9 sets, daily range): BP systolic 123–142; BP diastolic 58–96; PULSE 61–68; RESP 17–20
[2017-05-19] MEDS: SOD CHLORIDE 0.9% 1,000 ML IV SCH ×4 (00:51→20:45)
[2017-05-19] MEDS: SOD CHLORIDE 0.9% IVPB SCH (01:36)
[2017-05-19] MEDS: FLUOROURACIL IVPB SCH (01:36)
[2017-05-19] MEDS: HYDROmorphONE 0.2 MG/ML PCA IV SCH ×2 (01:59→09:56)
[2017-05-19] MEDS: ACCU-CHEK XX SCH (02:00)
[2017-05-19] MEDS: PANTOPRAZOLE (EC) 40 MG TAB PO SCH (06:00)
[2017-05-19] MEDS: IBUPROFEN 400 MG TAB PO SCH ×4 (06:00→19:06)
[2017-05-19 06:17] LABS: ADD SCAN DIFF NO
[2017-05-19 06:30] LABS: ABNORMAL IP MESSAGE 1; BASOPHILS % 0.2 % (0.0-2.0); EOSINOPHILS % 0.3 % (0.0-7.0); HEMATOCRIT 40.3 % (42.0-52.0); HEMOGLOBIN 13.3 g/dl (14.0-18.0); LYMPHOCYTES # 1.8 10^3/ul (0.8-2.9); LYMPHOCYTES % 14.5 % (15.0-51.0); MEAN CORPUSCULAR HEMOGLOBIN 30.5 pg (29.0-33.0); MEAN CORPUSCULAR VOLUME 92.4 fl (82.0-101.0); MEAN PLATELET VOLUME 14.5 fl (7.4-10.4); MONOCYTE # 0.7 10^3/ul (0.3-0.9); MONOCYTES % 5.7 % (0.0-11.0); NEUTROPHIL # 9.6 10^3/ul (1.6-7.5); NEUTROPHILS % 78.7 % (39.0-77.0); PLATELET COUNT 154 10^3/UL (140-415); RED BLOOD COUNT 4.36 10^6/ul (4.70-6.10); RED CELL DISTRIBUTION WIDTH 12.4 % (11.5-14.5); WHITE BLOOD COUNT 12.3 10^3/ul (4.8-10.8)
[2017-05-19 06:44] LABS: ALBUMIN 3.7 g/dl (3.3-4.9); ALBUMIN/GLOBULIN RATIO 1.37; BILIRUBIN,INDIRECT 0.1 mg/dl (0-1.1); BILIRUBIN,TOTAL 0.1 mg/dl (0.2-1.3); CREATININE 0.67 mg/dl (0.61-1.24); POTASSIUM 4.1 mmol/L (3.5-5.1); TOTAL PROTEIN 6.4 g/dl (6.1-8.1)
[2017-05-19] MEDS: INSULIN ASPART [NOVOLOG] 3 ML PEN SC SCH ×4 (08:30→20:52)
[2017-05-19] MEDS: METHADONE (1 MG/ML 5 ML PO UD SYG) PO SCH ×2 (09:00→20:34)
[2017-05-19] MEDS: NICOTINE (21 MG/24 HR) PATCH TRANSDERM SCH (09:00)
[2017-05-19] MEDS: FISH OIL 1,000 MG CAP PO SCH ×2 (09:00→20:40)
[2017-05-19] MEDS: DOCUSATE SODIUM 100 MG CAP PO SCH ×2 (09:00→20:40)
[2017-05-19] MEDS: BENAZEPRIL 10 MG TAB PO SCH ×2 (09:45→20:41)
[2017-05-19] MEDS: ONDANSETRON 4 MG INJ IV PRN ×3 (09:45→19:06)
--- NOTE | 2017-05-19 12:58 | HP ---
HISTORY AND PHYSICAL DATE OF ADMISSION: 05/12/2017 HISTORY OF PRESENT ILLNESS: Mr. Rob Hatfield is a 51-year- old male who presented with abdominal pain for the last few months. The patient had seen his primary care doctor, had referral to GI and a surgeon, who saw Dr. Rosas and sent him to the ER for repeat scan. The patient's blood pressure 157/88, potassium 3.8 and BUN 10, creatinine 0.79. The patient had hematocrit 40.5. Sodium 136, potassium 4.1. The patient's hemoglobin A1c 8.7. The patient had chest x-ray, shows mild failure versus mild bilateral lung base pneumonia, left greater than right. The patient had a CT of the abdomen, shows 4.6 x 6.5 cm x 4.9 cm hypo-enhancing mass in the pancreas body and the tail, suspicious for adenocarcinoma, the mass broadly abuts the posterior gastric body and encases the celiac and splenic arteries, without evidence of arterial occlusion. The splenic vein appears completely occluded as it courses to the left lesion. Several small peripancreatic and gastrohepatic lymph nodes in the region of the mass. for metastatic disease. Scattered low attenuation hepatic lesions measuring up to 3.2 cm in the right hepatic lobe. Nonspecific 1 cm low attenuation lesion in the posterior spleen. The patient had moderate to severe bilateral narrowing. PAST MEDICAL HISTORY: Positive for diabetes. ALLERGIES: NEGATIVE. FAMILY HISTORY: Positive for breast CA. SOCIAL HISTORY: Positive for smoking 2 packs a day. MEDICATIONS AT HOME: Does not list any of his medications. REVIEW OF SYSTEMS: HEENT: Normal. RESPIRATORY: Unremarkable for cough, shortness of breath or fever. CARDIOVASCULAR: No chest pain or palpitations. GASTROINTESTINAL: Abdominal pain. NEG melena. EXTREMITIES: Unremarkable. CENTRAL NERVOUS SYSTEM: Unremarkable. GENITOURINARY: Unremarkable. MUSCULOSKELETAL: Unremarkable. PHYSICAL EXAMINATION: GENERAL: The patient is awake and alert. VITAL SIGNS: Blood pressure 137/89. HEENT: Head is atraumatic, normocephalic. Pupils equal and reactive to light. NECK: Supple. No JVD. LUNGS: Clear. CARDIAC: S1, S2 is normal. ABDOMEN: Soft. Bowel sounds positive. Tenderness in the epigastric area. EXTREMITIES: Clubbing, cyanosis or edema. NEUROLOGIC: The patient is awake and alert, with no focal deficits. LABORATORY DATA: Hematocrit 40.5. IMPRESSION: 1. The patient has a pancreatic mass. 2. Rule out metastatic cancer. 3. Diabetes mellitus history. PLAN: Give this patient gentle IV fluids, oncology consultation, cancer markers. CT of the chest will be obtained as well as orders were done. Dictated By: Chele Bojorquez MD /fnt/ec /Document#: [id number] Conf#:[id number] DID#: [id number] MTDD
--- NOTE | 2017-05-19 13:04 | PN ---
DATE: FOLLOW UP: This follow up is from general surgical team including Dr. Munoz and . The patient is a 51-year- old gentleman was admitted because of severe continuous epigastric pain and back pain, and was found to have a mass in the body in the tail of the pancreas with elevated CA 19-9 of 20,800. A percutaneous biopsy was taken and today the preliminary report is back as a moderately differentiated adenocarcinoma, with the original site not being identified yet. They are doing color staining, which will take a few days for the final report. SUBJECTIVE: Pain is under control with high doses of Dilaudid, GLASS LAMINATING OPERATOR. VITAL SIGNS: Temperature 98.3, heart rate 77, respirations 20, blood pressure 131/38, saturation 99 percent on room air. LABORATORY DATA: WBC 15,600 with 76 percent segmented, hemoglobin 12.9, hematocrit 38.4. Chemistry, sodium, potassium, BUN, creatinine within normal limits. ASSESSMENT AND PLAN: A 51-year-old gentleman with tumor on the pancreas with possible metastasis to the liver and even lung. The preliminary report of the percutaneous needle biopsy is adenocarcinoma moderately differentiated. Final report which showed after colon staining done. Meanwhile, the oncologist, has seen the patient. She has ordered Port-A-Cath and she is planning to start chemotherapy for the patient after having had discussion with the family, and the patient wants to start chemotherapy as soon as possible in the hospital. We are planning to have help of the pain management so that we can control the patient's pain with oral medication. In preparation we are sending the patient home by the end of this week. From a general surgery point of view it appears that there is not much that can be done at this time. Even so will continue to follow the patient . Dictated By: Olivier Thornton MD /usha/kenia /Document#: [id number] CC: Patrick Munoz MD;*EndCC*
[2017-05-19] MEDS: CEFTRIAXONE 1 GM/50 ML (PMX) 50 ML IVPB SCH (13:34)
[2017-05-19] MEDS: HYDROmorphONE 2 MG TAB PO SCH ×2 (16:30→21:53)
--- NOTE | 2017-05-19 16:33 | RADRPT ---
Vent Rate: 59 bpm RR Interval: 0 msec CO Interval: 108 msec QRS Duration: 82 msec QT Interval: 430 msec QTC Interval: 425 msec P-R-T [place]: 26 - 34 - 40 degrees Sinus bradycardia with short CO Otherwise normal ECG Electronically Signed By: Lawrence Jenkins [id number]
[2017-05-19] MEDS: METOCLOPRAMIDE 10 MG TAB PO PRN (17:13)
--- NOTE | 2017-05-19 18:32 | CONS ---
Date/Time of Note Date/Time of Note DATE: 05/19/17 TIME: 18:29 Assessment/Plan Assessment/Plan Chief Complaint/Hosp Course 51 yo male with a 4.6 x 6.5 x 4.9 cm hypoenhancing mass in the pancreas body and tail, suspicious for adenocarcinoma with several small peripancreatic and gastrohepatic lymph nodes in the region of the mass as well as scattered low attenuation hepatic lesions measuring up to 3.2 cm in the right hepatic lobe suspicious for metastases. CA 19-9 elevated at 2800 which is also very concerning for pancreatic adenocarcinoma. Preliminary path consistent with pancreatic ca, Extensive family discussion was had with patient , and son regarding the poor prognosis of pancreatic ca. I did discuss that chemotherapy could help to alleviate some pain and control the disease. they understand the risks and benefits of chemotherapy and would like to start chemotherapy in the hospital -Folfirinox has been give. today is day 3. Chemotherapy based on BSA of 2.3 -appreciate Dr. Bojorquez's help with pain management. pt is currently on Dilaudid 6 mg q 4 hours prn pain. I can continue this as an out patient -continue Zofran 8mg q 8 hours prn nausea. Reglan 10mg q 4 hours also ordered -prescription for Zofran and Reglan written and in chart for when patient is discharged Problems: Consultation Date/Type/Reason Admit Date/Time May 12, 2017 at 00:19 Initial Consult Date 05/12/17 Type of Consultation: oncology Reason for Consultation pancreatic ca Referring Provider: ANALILIA GUEVARA MD 24 HR Interval Summary Free Text/Dictation pt is now off TOBACCO DIPPER. on Dilaudid 6 mg as needed for pain. c/o nausea Exam/Review of Systems Vital Signs Vitals Vital Signs Date Time Temp Pulse Resp B/P Pulse Ox O2 Delivery O2 Flow Rate FiO2 05/19/17 08:36 97.9 72 18 137/84 99 05/19/17 07:45 Nasal Cannula 5.0 Intake and Output 05/18/17 05/18/17 05/19/17 15:00 23:00 07:00 Intake Total 50 ml 2112.64 ml 2269.11 ml Output Total 100 ml 300 ml Balance 50 ml 2012.64 ml 1969.11 ml Exam Constitutional: alert, frail Psych: anxiety Head: normocephalic Eyes: nl conjunctiva ENMT: nl external ears & nose Neck: non-tender, supple Respiratory: clear to auscultation Cardiovascular: regular rate and rhythm Gastrointestinal: soft Musculoskeletal: nl extremities to inspection, nl gait and stance Results Result Diagram: 05/19/1752005/19/17520 Results 24 hrs Laboratory Tests Test 05/18/17 20:53 05/19/17 00:54 05/19/17 05:21 05/19/17 08:42 Bedside Glucose 164 113 Troponin I < 0.012 White Blood Count 12.3 H Red Blood Count 4.36 L Hemoglobin 13.3 L Hematocrit 40.3 L Mean Corpuscular Volume 92.4 Mean Corpuscular Hemoglobin 30.5 Mean Corpuscular Hemoglobin Concent 33.0 Red Cell Distribution Width 12.4 Platelet Count 154 Mean Platelet Volume 14.5 H Neutrophils % 78.7 H Lymphocytes % 14.5 L Monocytes % 5.7 Eosinophils % 0.3 Basophils % 0.2 Nucleated Red Blood Cells % 0.0 Neutrophils # 9.6 H Lymphocytes # 1.8 Monocytes # 0.7 Eosinophils # 0.0 Basophils # 0.0 Nucleated Red Blood Cells # 0.0 Sodium Level 131 L Potassium Level 4.1 Chloride Level 100 Carbon Dioxide Level 29 Anion Gap 6 L Blood Urea Nitrogen 22 H Creatinine 0.67 Glucose Level 116 Calcium Level 9.0 Total Bilirubin 0.1 L Direct Bilirubin 0.00 Indirect Bilirubin 0.1 Aspartate Amino Transf (AST/SGOT) 33 Alanine Aminotransferase (ALT/SGPT) 51 Alkaline Phosphatase 138 H Total Protein 6.4 Albumin 3.7 Globulin 2.70 Albumin/Globulin Ratio 1.37 Test 05/19/17 12:28 05/19/17 17:28 Bedside Glucose 107 108 Medications Medications Current Medications Diagnostic Test (Pha) (Accu-Chek) 1 ea 02 XX Last administered on 05/16/17 02: 34; Admin Dose 1 EA; Start 05/13/17 at 02:00 Ondansetron HCl (Zofran Inj) 4 mg Q4H PRN IV NAUSEA AND/OR VOMITING Last administered on 05/19/17 13:34; Admin Dose 4 MG; Start 05/12/17 at 03:00 Bisacodyl (Dulcolax) 10 mg BID PRN PO CONSTIPATION Last administered on 09:17; Admin Dose 10 MG; Start 05/12/17 at 03:00 Nicotine (Nicoderm 21 Mg/ 24hr) 1 patch DAILY TRANSDERM Last administered on 09:29; Admin Dose 1 PATCH; Start 05/12/17 at 09:00 Docusate Sodium (Colace) 100 mg BID PRN PO CONSTIPATION; Start 05/12/17 at 03:00 Acetaminophen (Tylenol Tab) 650 mg Q6H PRN PO PAIN AND OR ELEVATED TEMP Last administered on 05/12/17 11:52; Admin Dose 650 MG; Start 05/12/17 at 03:00 Miscellaneous Information 1 ea NOTE XX ; Start 05/12/17 at 03:15 Glucose (Glutose) 15 gm Q15M PRN PO DECREASED GLUCOSE; Start 05/12/17 at 03:15 Glucose (Glutose) 22.5 gm Q15M PRN PO DECREASED GLUCOSE; Start 05/12/17 at 03:15 Dextrose (D50w Syringe) 25 ml Q15M PRN IV DECREASED GLUCOSE; Start 05/12/17 at 03:15 Dextrose (D50w Syringe) 50 ml Q15M PRN IV DECREASED GLUCOSE; Start 05/12/17 at 03:15 Glucagon (Glucagen) 1 mg Q15M PRN IM DECREASED GLUCOSE; Start 05/12/17 at 03:15 Glucose 15 gm 15 gm Q15M PRN BUCCAL DECREASED GLUCOSE; Start 05/12/17 at 03:15 Sodium Chloride (NS) 1,000 ml @ 10 mls/hr Q24H IV Last administered on 07:09; Admin Dose 10 MLS/HR; Start 05/12/17 at 12:00 Hydromorphone HCl (Dilaudid TOBACCO DIPPER) 0.5 MG/HR CONTINUOUS RATE ... Q4PCA IV Last administered on 05/19/17 09:56; Admin Dose 6 MG; Start 05/12/17 at 13:00; Status Future Hold Ibuprofen (Motrin) 400 mg Q6 PO Last administered on 05/18/17 18:08; Admin Dose 400 MG; Start 05/12/17 at 13:00 Naloxone HCl (Narcan) 0.2 mg Q2M PRN IV DECREASED REPIRATORY RATE; Start at 08:00 Methadone HCl (Methadone Liq) 3 mg BID PO Last administered on 05/18/17 09:01 ; Admin Dose 3 MG; Start 05/13/17 at 15:49 Hydromorphone HCl (Dilaudid) 0.5 mg Q1H PRN IV SEVERE PAIN LEVEL 7-10 Last administered on 05/14/17 02:36; Admin Dose 0.5 MG; Start 05/14/17 at 02:30 Fish Oil 1000 mg 1,000 mg BID PO Last administered on 05/18/17 08:55; Admin Dose 1,000 MG; Start 05/14/17 at 13:00 Ceftriaxone Sodium (Rocephin) 50 ml @ 100 mls/hr Q24H IVPB Last administered on 05/19/17 13:34; Admin Dose 100 MLS/HR; Start 05/14/17 at 13:00 Docusate Sodium (Colace) 200 mg BID PO Last administered on 05/17/17 20:19; Admin Dose 200 MG; Start 05/14/17 at 21:00 Magnesium Hydroxide (Milk Of Mag) 30 ml DAILY PRN PO CONSTIPATION Last administered on 05/15/17 15:12; Admin Dose 30 ML; Start 05/14/17 at 17:00 Benazepril HCl (Lotensin) 10 mg BID PO Last administered on 05/19/17 09:45; Admin Dose 10 MG; Start 05/15/17 at 21:00 Bisacodyl (Dulcolax Supp) 10 mg DAILY PRN [place] CONSTIPATION Last administered on 05/16/17 17:30; Admin Dose 10 MG; Start 05/16/17 at 12:00 Pantoprazole 40 mg 40 mg DAILY@06 PO Last administered on 05/18/17 06:24; Admin Dose 40 MG; Start 05/17/17 at 06:00 Sodium Chloride 1,000 ml @ 100 mls/hr Q10H IV Last administered on 05/19/17 09:54; Admin Dose 100 MLS/HR; Start 05/17/17 at 19:00 Fluorouracil/ Sodium Chloride (Fluorouracil/NS) 550 ml @ 23.913 mls/ hr Q23H IVPB Last administered on 05/19/17 01:36; Admin Dose 23.913 MLS/HR; Start 10/23 at 01:15; Stop 05/19/17 at 23:14 Methylprednisolone Sodium Succinate (Solu-Medrol) 60 mg Q2H PRN IV ALLERGIC REACTION; Start 05/18/17 at 09:30 Diphenhydramine HCl (Benadryl) 25 mg Q2H PRN IV ALLERGIC REACTION; Start at 09:30 Nitroglycerin (Nitroglycerin (Sl Tab) 0.4 Mg) 1 tab Q5M PRN SL ANGINA; Start at 15:00 Hydromorphone HCl (Dilaudid) 6 mg Q6H PO Last administered on 05/19/17 16:30; Admin Dose 6 MG; Start 05/19/17 at 16:00 Metoclopramide HCl (Reglan) 10 mg Q8 PRN PO NAUSEA Last administered on 17:13; Admin Dose 10 MG; Start 05/19/17 at 16:00 PUJA ROMERO M.D. May 19, 2017 18:32
--- NOTE | 2017-05-19 18:59 | CONS ---
Date/Time of Note Date/Time of Note DATE: 05/19/17 TIME: 18:57 Assessment/Plan Assessment/Plan Chief Complaint/Hosp Course IMP: 1.Bradycardia-NL TSH/trop negative x 2, overall improved 2.HTN-reasonable control 3.CHF-diatoloic acute on chronic 4.pancreatic mass 5.abd pain 6. chest pain-of onset 05/17 now improved-negative trop x 2 after onset of pain Recc: -Continue to follow HR closely -Continue CTX/steroids -Continue abx's -ONC following -Follow volume status closely -Continue ACEI -Pain control as you are doing Problems: Consultation Date/Type/Reason Admit Date/Time May 12, 2017 at 00:19 Initial Consult Date 05/12/17 Type of Consultation: cardiology Reason for Consultation bradycardia Referring Provider: ANALILIA GUEVARA MD Exam/Review of Systems Vital Signs Vitals Vital Signs Date Time Temp Pulse Resp B/P Pulse Ox O2 Delivery O2 Flow Rate FiO2 05/19/17 08:36 97.9 72 18 137/84 99 05/19/17 07:45 Nasal Cannula 5.0 Intake and Output 05/18/17 05/18/17 05/19/17 15:00 23:00 07:00 Intake Total 50 ml 2112.64 ml 2269.11 ml Output Total 100 ml 300 ml Balance 50 ml 2012.64 ml 1969.11 ml Exam Review of Systems: CONSTITUTIONAL: No fevers, chills. PULMONARY: No sob CARDIOVASCULAR: No chest pain/palpitations GASTROINTESTINAL: No nausea/vomiting. GENITOURINARY: No hematuria/dysuria. MUSCULOSKELETAL: No myagias/arthalgias. PSYCHIATRIC: The patient denies depression. NEUROLOGIC: No weakness Constitutional: alert Psych: no complaints Head: normocephalic ENMT: mucosa pink and moist Neck: jvd (8-9 cm water), supple Respiratory: diminished breath sounds (at bases/B) Cardiovascular: regular rate and rhythm Gastrointestinal: non-tender, soft Musculoskeletal: muscle tone (normal) Extremities: edema (none) Neurological: other (No focal deficits) Results Result Diagram: 05/19/17 0521 05/19/17 0521 Results 24 hrs Laboratory Tests Test 05/18/17 20:53 05/19/17 00:54 05/19/17 05:21 05/19/17 08:42 Bedside Glucose 164 113 Troponin I < 0.012 White Blood Count 12.3 H Red Blood Count 4.36 L Hemoglobin 13.3 L Hematocrit 40.3 L Mean Corpuscular Volume 92.4 Mean Corpuscular Hemoglobin 30.5 Mean Corpuscular Hemoglobin Concent 33.0 Red Cell Distribution Width 12.4 Platelet Count 154 Mean Platelet Volume 14.5 H Neutrophils % 78.7 H Lymphocytes % 14.5 L Monocytes % 5.7 Eosinophils % 0.3 Basophils % 0.2 Nucleated Red Blood Cells % 0.0 Neutrophils # 9.6 H Lymphocytes # 1.8 Monocytes # 0.7 Eosinophils # 0.0 Basophils # 0.0 Nucleated Red Blood Cells # 0.0 Sodium Level 131 L Potassium Level 4.1 Chloride Level 100 Carbon Dioxide Level 29 Anion Gap 6 L Blood Urea Nitrogen 22 H Creatinine 0.67 Glucose Level 116 Calcium Level 9.0 Total Bilirubin 0.1 L Direct Bilirubin 0.00 Indirect Bilirubin 0.1 Aspartate Amino Transf (AST/SGOT) 33 Alanine Aminotransferase (ALT/SGPT) 51 Alkaline Phosphatase 138 H Total Protein 6.4 Albumin 3.7 Globulin 2.70 Albumin/Globulin Ratio 1.37 Test 05/19/17 12:28 05/19/17 17:28 Bedside Glucose 107 108 Medications Medications Current Medications Diagnostic Test (Pha) (Accu-Chek) 1 ea 02 XX Last administered on 05/16/17 02: 34; Admin Dose 1 EA; Start 05/13/17 at 02:00 Ondansetron HCl (Zofran Inj) 4 mg Q4H PRN IV NAUSEA AND/OR VOMITING Last administered on 05/19/17 13:34; Admin Dose 4 MG; Start 05/12/17 at 03:00 Bisacodyl (Dulcolax) 10 mg BID PRN PO CONSTIPATION Last administered on 09:17; Admin Dose 10 MG; Start 05/12/17 at 03:00 Nicotine (Nicoderm 21 Mg/ 24hr) 1 patch DAILY TRANSDERM Last administered on 09:29; Admin Dose 1 PATCH; Start 05/12/17 at 09:00 Docusate Sodium (Colace) 100 mg BID PRN PO CONSTIPATION; Start 05/12/17 at 03:00 Acetaminophen (Tylenol Tab) 650 mg Q6H PRN PO PAIN AND OR ELEVATED TEMP Last administered on 05/12/17 11:52; Admin Dose 650 MG; Start 05/12/17 at 03:00 Miscellaneous Information 1 ea NOTE XX ; Start 05/12/17 at 03:15 Glucose (Glutose) 15 gm Q15M PRN PO DECREASED GLUCOSE; Start 05/12/17 at 03:15 Glucose (Glutose) 22.5 gm Q15M PRN PO DECREASED GLUCOSE; Start 05/12/17 at 03:15 Dextrose (D50w Syringe) 25 ml Q15M PRN IV DECREASED GLUCOSE; Start 05/12/17 at 03:15 Dextrose (D50w Syringe) 50 ml Q15M PRN IV DECREASED GLUCOSE; Start 05/12/17 at 03:15 Glucagon (Glucagen) 1 mg Q15M PRN IM DECREASED GLUCOSE; Start 05/12/17 at 03:15 Glucose 15 gm 15 gm Q15M PRN BUCCAL DECREASED GLUCOSE; Start 05/12/17 at 03:15 Sodium Chloride (NS) 1,000 ml @ 10 mls/hr Q24H IV Last administered on 07:09; Admin Dose 10 MLS/HR; Start 05/12/17 at 12:00 Hydromorphone HCl (Dilaudid MANUFACTURING APPLICATIONS ENGINEER) 0.5 MG/HR CONTINUOUS RATE ... Q4PCA IV Last administered on 05/19/17 09:56; Admin Dose 6 MG; Start 05/12/17 at 13:00; Status Future Hold Ibuprofen (Motrin) 400 mg Q6 PO Last administered on 05/18/17 18:08; Admin Dose 400 MG; Start 05/12/17 at 13:00 Naloxone HCl (Narcan) 0.2 mg Q2M PRN IV DECREASED REPIRATORY RATE; Start at 08:00 Methadone HCl (Methadone Liq) 3 mg BID PO Last administered on 05/18/17 09:01 ; Admin Dose 3 MG; Start 05/13/17 at 15:49 Hydromorphone HCl (Dilaudid) 0.5 mg Q1H PRN IV SEVERE PAIN LEVEL 7-10 Last administered on 05/14/17 02:36; Admin Dose 0.5 MG; Start 05/14/17 at 02:30 Fish Oil 1000 mg 1,000 mg BID PO Last administered on 05/18/17 08:55; Admin Dose 1,000 MG; Start 05/14/17 at 13:00 Ceftriaxone Sodium (Rocephin) 50 ml @ 100 mls/hr Q24H IVPB Last administered on 05/19/17 13:34; Admin Dose 100 MLS/HR; Start 05/14/17 at 13:00 Docusate Sodium (Colace) 200 mg BID PO Last administered on 05/17/17 20:19; Admin Dose 200 MG; Start 05/14/17 at 21:00 Magnesium Hydroxide (Milk Of Mag) 30 ml DAILY PRN PO CONSTIPATION Last administered on 05/15/17 15:12; Admin Dose 30 ML; Start 05/14/17 at 17:00 Benazepril HCl (Lotensin) 10 mg BID PO Last administered on 05/19/17 09:45; Admin Dose 10 MG; Start 05/15/17 at 21:00 Bisacodyl (Dulcolax Supp) 10 mg DAILY PRN [place] CONSTIPATION Last administered on 05/16/17 17:30; Admin Dose 10 MG; Start 05/16/17 at 12:00 Pantoprazole 40 mg 40 mg DAILY@06 PO Last administered on 05/18/17 06:24; Admin Dose 40 MG; Start 05/17/17 at 06:00 Sodium Chloride 1,000 ml @ 100 mls/hr Q10H IV Last administered on 05/19/17 09:54; Admin Dose 100 MLS/HR; Start 05/17/17 at 19:00 Fluorouracil/ Sodium Chloride (Fluorouracil/NS) 550 ml @ 23.913 mls/ hr Q23H IVPB Last administered on 05/19/17 01:36; Admin Dose 23.913 MLS/HR; Start 10/23 at 01:15; Stop 05/19/17 at 23:14 Methylprednisolone Sodium Succinate (Solu-Medrol) 60 mg Q2H PRN IV ALLERGIC REACTION; Start 05/18/17 at 09:30 Diphenhydramine HCl (Benadryl) 25 mg Q2H PRN IV ALLERGIC REACTION; Start at 09:30 Nitroglycerin (Nitroglycerin (Sl Tab) 0.4 Mg) 1 tab Q5M PRN SL ANGINA; Start at 15:00 Hydromorphone HCl (Dilaudid) 6 mg Q6H PO Last administered on 05/19/17 16:30; Admin Dose 6 MG; Start 05/19/17 at 16:00 Metoclopramide HCl (Reglan) 10 mg Q8 PRN PO NAUSEA Last administered on 17:13; Admin Dose 10 MG; Start 05/19/17 at 16:00 VASHTI KING May 19, 2017 18:59
[2017-05-19] MEDS: HYDROmorphONE 1 MG/ML SYG IV PRN (20:34)
--- NOTE | 2017-05-19 23:30 | PN ---
Date/Time of Note Date/Time of Note DATE: 05/19/17 TIME: 23:29 Assessment/Plan VTE Prophylaxis VTE Prophylaxis Intervention: other Lines/Catheters IV Catheter Type (from Nrs): Port-A-Cath Urinary Cath still in place: No Assessment/Plan Chief Complaint/Hosp Course PANCREATIC MASS metastatic ca pancrease PNEUMONIA LEUCOCYTOSIS pul edema PLAN ANTIBIOTIC PER SURGERY chemo cardio f/u pain meds Problems: Subjective 24 Hr Interval Summary Subjective hx not possible: other (will start po pain meds) Exam/Review of Systems Vital Signs Vitals Vital Signs Date Time Temp Pulse Resp B/P Pulse Ox O2 Delivery O2 Flow Rate FiO2 05/19/17 19:53 98.6 91 20 142/96 99 05/19/17 19:10 Nasal Cannula 3 Intake and Output 05/18/17 05/18/17 05/19/17 15:00 23:00 07:00 Intake Total 50 ml 2112.64 ml 2269.11 ml Output Total 100 ml 300 ml Balance 50 ml 2012.64 ml 1969.11 ml Exam Neck: supple Respiratory: clear to auscultation Cardiovascular: regular rate and rhythm Gastrointestinal: bowel sounds, soft Results Result Diagram: 05/19/17 0521 05/19/17 0521 Results 24 hrs Laboratory Tests Test 05/19/17 00:54 05/19/17 05:21 05/19/17 08:42 05/19/17 12:28 Troponin I < 0.012 White Blood Count 12.3 H Red Blood Count 4.36 L Hemoglobin 13.3 L Hematocrit 40.3 L Mean Corpuscular Volume 92.4 Mean Corpuscular Hemoglobin 30.5 Mean Corpuscular Hemoglobin Concent 33.0 Red Cell Distribution Width 12.4 Platelet Count 154 Mean Platelet Volume 14.5 H Neutrophils % 78.7 H Lymphocytes % 14.5 L Monocytes % 5.7 Eosinophils % 0.3 Basophils % 0.2 Nucleated Red Blood Cells % 0.0 Neutrophils # 9.6 H Lymphocytes # 1.8 Monocytes # 0.7 Eosinophils # 0.0 Basophils # 0.0 Nucleated Red Blood Cells # 0.0 Sodium Level 131 L Potassium Level 4.1 Chloride Level 100 Carbon Dioxide Level 29 Anion Gap 6 L Blood Urea Nitrogen 22 H Creatinine 0.67 Glucose Level 116 Calcium Level 9.0 Total Bilirubin 0.1 L Direct Bilirubin 0.00 Indirect Bilirubin 0.1 Aspartate Amino Transf (AST/SGOT) 33 Alanine Aminotransferase (ALT/SGPT) 51 Alkaline Phosphatase 138 H Total Protein 6.4 Albumin 3.7 Globulin 2.70 Albumin/Globulin Ratio 1.37 Bedside Glucose 113 107 Test 05/19/17 17:28 05/19/17 20:50 Bedside Glucose 108 117 Medications Medications Current Medications Diagnostic Test (Pha) (Accu-Chek) 1 ea 02 XX Last administered on 05/16/17 02: 34; Admin Dose 1 EA; Start 05/13/17 at 02:00 Ondansetron HCl (Zofran Inj) 4 mg Q4H PRN IV NAUSEA AND/OR VOMITING Last administered on 05/19/17 19:06; Admin Dose 4 MG; Start 05/12/17 at 03:00 Bisacodyl (Dulcolax) 10 mg BID PRN PO CONSTIPATION Last administered on 09:17; Admin Dose 10 MG; Start 05/12/17 at 03:00 Nicotine (Nicoderm 21 Mg/ 24hr) 1 patch DAILY TRANSDERM Last administered on 09:29; Admin Dose 1 PATCH; Start 05/12/17 at 09:00 Docusate Sodium (Colace) 100 mg BID PRN PO CONSTIPATION; Start 05/12/17 at 03:00 Acetaminophen (Tylenol Tab) 650 mg Q6H PRN PO PAIN AND OR ELEVATED TEMP Last administered on 05/12/17 11:52; Admin Dose 650 MG; Start 05/12/17 at 03:00 Miscellaneous Information 1 ea NOTE XX ; Start 05/12/17 at 03:15 Glucose (Glutose) 15 gm Q15M PRN PO DECREASED GLUCOSE; Start 05/12/17 at 03:15 Glucose (Glutose) 22.5 gm Q15M PRN PO DECREASED GLUCOSE; Start 05/12/17 at 03:15 Dextrose (D50w Syringe) 25 ml Q15M PRN IV DECREASED GLUCOSE; Start 05/12/17 at 03:15 Dextrose (D50w Syringe) 50 ml Q15M PRN IV DECREASED GLUCOSE; Start 05/12/17 at 03:15 Glucagon (Glucagen) 1 mg Q15M PRN IM DECREASED GLUCOSE; Start 05/12/17 at 03:15 Glucose 15 gm 15 gm Q15M PRN BUCCAL DECREASED GLUCOSE; Start 05/12/17 at 03:15 Sodium Chloride (NS) 1,000 ml @ 10 mls/hr Q24H IV Last administered on 07:09; Admin Dose 10 MLS/HR; Start 05/12/17 at 12:00 Hydromorphone HCl (Dilaudid CREATIVE ENGAGEMENT DIRECTOR) 0.5 MG/HR CONTINUOUS RATE ... Q4PCA IV Last administered on 05/19/17 09:56; Admin Dose 6 MG; Start 05/12/17 at 13:00; Status Future Hold Ibuprofen (Motrin) 400 mg Q6 PO Last administered on 05/19/17 19:06; Admin Dose 400 MG; Start 05/12/17 at 13:00 Naloxone HCl (Narcan) 0.2 mg Q2M PRN IV DECREASED REPIRATORY RATE; Start at 08:00 Methadone HCl (Methadone Liq) 3 mg BID PO Last administered on 05/19/17 20:34 ; Admin Dose 3 MG; Start 05/13/17 at 15:49 Hydromorphone HCl (Dilaudid) 0.5 mg Q1H PRN IV SEVERE PAIN LEVEL 7-10 Last administered on 05/19/17 20:34; Admin Dose 0.5 MG; Start 05/14/17 at 02:30 Fish Oil 1000 mg 1,000 mg BID PO Last administered on 05/19/17 20:40; Admin Dose 1,000 MG; Start 05/14/17 at 13:00 Ceftriaxone Sodium (Rocephin) 50 ml @ 100 mls/hr Q24H IVPB Last administered on 05/19/17 13:34; Admin Dose 100 MLS/HR; Start 05/14/17 at 13:00 Docusate Sodium (Colace) 200 mg BID PO Last administered on 05/19/17 20:40; Admin Dose 200 MG; Start 05/14/17 at 21:00 Magnesium Hydroxide (Milk Of Mag) 30 ml DAILY PRN PO CONSTIPATION Last administered on 05/15/17 15:12; Admin Dose 30 ML; Start 05/14/17 at 17:00 Benazepril HCl (Lotensin) 10 mg BID PO Last administered on 05/19/17 20:41; Admin Dose 10 MG; Start 05/15/17 at 21:00 Bisacodyl (Dulcolax Supp) 10 mg DAILY PRN [place] CONSTIPATION Last administered on 05/16/17 17:30; Admin Dose 10 MG; Start 05/16/17 at 12:00 Pantoprazole 40 mg 40 mg DAILY@06 PO Last administered on 05/18/17 06:24; Admin Dose 40 MG; Start 05/17/17 at 06:00 Sodium Chloride (NS) 1,000 ml @ 100 mls/hr Q10H IV Last administered on 20:45; Admin Dose 100 MLS/HR; Start 05/17/17 at 19:00 Methylprednisolone Sodium Succinate (Solu-Medrol) 60 mg Q2H PRN IV ALLERGIC REACTION; Start 05/18/17 at 09:30 Diphenhydramine HCl (Benadryl) 25 mg Q2H PRN IV ALLERGIC REACTION; Start at 09:30 Nitroglycerin (Nitroglycerin (Sl Tab) 0.4 Mg) 1 tab Q5M PRN SL ANGINA; Start at 15:00 Hydromorphone HCl (Dilaudid) 6 mg Q6H PO Last administered on 05/19/17 21:53; Admin Dose 6 MG; Start 05/19/17 at 16:00 Metoclopramide HCl (Reglan) 10 mg Q8 PRN PO NAUSEA Last administered on 17:13; Admin Dose 10 MG; Start 05/19/17 at 16:00 ENRIQUE LOPEZ MD May 19, 2017 23:30
[2017-05-20 00:01] VITALS: BP 122/59; PULSE 61; RESP 18
[2017-05-20] MEDS: IBUPROFEN 400 MG TAB PO SCH ×5 (00:06→22:03)
[2017-05-20 02:00] VITALS: BP 120/63; PULSE 60; RESP 17
[2017-05-20] MEDS: ACCU-CHEK XX SCH (02:00)
[2017-05-20] MEDS: HYDROmorphONE 2 MG TAB PO SCH ×4 (03:13→22:02)
[2017-05-20] MEDS: SOD CHLORIDE 0.9% 1,000 ML IV SCH ×3 (06:54→17:00)
[2017-05-20] MEDS: INSULIN ASPART [NOVOLOG] 3 ML PEN SC SCH ×4 (07:50→21:00)
[2017-05-20 07:58] VITALS: BP 133/80; RESP 19
[2017-05-20] MEDS: FISH OIL 1,000 MG CAP PO SCH ×2 (08:50→22:02)
[2017-05-20] MEDS: PANTOPRAZOLE (EC) 40 MG TAB PO SCH (08:50)
[2017-05-20] MEDS: DOCUSATE SODIUM 100 MG CAP PO SCH ×2 (08:51→22:03)
[2017-05-20] MEDS: NICOTINE (21 MG/24 HR) PATCH TRANSDERM SCH (09:00)
[2017-05-20] MEDS: BENAZEPRIL 10 MG TAB PO SCH ×2 (09:54→22:03)
[2017-05-20] MEDS: METHADONE (1 MG/ML 5 ML PO UD SYG) PO SCH ×2 (09:56→22:02)
[2017-05-20] MEDS: CEFTRIAXONE 1 GM/50 ML (PMX) 50 ML IVPB SCH (13:00)
--- NOTE | 2017-05-20 14:19 | PN ---
Date/Time of Note Date/Time of Note DATE: 05/20/17 TIME: 14:18 Assessment/Plan VTE Prophylaxis VTE Prophylaxis Intervention: ambulation Lines/Catheters IV [facility] Port[facility]A-Cath Urinary Cath still in place: No Assessment/Plan Chief Complaint/Hosp Course 1. DM uncontrolled 2. Possible adenocarcinoma of the pancreas with lymphadenopathy 3. S/p biopsy of abdomen 4. Obesity 5. Nocturnal bradycardia 6. Hepatic lesions 7. Dyslipidemia 8. SIRS Problems: Assessment/Plan 1. Prescription for testing BS TID id given 2. Discharge Subjective 24 Hr Interval Summary Constitutional: no complaints Gastrointestinal: pain Exam/Review of Systems Vital Signs Vitals Vital Signs Date Time Temp Pulse Resp B/P Pulse Ox O2 Delivery O2 Flow Rate FiO2 05/20/17 07:58 97.9 82 19 133/80 99 05/20/17 02:00 Nasal Cannula 3.0 Intake and Output 05/19/17 05/19/17 05/20/17 15:00 23:00 07:00 Intake Total 2036 ml 1548.35 ml Output Total 900 ml 600 ml Balance 1136 ml 948.35 ml Exam Constitutional: alert, oriented Respiratory: clear to auscultation Cardiovascular: regular rate and rhythm Results Result Diagram: 05/19/17 0521 05/19/17 0521 Results 24 hrs Laboratory Tests Test 05/19/17 17:28 05/19/17 20:50 05/20/17 08:47 05/20/17 12:58 Bedside Glucose 108 117 126 146 Medications Medications Current Medications Diagnostic Test (Pha) (Accu-Chek) 1 ea 02 XX Last administered on 05/16/17 02: 34; Admin Dose 1 EA; Start 05/13/17 at 02:00 Ondansetron HCl (Zofran Inj) 4 mg Q4H PRN IV NAUSEA AND/OR VOMITING Last administered on 05/19/17 19:06; Admin Dose 4 MG; Start 05/12/17 at 03:00 Bisacodyl (Dulcolax) 10 mg BID PRN PO CONSTIPATION Last administered on 09:17; Admin Dose 10 MG; Start 05/12/17 at 03:00 Nicotine (Nicoderm 21 Mg/ 24hr) 1 patch DAILY TRANSDERM Last administered on 09:29; Admin Dose 1 PATCH; Start 05/12/17 at 09:00 Docusate Sodium (Colace) 100 mg BID PRN PO CONSTIPATION; Start 05/12/17 at 03:00 Acetaminophen (Tylenol Tab) 650 mg Q6H PRN PO PAIN AND OR ELEVATED TEMP Last administered on 05/12/17 11:52; Admin Dose 650 MG; Start 05/12/17 at 03:00 Miscellaneous Information 1 ea NOTE XX ; Start 05/12/17 at 03:15 Glucose (Glutose) 15 gm Q15M PRN PO DECREASED GLUCOSE; Start 05/12/17 at 03:15 Glucose (Glutose) 22.5 gm Q15M PRN PO DECREASED GLUCOSE; Start 05/12/17 at 03:15 Dextrose (D50w Syringe) 25 ml Q15M PRN IV DECREASED GLUCOSE; Start 05/12/17 at 03:15 Dextrose (D50w Syringe) 50 ml Q15M PRN IV DECREASED GLUCOSE; Start 05/12/17 at 03:15 Glucagon (Glucagen) 1 mg Q15M PRN IM DECREASED GLUCOSE; Start 05/12/17 at 03:15 Glucose 15 gm 15 gm Q15M PRN BUCCAL DECREASED GLUCOSE; Start 05/12/17 at 03:15 Sodium Chloride (NS) 1,000 ml @ 10 mls/hr Q24H IV Last administered on 07:09; Admin Dose 10 MLS/HR; Start 05/12/17 at 12:00 Hydromorphone HCl (Dilaudid DRAPERY OPERATOR) 0.5 MG/HR CONTINUOUS RATE ... Q4PCA IV Last administered on 05/19/17 09:56; Admin Dose 6 MG; Start 05/12/17 at 13:00; Status Future Hold Ibuprofen (Motrin) 400 mg Q6 PO Last administered on 05/20/17 13:00; Admin Dose 400 MG; Start 05/12/17 at 13:00 Naloxone HCl (Narcan) 0.2 mg Q2M PRN IV DECREASED REPIRATORY RATE; Start at 08:00 Methadone HCl (Methadone Liq) 3 mg BID PO Last administered on 05/20/17 09:56 ; Admin Dose 3 MG; Start 05/13/17 at 15:49 Hydromorphone HCl (Dilaudid) 0.5 mg Q1H PRN IV SEVERE PAIN LEVEL 7-10 Last administered on 05/19/17 20:34; Admin Dose 0.5 MG; Start 05/14/17 at 02:30 Fish Oil 1000 mg 1,000 mg BID PO Last administered on 05/20/17 08:50; Admin Dose 1,000 MG; Start 05/14/17 at 13:00 Ceftriaxone Sodium (Rocephin) 50 ml @ 100 mls/hr Q24H IVPB Last administered on 05/20/17 13:00; Admin Dose 100 MLS/HR; Start 05/14/17 at 13:00 Docusate Sodium (Colace) 200 mg BID PO Last administered on 05/20/17 08:51; Admin Dose 200 MG; Start 05/14/17 at 21:00 Magnesium Hydroxide (Milk Of Mag) 30 ml DAILY PRN PO CONSTIPATION Last administered on 05/15/17 15:12; Admin Dose 30 ML; Start 05/14/17 at 17:00 Benazepril HCl (Lotensin) 10 mg BID PO Last administered on 05/20/17 09:54; Admin Dose 10 MG; Start 05/15/17 at 21:00 Bisacodyl (Dulcolax Supp) 10 mg DAILY PRN [place] CONSTIPATION Last administered on 05/16/17 17:30; Admin Dose 10 MG; Start 05/16/17 at 12:00 Pantoprazole 40 mg 40 mg DAILY@06 PO Last administered on 05/20/17 08:50; Admin Dose 40 MG; Start 05/17/17 at 06:00 Sodium Chloride (NS) 1,000 ml @ 100 mls/hr Q10H IV Last administered on 10:18; Admin Dose 100 MLS/HR; Start 05/17/17 at 19:00 Methylprednisolone Sodium Succinate (Solu-Medrol) 60 mg Q2H PRN IV ALLERGIC REACTION; Start 05/18/17 at 09:30 Diphenhydramine HCl (Benadryl) 25 mg Q2H PRN IV ALLERGIC REACTION; Start at 09:30 Nitroglycerin (Nitroglycerin (Sl Tab) 0.4 Mg) 1 tab Q5M PRN SL ANGINA; Start at 15:00 Hydromorphone HCl (Dilaudid) 6 mg Q6H PO Last administered on 05/20/17 10:19; Admin Dose 6 MG; Start 05/19/17 at 16:00 Metoclopramide HCl (Reglan) 10 mg Q8 PRN PO NAUSEA Last administered on 17:13; Admin Dose 10 MG; Start 05/19/17 at 16:00 ELIZABET ESPINOZA May 20, 2017 14:19
[2017-05-20] MEDS: HYDROmorphONE 1 MG/ML SYG IV PRN ×2 (14:27→19:32)
[2017-05-20] MEDS: ONDANSETRON 4 MG INJ IV PRN (14:43)
--- NOTE | 2017-05-20 16:35 | CONS ---
Date/Time of Note Date/Time of Note DATE: 05/20/17 TIME: 16:33 Assessment/Plan Assessment/Plan Chief Complaint/Hosp Course IMP: 1.Bradycardia-NL TSH/trop negative x 2, overall improved 2.HTN-reasonable control 3.CHF-diastolic acute on chronic 4.pancreatic mass 5.abd pain 6. chest pain-of onset 05/17 now improved-negative trop x 2 after onset of pain Recc: -Continue to follow HR closely -Continue CTX/steroids -Continue abx's -ONC following -Follow volume status closely -Continue ACEI -Pain control as you are doing Problems: Consultation Date/Type/Reason Admit Date/Time May 12, 2017 at 00:19 Initial Consult Date 05/12/17 Type of Consultation: cardiology Reason for Consultation bradycardia Referring Provider: ANALILIA GUEVARA MD Exam/Review of Systems Vital Signs Vitals Vital Signs Date Time Temp Pulse Resp B/P Pulse Ox O2 Delivery O2 Flow Rate FiO2 05/20/17 07:58 97.9 82 19 133/80 99 05/20/17 02:00 Nasal Cannula 3.0 Intake and Output 05/19/17 05/19/17 05/20/17 15:00 23:00 07:00 Intake Total 2036 ml 1548.35 ml Output Total 900 ml 600 ml Balance 1136 ml 948.35 ml Exam Review of Systems: CONSTITUTIONAL: No fevers, chills. PULMONARY: No sob CARDIOVASCULAR: No chest pain/palpitations GASTROINTESTINAL: No nausea/vomiting. GENITOURINARY: No hematuria/dysuria. MUSCULOSKELETAL: No myagias/arthalgias. PSYCHIATRIC: The patient denies depression. NEUROLOGIC: No weakness Constitutional: alert Psych: no complaints Head: normocephalic ENMT: mucosa pink and moist Neck: jvd (9 cm water), supple Respiratory: diminished breath sounds (at bases/B) Cardiovascular: regular rate and rhythm Gastrointestinal: non-tender, soft Musculoskeletal: muscle tone (normal) Extremities: edema (none) Neurological: other (No focakl deficits) Results Result Diagram: 05/19/17 0521 05/19/17 0521 Results 24 hrs Laboratory Tests Test 05/19/17 17:28 05/19/17 20:50 05/20/17 08:47 05/20/17 12:58 Bedside Glucose 108 117 126 146 Medications Medications Current Medications Diagnostic Test (Pha) (Accu-Chek) 1 ea 02 XX Last administered on 05/16/17 02: 34; Admin Dose 1 EA; Start 05/13/17 at 02:00 Ondansetron HCl (Zofran Inj) 4 mg Q4H PRN IV NAUSEA AND/OR VOMITING Last administered on 05/20/17 14:43; Admin Dose 4 MG; Start 05/12/17 at 03:00 Bisacodyl (Dulcolax) 10 mg BID PRN PO CONSTIPATION Last administered on 09:17; Admin Dose 10 MG; Start 05/12/17 at 03:00 Nicotine (Nicoderm 21 Mg/ 24hr) 1 patch DAILY TRANSDERM Last administered on 09:29; Admin Dose 1 PATCH; Start 05/12/17 at 09:00 Docusate Sodium (Colace) 100 mg BID PRN PO CONSTIPATION; Start 05/12/17 at 03:00 Acetaminophen (Tylenol Tab) 650 mg Q6H PRN PO PAIN AND OR ELEVATED TEMP Last administered on 05/12/17 11:52; Admin Dose 650 MG; Start 05/12/17 at 03:00 Miscellaneous Information 1 ea NOTE XX ; Start 05/12/17 at 03:15 Glucose (Glutose) 15 gm Q15M PRN PO DECREASED GLUCOSE; Start 05/12/17 at 03:15 Glucose (Glutose) 22.5 gm Q15M PRN PO DECREASED GLUCOSE; Start 05/12/17 at 03:15 Dextrose (D50w Syringe) 25 ml Q15M PRN IV DECREASED GLUCOSE; Start 05/12/17 at 03:15 Dextrose (D50w Syringe) 50 ml Q15M PRN IV DECREASED GLUCOSE; Start 05/12/17 at 03:15 Glucagon (Glucagen) 1 mg Q15M PRN IM DECREASED GLUCOSE; Start 05/12/17 at 03:15 Glucose 15 gm 15 gm Q15M PRN BUCCAL DECREASED GLUCOSE; Start 05/12/17 at 03:15 Sodium Chloride (NS) 1,000 ml @ 10 mls/hr Q24H IV Last administered on 07:09; Admin Dose 10 MLS/HR; Start 05/12/17 at 12:00 Hydromorphone HCl (Dilaudid WELLNESS RN) 0.5 MG/HR CONTINUOUS RATE ... Q4PCA IV Last administered on 05/19/17 09:56; Admin Dose 6 MG; Start 05/12/17 at 13:00; Status Future Hold Ibuprofen (Motrin) 400 mg Q6 PO Last administered on 05/20/17 13:00; Admin Dose 400 MG; Start 05/12/17 at 13:00 Naloxone HCl (Narcan) 0.2 mg Q2M PRN IV DECREASED REPIRATORY RATE; Start at 08:00 Methadone HCl (Methadone Liq) 3 mg BID PO Last administered on 05/20/17 09:56 ; Admin Dose 3 MG; Start 05/13/17 at 15:49 Hydromorphone HCl (Dilaudid) 0.5 mg Q1H PRN IV SEVERE PAIN LEVEL 7-10 Last administered on 05/20/17 14:27; Admin Dose 0.5 MG; Start 05/14/17 at 02:30 Fish Oil 1000 mg 1,000 mg BID PO Last administered on 05/20/17 08:50; Admin Dose 1,000 MG; Start 05/14/17 at 13:00 Ceftriaxone Sodium (Rocephin) 50 ml @ 100 mls/hr Q24H IVPB Last administered on 05/20/17 13:00; Admin Dose 100 MLS/HR; Start 05/14/17 at 13:00 Docusate Sodium (Colace) 200 mg BID PO Last administered on 05/20/17 08:51; Admin Dose 200 MG; Start 05/14/17 at 21:00 Magnesium Hydroxide (Milk Of Mag) 30 ml DAILY PRN PO CONSTIPATION Last administered on 05/15/17 15:12; Admin Dose 30 ML; Start 05/14/17 at 17:00 Benazepril HCl (Lotensin) 10 mg BID PO Last administered on 05/20/17 09:54; Admin Dose 10 MG; Start 05/15/17 at 21:00 Bisacodyl (Dulcolax Supp) 10 mg DAILY PRN [place] CONSTIPATION Last administered on 05/16/17 17:30; Admin Dose 10 MG; Start 05/16/17 at 12:00 Pantoprazole 40 mg 40 mg DAILY@06 PO Last administered on 05/20/17 08:50; Admin Dose 40 MG; Start 05/17/17 at 06:00 Sodium Chloride (NS) 1,000 ml @ 100 mls/hr Q10H IV Last administered on 10:18; Admin Dose 100 MLS/HR; Start 05/17/17 at 19:00 Methylprednisolone Sodium Succinate (Solu-Medrol) 60 mg Q2H PRN IV ALLERGIC REACTION; Start 05/18/17 at 09:30 Diphenhydramine HCl (Benadryl) 25 mg Q2H PRN IV ALLERGIC REACTION; Start at 09:30 Nitroglycerin (Nitroglycerin (Sl Tab) 0.4 Mg) 1 tab Q5M PRN SL ANGINA; Start at 15:00 Hydromorphone HCl (Dilaudid) 6 mg Q6H PO Last administered on 05/20/17 15:38; Admin Dose 6 MG; Start 05/19/17 at 16:00 Metoclopramide HCl (Reglan) 10 mg Q8 PRN PO NAUSEA Last administered on 17:13; Admin Dose 10 MG; Start 05/19/17 at 16:00 VASHTI KING May 20, 2017 16:34
[2017-05-20] MEDS ORDERED: HEPARIN (100 UNITS/ML) 5 ML SYG CATHETER ONE (17:00)
--- NOTE | 2017-05-20 17:31 | PDOCDIS ---
Discharge Instructions CONDITION Patient Condition: Stable HOME CARE INSTRUCTIONS: Special Diet: diabetic ACTIVITY: Activity Restrictions: Slowly Increase Activity FOLLOW UP/APPOINTMENTS Follow-up Plan f/u own pcp [address] jimenez 1wk see dr livingston 2 wks ENRIQUE LOPEZ MD May 20, 2017 17:30
[2017-05-20] MEDS ORDERED: NIT4 SL (17:34)
[2017-05-20] MEDS ORDERED: BENA10TA48 PO (17:34)
[2017-05-20] MEDS ORDERED: DOCU-216 PO (17:34)
[2017-05-20] MEDS ORDERED: PANT40TA4 PO (17:34)
[2017-05-20] MEDS ORDERED: BISA10SU75 PR (17:34)
[2017-05-20] MEDS ORDERED: BISA5TAB6 PO (17:34)
[2017-05-20] MEDS ORDERED: NICO1PAT6 TRANSDERM (17:34)
[2017-05-20] MEDS ORDERED: OMEG1CAP55 PO (17:34)
[2017-05-20 19:44] VITALS: BP 160/83; RESP 22
[2017-05-20] MEDS ORDERED: HYDROmorphONE 1 MG/ML SYG IV STA (20:20)
[2017-05-20] MEDS ORDERED: FENTAnyl PATCH 50 MCG/HR TRANSDERM SCH (22:00)
[2017-05-21] MEDS ORDERED: HYDROmorphONE 1 MG/ML SYG IM PRN
[2017-05-21] MEDS: HYDROmorphONE 2 MG TAB PO SCH ×6 (00:30→21:09)
[2017-05-21] MEDS: HYDROmorphONE 1 MG/ML SYG IV PRN ×5 (01:17→21:46)
[2017-05-21] MEDS: ACCU-CHEK XX SCH (02:00)
[2017-05-21] MEDS: SOD CHLORIDE 0.9% 1,000 ML IV SCH ×3 (03:00→12:42)
[2017-05-21] MEDS: PANTOPRAZOLE (EC) 40 MG TAB PO SCH (05:59)
[2017-05-21] MEDS: ONDANSETRON 4 MG INJ IV PRN ×2 (05:59→12:34)
[2017-05-21] MEDS: IBUPROFEN 400 MG TAB PO SCH ×3 (05:59→18:00)
[2017-05-21 08:31] VITALS: BP 147/83; RESP 18
[2017-05-21] MEDS: METHADONE (1 MG/ML 5 ML PO UD SYG) PO SCH ×2 (08:42→21:10)
[2017-05-21] MEDS: FISH OIL 1,000 MG CAP PO SCH ×2 (08:42→20:31)
[2017-05-21] MEDS: DOCUSATE SODIUM 100 MG CAP PO SCH ×2 (08:42→20:31)
[2017-05-21] MEDS: BENAZEPRIL 10 MG TAB PO SCH ×2 (08:43→20:31)
[2017-05-21] MEDS: NICOTINE (21 MG/24 HR) PATCH TRANSDERM SCH (08:43)
[2017-05-21] MEDS: INSULIN ASPART [NOVOLOG] 3 ML PEN SC SCH ×4 (08:58→21:00)
[2017-05-21] MEDS: METOCLOPRAMIDE 10 MG TAB PO PRN (09:04)
[2017-05-21] MEDS: CEFTRIAXONE 1 GM/50 ML (PMX) 50 ML IVPB SCH (12:42)
--- NOTE | 2017-05-21 15:41 | CONS ---
Date/Time of Note Date/Time of Note DATE: 05/21/17 TIME: 15:39 Assessment/Plan Assessment/Plan Chief Complaint/Hosp Course IMP: 1.Bradycardia-NL TSH/trop negative x 2, overall improved 2.HTN-reasonable control 3.CHF-diastolic acute on chronic 4.pancreatic mass 5.abd pain 6. chest pain-of onset 05/17 now improved-negative trop x 2 after onset of pain Recc: -To be d/c'd to outpatient f/u with onc -Continue acei -CTX as tolerated -pain control Problems: Consultation Date/Type/Reason Admit Date/Time May 12, 2017 at 00:19 Initial Consult Date 05/12/17 Type of Consultation: cardiology Reason for Consultation HTN/bradycardia Referring Provider: ANALILIA GUEVARA MD Exam/Review of Systems Vital Signs Vitals Vital Signs Date Time Temp Pulse Resp B/P Pulse Ox O2 Delivery O2 Flow Rate FiO2 05/21/17 08:31 97.7 61 18 147/83 91 05/20/17 02:00 Nasal Cannula 3.0 Intake and Output 05/20/17 05/20/17 05/21/17 15:00 23:00 07:00 Intake Total 50 ml 1250 ml 1000 ml Output Total 400 ml 1200 ml Balance 50 ml 850 ml -200 ml Exam Review of Systems: CONSTITUTIONAL: No fevers, chills. PULMONARY: No sob CARDIOVASCULAR: No chest pain/palpitations GASTROINTESTINAL: mild abd pain GENITOURINARY: No hematuria/dysuria. MUSCULOSKELETAL: No myagias/arthalgias. PSYCHIATRIC: The patient denies depression. NEUROLOGIC: No weakness Constitutional: alert Psych: no complaints Head: normocephalic ENMT: mucosa pink and moist Neck: jvd, supple Respiratory: diminished breath sounds Cardiovascular: regular rate and rhythm Gastrointestinal: non-tender, soft Extremities: edema (none) Neurological: other (No focal deficits) Results Result Diagram: 05/19/1752005/19/17520 Results 24 hrs Laboratory Tests Test 05/20/17 19:02 05/20/17 22:27 05/21/17 08:46 05/21/17 12:38 Bedside Glucose 129 142 152 134 Medications Medications Current Medications Diagnostic Test (Pha) (Accu-Chek) 1 ea 02 XX Last administered on 05/16/17t 02: 34; Admin Dose 1 EA; Start 05/13/17 at 02:00 Ondansetron HCl (Zofran Inj) 4 mg Q4H PRN IV NAUSEA AND/OR VOMITING Last administered on 05/21/17 12:34; Admin Dose 4 MG; Start 05/12/17 at 03:00 Bisacodyl (Dulcolax) 10 mg BID PRN PO CONSTIPATION Last administered on 09:17; Admin Dose 10 MG; Start 05/12/17 at 03:00 Nicotine (Nicoderm 21 Mg/ 24hr) 1 patch DAILY TRANSDERM Last administered on 09:29; Admin Dose 1 PATCH; Start 05/12/17 at 09:00 Docusate Sodium (Colace) 100 mg BID PRN PO CONSTIPATION; Start 05/12/17 at 03:00 Acetaminophen (Tylenol Tab) 650 mg Q6H PRN PO PAIN AND OR ELEVATED TEMP Last administered on 05/12/17 11:52; Admin Dose 650 MG; Start 05/12/17 at 03:00 Miscellaneous Information 1 ea NOTE XX ; Start 05/12/17 at 03:15 Glucose (Glutose) 15 gm Q15M PRN PO DECREASED GLUCOSE; Start 05/12/17 at 03:15 Glucose (Glutose) 22.5 gm Q15M PRN PO DECREASED GLUCOSE; Start 05/12/17 at 03:15 Dextrose (D50w Syringe) 25 ml Q15M PRN IV DECREASED GLUCOSE; Start 05/12/17 at 03:15 Dextrose (D50w Syringe) 50 ml Q15M PRN IV DECREASED GLUCOSE; Start 05/12/17 at 03:15 Glucagon (Glucagen) 1 mg Q15M PRN IM DECREASED GLUCOSE; Start 05/12/17 at 03:15 Glucose 15 gm 15 gm Q15M PRN BUCCAL DECREASED GLUCOSE; Start 05/12/17 at 03:15 Sodium Chloride (NS) 1,000 ml @ 10 mls/hr Q24H IV Last administered on 07:09; Admin Dose 10 MLS/HR; Start 05/12/17 at 12:00 Hydromorphone HCl (Dilaudid MANNEQUIN DECORATOR) 0.5 MG/HR CONTINUOUS RATE ... Q4PCA IV Last administered on 05/19/17 09:56; Admin Dose 6 MG; Start 05/12/17 at 13:00; Status Future Hold Ibuprofen (Motrin) 400 mg Q6 PO Last administered on 05/21/17 12:33; Admin Dose 400 MG; Start 05/12/17 at 13:00 Naloxone HCl (Narcan) 0.2 mg Q2M PRN IV DECREASED REPIRATORY RATE; Start at 08:00 Methadone HCl (Methadone Liq) 3 mg BID PO Last administered on 05/21/17 08:42 ; Admin Dose 3 MG; Start 05/13/17 at 15:49 Hydromorphone HCl (Dilaudid) 0.5 mg Q1H PRN IV SEVERE PAIN LEVEL 7-10 Last administered on 05/20/17 19:32; Admin Dose 0.5 MG; Start 05/14/17 at 02:30; Status Future Hold Fish Oil 1000 mg 1,000 mg BID PO Last administered on 05/21/17 08:42; Admin Dose 1,000 MG; Start 05/14/17 at 13:00 Ceftriaxone Sodium (Rocephin) 50 ml @ 100 mls/hr Q24H IVPB Last administered on 05/21/17 12:42; Admin Dose 100 MLS/HR; Start 05/14/17 at 13:00 Docusate Sodium (Colace) 200 mg BID PO Last administered on 05/21/17 08:42; Admin Dose 200 MG; Start 05/14/17 at 21:00 Magnesium Hydroxide (Milk Of Mag) 30 ml DAILY PRN PO CONSTIPATION Last administered on 05/15/17 15:12; Admin Dose 30 ML; Start 05/14/17 at 17:00 Benazepril HCl (Lotensin) 10 mg BID PO Last administered on 05/21/17 08:43; Admin Dose 10 MG; Start 05/15/17 at 21:00 Bisacodyl (Dulcolax Supp) 10 mg DAILY PRN [place] CONSTIPATION Last administered on 05/16/17 17:30; Admin Dose 10 MG; Start 05/16/17 at 12:00 Pantoprazole 40 mg 40 mg DAILY@06 PO Last administered on 05/21/17 05:59; Admin Dose 40 MG; Start 05/17/17 at 06:00 Sodium Chloride (NS) 1,000 ml @ 100 mls/hr Q10H IV Last administered on 10:18; Admin Dose 100 MLS/HR; Start 05/17/17 at 19:00 Methylprednisolone Sodium Succinate (Solu-Medrol) 60 mg Q2H PRN IV ALLERGIC REACTION; Start 05/18/17 at 09:30 Diphenhydramine HCl (Benadryl) 25 mg Q2H PRN IV ALLERGIC REACTION; Start at 09:30 Nitroglycerin (Nitroglycerin (Sl Tab) 0.4 Mg) 1 tab Q5M PRN SL ANGINA; Start at 15:00 Metoclopramide HCl (Reglan) 10 mg Q8 PRN PO NAUSEA Last administered on 09:04; Admin Dose 10 MG; Start 05/19/17 at 16:00 Hydromorphone HCl (Dilaudid) 8 mg Q4H PO Last administered on 05/21/17 12:33; Admin Dose 8 MG; Start 05/20/17 at 20:30 Fentanyl (Duragesic 50 Mcg/Hr Patch) 1 patch Q72H TRANSDERM Last administered on 05/20/17 22:22; Admin Dose 1 PATCH; Start 05/20/17 at 22:00 Hydromorphone HCl (Dilaudid) 0.75 mg Q1HWA PRN IV SEVERE PAIN LEVEL 7-10 Last administered on 05/21/17 15:04; Admin Dose 0.75 MG; Start 05/21/17 at 01:30 VASHTI KING May 21, 2017 15:41
--- NOTE | 2017-05-21 16:22 | PN ---
Date/Time of Note Date/Time of Note DATE: 05/21/17 TIME: 16:20 Assessment/Plan VTE Prophylaxis VTE Prophylaxis Intervention: ambulation Lines/Catheters IV Catheter Type (from Nrs): Central Line Central line still needed: Yes Urinary Cath still in place: No Assessment/Plan Chief Complaint/Hosp Course 1. DM controlled 2. Adenocarcinoma of the pancreas with lymphadenopathy 3. S/p biopsy of abdomen, pain is uncontrolled 4. Obesity 5. Nocturnal bradycardia 6. Hepatic lesions 7. Dyslipidemia 8. SIRS, resolved Problems: Assessment/Plan 1. Discharge pending Subjective 24 Hr Interval Summary Free Text/Dictation pain is not controlled Constitutional: improved Exam/Review of Systems Vital Signs Vitals Vital Signs Date Time Temp Pulse Resp B/P Pulse Ox O2 Delivery O2 Flow Rate FiO2 05/21/17 08:31 97.7 61 18 147/83 91 05/20/17 02:00 Nasal Cannula 3.0 Intake and Output 05/20/17 05/20/17 05/21/17 15:00 23:00 07:00 Intake Total 50 ml 1250 ml 1000 ml Output Total 400 ml 1200 ml Balance 50 ml 850 ml -200 ml Exam Constitutional: alert, oriented Respiratory: clear to auscultation Cardiovascular: regular rate and rhythm Results Result Diagram: 05/19/1721 05/19/17 05 Results 24 hrs Laboratory Tests Test 05/20/17 19:02 05/20/17 22:27 05/21/17 08:46 05/21/17 12:38 Bedside Glucose 129 142 152 134 Medications Medications Current Medications Diagnostic Test (Pha) (Accu-Chek) 1 ea 02 XX Last administered on 05/16/17 02: 34; Admin Dose 1 EA; Start 05/13/17 at 02:00 Ondansetron HCl (Zofran Inj) 4 mg Q4H PRN IV NAUSEA AND/OR VOMITING Last administered on 05/21/17 12:34; Admin Dose 4 MG; Start 05/12/17 at 03:00 Bisacodyl (Dulcolax) 10 mg BID PRN PO CONSTIPATION Last administered on 09:17; Admin Dose 10 MG; Start 05/12/17 at 03:00 Nicotine (Nicoderm 21 Mg/ 24hr) 1 patch DAILY TRANSDERM Last administered on 09:29; Admin Dose 1 PATCH; Start 05/12/17 at 09:00 Docusate Sodium (Colace) 100 mg BID PRN PO CONSTIPATION; Start 05/12/17 at 03:00 Acetaminophen (Tylenol Tab) 650 mg Q6H PRN PO PAIN AND OR ELEVATED TEMP Last administered on 05/12/17 11:52; Admin Dose 650 MG; Start 05/12/17 at 03:00 Miscellaneous Information 1 ea NOTE XX ; Start 05/12/17 at 03:15 Glucose (Glutose) 15 gm Q15M PRN PO DECREASED GLUCOSE; Start 05/12/17 at 03:15 Glucose (Glutose) 22.5 gm Q15M PRN PO DECREASED GLUCOSE; Start 05/12/17 at 03:15 Dextrose (D50w Syringe) 25 ml Q15M PRN IV DECREASED GLUCOSE; Start 05/12/17 at 03:15 Dextrose (D50w Syringe) 50 ml Q15M PRN IV DECREASED GLUCOSE; Start 05/12/17 at 03:15 Glucagon (Glucagen) 1 mg Q15M PRN IM DECREASED GLUCOSE; Start 05/12/17 at 03:15 Glucose 15 gm 15 gm Q15M PRN BUCCAL DECREASED GLUCOSE; Start 05/12/17 at 03:15 Sodium Chloride (NS) 1,000 ml @ 10 mls/hr Q24H IV Last administered on 07:09; Admin Dose 10 MLS/HR; Start 05/12/17 at 12:00 Hydromorphone HCl (Dilaudid DOUBLE CUTTER) 0.5 MG/HR CONTINUOUS RATE ... Q4PCA IV Last administered on 05/19/17 09:56; Admin Dose 6 MG; Start 05/12/17 at 13:00; Status Future Hold Ibuprofen (Motrin) 400 mg Q6 PO Last administered on 05/21/17 12:33; Admin Dose 400 MG; Start 05/12/17 at 13:00 Naloxone HCl (Narcan) 0.2 mg Q2M PRN IV DECREASED REPIRATORY RATE; Start at 08:00 Methadone HCl (Methadone Liq) 3 mg BID PO Last administered on 05/21/17 08:42 ; Admin Dose 3 MG; Start 05/13/17 at 15:49 Hydromorphone HCl (Dilaudid) 0.5 mg Q1H PRN IV SEVERE PAIN LEVEL 7-10 Last administered on 05/20/17 19:32; Admin Dose 0.5 MG; Start 05/14/17 at 02:30; Status Future Hold Fish Oil 1000 mg 1,000 mg BID PO Last administered on 05/21/17 08:42; Admin Dose 1,000 MG; Start 05/14/17 at 13:00 Ceftriaxone Sodium (Rocephin) 50 ml @ 100 mls/hr Q24H IVPB Last administered on 05/21/17 12:42; Admin Dose 100 MLS/HR; Start 05/14/17 at 13:00 Docusate Sodium (Colace) 200 mg BID PO Last administered on 05/21/17 08:42; Admin Dose 200 MG; Start 05/14/17 at 21:00 Magnesium Hydroxide (Milk Of Mag) 30 ml DAILY PRN PO CONSTIPATION Last administered on 05/15/17 15:12; Admin Dose 30 ML; Start 05/14/17 at 17:00 Benazepril HCl (Lotensin) 10 mg BID PO Last administered on 05/21/17 08:43; Admin Dose 10 MG; Start 05/15/17 at 21:00 Bisacodyl (Dulcolax Supp) 10 mg DAILY PRN [place] CONSTIPATION Last administered on 05/16/17 17:30; Admin Dose 10 MG; Start 05/16/17 at 12:00 Pantoprazole 40 mg 40 mg DAILY@06 PO Last administered on 05/21/17 05:59; Admin Dose 40 MG; Start 05/17/17 at 06:00 Sodium Chloride (NS) 1,000 ml @ 100 mls/hr Q10H IV Last administered on 10:18; Admin Dose 100 MLS/HR; Start 05/17/17 at 19:00 Methylprednisolone Sodium Succinate (Solu-Medrol) 60 mg Q2H PRN IV ALLERGIC REACTION; Start 05/18/17 at 09:30 Diphenhydramine HCl (Benadryl) 25 mg Q2H PRN IV ALLERGIC REACTION; Start at 09:30 Nitroglycerin (Nitroglycerin (Sl Tab) 0.4 Mg) 1 tab Q5M PRN SL ANGINA; Start at 15:00 Metoclopramide HCl (Reglan) 10 mg Q8 PRN PO NAUSEA Last administered on 09:04; Admin Dose 10 MG; Start 05/19/17 at 16:00 Hydromorphone HCl (Dilaudid) 8 mg Q4H PO Last administered on 05/21/17 12:33; Admin Dose 8 MG; Start 05/20/17 at 20:30 Fentanyl (Duragesic 50 Mcg/Hr Patch) 1 patch Q72H TRANSDERM Last administered on 05/20/17 22:22; Admin Dose 1 PATCH; Start 05/20/17 at 22:00 Hydromorphone HCl (Dilaudid) 0.75 mg Q1HWA PRN IV SEVERE PAIN LEVEL 7-10 Last administered on 05/21/17 15:04; Admin Dose 0.75 MG; Start 05/21/17 at 01:30 ELIZABET ESPINOZA May 21, 2017 16:22
[2017-05-21 20:13] VITALS: BP 136/91; RESP 19
[2017-05-21 21:40] VITALS: BP 130/75; PULSE 80
[2017-05-21] MEDS ORDERED: HEPARIN (100 UNITS/ML) 5 ML SYG CATHETER ONE (22:30)
--- NOTE | 2017-05-23 13:20 | PN ---
DATE: 05/14/2017 SUBJECTIVE DATA: The patient has been admitted for an evaluation and further workup of a mass in the head and the tail of the pancreas, and also control of intractable abdominal pain. He states that today he feels better and Dilaudid is helping to control the pain. Also, methadone has been started. He complains he has not had any bowel movement for the past three days. No nausea or vomiting. OBJECTIVE DATA: Vital signs: Temperature 98.7, heart rate 76 and regular, respirations 18, blood pressure 127/83, saturation 96 percent. Head and neck within normal limits. Heart regular. Lungs clear. Abdomen soft. LABORATORY AND DIAGNOSTIC DATA: Today, WBC 11,500 with 75 percent segmented which is normal differential. Hemoglobin 14.7, hematocrit 40. Chemistry: BUN and creatinine normal. Sodium and potassium normal. Cholesterol normal. HDL cholesterol 26, very low. Platelets satisfactory at 168. ASSESSMENT AND PLAN: This is a 51-year-old gentleman who has been having intractable abdominal pain, constant for three months. He was admitted through Dr. Munoz' office through the emergency room. CT scan has revealed the presence of a mass suspicious for adenocarcinoma in the tail of the pancreas with some areas of possible metastases including liver. Yesterday, CT- guided percutaneous needle aspiration biopsy was done. The results of pathology are not back yet. Plan: The patient has been consulted by Dr. Loki Quiles today, the pancreatic surgeon as well. We are waiting for the result of the pathology. Meanwhile, the patient is treated for control of the pain. I am going to give some laxatives to make the patient have a bowel movement. Dictated By: Olivier Thornton MD /usha/antonio /Document#: [id number]
--- NOTE | 2017-05-23 22:13 | DS ---
Date/Time of Note Date/Time of Note DATE: 05/23/17 TIME: 22:07 Discharge Summary Admission/Discharge Info Admit Date/Time May 12, 2017 at 00:19 Discharge Date/Time May 21, 2017 at 22:09 Discharge Diagnosis pancreatic mass, moder. diff adenocanrcinoma, s/p biopsy Patient Condition: Serious Consults Dr Pelayo Procedures biopsy of pancreas Hx of Present Illness pt was admitted after intractable abdominal pain Hospital Course 1. DM controlled 2. Adenocarcinoma of the pancreas with lymphadenopathy 3. S/p biopsy of abdomen, pain is uncontrolled 4. Obesity 5. Nocturnal bradycardia 6. Hepatic lesions 7. Dyslipidemia 8. SIRS, resolved Home Meds Active Scripts Pantoprazole* (Pantoprazole*) 40 Mg Tablet.dr, 40 MG PO DAILY@06 for 28 Days Prov:ENRIQUE LOPEZ MD 05/20/17 Docusate Sodium (Dok) 100 Mg Capsule, 200 MG PO BID for 28 Days, CAP Prov:ENRIQUE LOPEZ MD 05/20/17 Bisacodyl* (Bisacodyl*) 5 Mg Tablet.dr, 10 MG PO BID Y for CONSTIPATION for 28 Days Prov:ENRIQUE LOPEZ MD 05/20/17 Bisacodyl* (Bisacodyl*) 10 Mg Supp, 10 MG CA DAILY Y for CONSTIPATION for 14 Days, SUPP Prov:ENRIQUE LOPEZ MD 05/20/17 [place]-3/Dha/Epa/Fish Oil (FISH OIL EC 1,000 MG SOFTGEL) 1 Each Capsule.dr, 1000 MG PO BID for 28 Days Prov:ENRIQUE LOPEZ MD 05/20/17 Nitroglycerin* (Nitrostat*) 0.4 Mg Tab.subl, 1 TAB SL Q5M Y for ANGINA for 28 Days Prov:ENRIQUE LOPEZ MD 05/20/17 Benazepril Hcl* (Benazepril Hcl*) 10 Mg Tablet, 10 MG PO BID for 14 Days, TAB Prov:ENRIQUE LOPEZ MD 05/20/17 Nicotine* (Nicotine* Patch) 21 mg/day Patch, 1 PATCH TRANSDERM DAILY for 10 Days Prov:ENRIQUE LOPEZ MD 05/20/17 Follow-up Plan chemotherapy with dr Pelayo in her office Primary Care Provider Not On Staff Doctor Time spent on discharge: < 30 minutes ELIZABET ESPINOZA May 23, 2017 22:13
== END 2017-05-21 22:09 | disposition home or self-care (01) | DRG 435 ==
LOC: E/R 16:53 → MS1 05-12 00:19
PROVIDERS: ADMIT Internal Medicine Nephrology; ATTEND Internal Medicine Nephrology
PROC: 0FBG3ZX Excision of Pancreas, Percutaneous Approach, Diagnostic (ICD-10-PCS; principal; 2017-05-13)
PROC: 0JH60WZ Insertion of Totally Implantable Vascular Access Device into Chest Subcutaneous Tissue and Fascia, Open Approach (ICD-10-PCS; 2017-05-17)
PROC: 02H633Z Insertion of Infusion Device into Right Atrium, Percutaneous Approach (ICD-10-PCS; 2017-05-17)
PROC: 3E04305 Introduction of Other Antineoplastic into Central Vein, Percutaneous Approach (ICD-10-PCS; 2017-05-17)
DX: C25.1 Malignant neoplasm of body of pancreas (principal); I50.33 Acute on chronic diastolic (congestive) heart failure; C25.2 Malignant neoplasm of tail of pancreas; C78.7 Secondary malignant neoplasm of liver and intrahepatic bile duct; C77.2 Secondary and unspecified malignant neoplasm of intra-abdominal lymph nodes; R65.10 Systemic inflammatory response syndrome (SIRS) of non-infectious origin without acute organ dysfunction; F17.200 Nicotine dependence, unspecified, uncomplicated; E11.65 Type 2 diabetes mellitus with hyperglycemia; R00.1 Bradycardia, unspecified; Z80.3 Family history of malignant neoplasm of breast; Z80.9 Family history of malignant neoplasm, unspecified
CPT/HCPCS: 36415; 36561; 71010; 71260; 74177; 76942; 77012; 80048; 80053; 80061; 81003; 82962; 83036; 83690; 84436; 84443; 84479; 84480; 84484; 85025; 85610; 85730; 86301; 88307; 88313; 93005; 93306; 96374; 96375; 96376; J9190; J9206; C1788; C9113; J0690; J0696; J1100; J1170; J1200; J1642; J1644; J1815; J2250; J2270; J2405; J3010; J7030; J7040; J7042; J7050; J7070; Q9967